=== PATIENT | male | born 1960 | race Caucasian/White ===

== ENCOUNTER 2020-11-08 11:03 | Emergency (ER) | payer BC, SELFPAY ==
--- NOTE | 2020-11-08 11:07 | ED.MALEGU ---
HPI - Male Genitourinary General Chief complaint: Urogenital-Male Stated complaint: PAINFUL URINATION Time Seen by Provider: 11/08/20 11:07 Source: patient and RN notes reviewed History of Present Illness HPI Narrative: Patient is a 60-year-old male who presents the urgent care with complaints of painful urination and frequency. Patient states that it started 1 week ago and has worsened in the last couple days. Patient reports of some intermittent nausea without vomiting or abdominal pain. Reports of suprapubic pressure. Denies of fever. States that he has cut out soda but otherwise has not done anything [id number] for his symptoms. Denies of blood in the urine or history of kidney stones. No other acute complaints. No acute distress noted. Patient aware of the plan of care. Some parts of this dictation were generated by voice recognition software and may contain typographical and/or grammatical inaccuracies. Related Data Home Medications Medication Instructions Recorded Confirmed No Home Medications 11/08/20 11/08/20 Allergies Allergy/AdvReac Type Severity Reaction Status Date / Time Sulfa (Sulfonamide Allergy Unknown Verified 12/24/18 10:23 Antibiotics) sulfanilamide Allergy Unknown Verified 05/29/10 15:23 Review of Systems Review of Systems: Narrative: CONSTITUTIONAL: Denies fever, chills, or sweats. EYES: Denies visual changes, redness, or discharge. ENT: Denies rhinorrhea, congestion, sore throat, or otalgia. CARDIOVASCULAR: Denies chest pain, palpitations, or edema. RESPIRATORY: Denies cough or dyspnea. GASTROINTESTINAL: Reports of nausea without abdominal pain, vomiting or diarrhea GENITOURINARY: Reports of dysuria and urinary frequency with suprapubic pressure SKIN: Denies rash or itching. MUSCULOSKELETAL: Denies back pain, joint pain, or myalgia. NEUROLOGIC: Denies headache, numbness, or weakness. All other systems reviewed are negative, except as documented in HPI. FORMERLY [facility], [facility] Family History Family History (Updated 01/10/16 @ 23:19 by DOCTOR UNKNOWN) Father Cerebrovascular accident Family history of diabetes mellitus in first degree relative Sibling Family history of diabetes mellitus in first degree relative Social History Social History Alcohol intake: current Comments At the time of my signature, I reviewed and agree with the nursing past medical, surgical, social, and family history. There is no relevant family history pertinent to the patient complaint. Exam Narrative: Exam Narrative: GENERAL: This is a well-nourished, well-developed patient, in no apparent distress. HEAD: normocephalic, atraumatic. EYES: PERRL. Sclera clear/white. Vision is grossly intact. EARS: External ears normal NOSE: External nose normal with no obvious nasal discharge, nares without redness, no rhinorrhea. THROAT: Mucous membranes moist NECK: Neck supple CARDIOVASCULAR: Regular rate and rhythm without murmurs, gallops, or rubs. RESPIRATORY: Clear to auscultation. Breath sounds equal bilaterally. No wheezes, rales, or rhonchi. GASTROINTESTINAL: Abdomen soft, mild suprapubic tenderness,, nondistended. Bowel sounds are active. SKIN: warm, intact with no suspicious lesions or rash, good texture and turgor. NEURO: awake, alert, and oriented to person, place and time. There were no obvious focal neurologic abnormalities. EXTREMITIES: No clubbing, cyanosis, or edema. BACK: Negative bilateral CVA tenderness Course Vital Signs Vital signs: Vital Signs Temperature 98 F 11/08/20 11:10 Pulse Rate 74 11/08/20 11:10 Respiratory Rate 16 11/08/20 11:10 Blood Pressure 120/89 11/08/20 11:10 Pulse Oximetry 99 11/08/20 11:10 Temperature 98 F 11/08/20 11:10 Pulse Rate 74 11/08/20 11:10 Respiratory Rate 16 11/08/20 11:10 Blood Pressure 120/89 11/08/20 11:10 Pulse Oximetry 99 11/08/20 11:10 Reviewed MDM - Male Genitourinary MDM Narrative Medical decision making narrative: Rev
[2020-11-08 11:10] VITALS: BP 120/89; PULSE 74; RESP 16; TEMP 36.6; O2SAT 99
== END 2020-11-08 11:37 | disposition home or self-care (01) ==
PROVIDERS: Emergency Provider Nurse Practitioner Family
DX: R30.0 Dysuria (principal)
CPT/HCPCS: 81003; 99212; G0463

== ENCOUNTER 2022-04-15 17:15 | Emergency (ER) | payer BC, SELFPAY ==
[2022-04-15 17:38] VITALS: BP 143/83; PULSE 91; RESP 16; TEMP 37; O2SAT 96
--- NOTE | 2022-04-15 18:57 | ED.SKABFB ---
HPI - Skin/Abscess/Foreign Bdy General Chief complaint: Skin/Abscess/Foreign Body Stated complaint: rash Time Seen by Provider: 04/15/22 18:53 Source: patient Mode of arrival: ambulatory Limitations: no limitations History of Present Illness HPI narrative: Patient presents today complaining of a painful and itchy rash to his right low back that has been present x1 week. He has tried Benadryl cream with minimal relief. He has had chickenpox as a child. No shingles vaccine. Related Data Allergies Allergy/AdvReac Type Severity Reaction Status Date / Time Sulfa (Sulfonamide Allergy Mild Hives Verified 04/15/22 18:39 Antibiotics) sulfanilamide Allergy Mild Hives Verified 04/15/22 18:39 Review of Systems Review of Systems: CONSTITUTIONAL: Denies body aches, fever, chills, or sweats. EYES: Denies visual changes, redness, or discharge. ENT: Denies rhinorrhea, congestion, sore throat, or otalgia. CARDIOVASCULAR: Denies chest pain, palpitations, or edema. RESPIRATORY: Denies cough or dyspnea. GASTROINTESTINAL: Denies abdominal pain, nausea, vomiting, or diarrhea. GENITOURINARY: Denies dysuria or hematuria. SKIN: + Painful rash MUSCULOSKELETAL: Denies back pain, joint pain, or myalgia. NEUROLOGIC: Denies headache, numbness, tingling, or weakness. PSYCH: Denies depression or anxiety. [facility] Family History Family History Father Cerebrovascular accident Family history of diabetes mellitus in first degree relative Sibling Family history of diabetes mellitus in first degree relative Social History Social History Alcohol intake: current Comments At time of signature, I have reviewed and agree with nursing past medical, surgical, social and family history unless otherwise noted. Please see nursing chart for further information. There is no relevant family history pertinent to the presenting complaint Exam Narrative: GENERAL: Well-appearing, well-nourished, and in no acute distress. HEAD: Normocephalic, atraumatic. EYES: EOMI. No redness or drainage. Conjunctivae normal. ENT: Mucous membranes pink and moist. NECK: Normal AROM. CHEST: No respiratory distress. EXTREMITIES: Normal range of motion. No edema. SKIN: Warm, dry. Capillary refill normal. Normal skin turgor. Cluster of vesicles surrounded by erythema to the right low back. tender to palpation NEURO: No focal deficits. Alert and oriented x3. Gait steady. PSYCH: Normal affect. No signs of depression or anxiety. Course Course Level of Care: Express Care Visit Vital Signs Vital signs: Vital Signs Temperature 98.6 F 04/15/22 17:38 Pulse Rate 91 04/15/22 17:38 Respiratory Rate 16 04/15/22 17:38 Blood Pressure 143/83 H 04/15/22 17:38 Pulse Oximetry 96 04/15/22 17:38 Oxygen Delivery Room Air 04/15/22 17:38 Temperature 98.6 F 04/15/22 17:38 Pulse Rate 91 04/15/22 17:38 Respiratory Rate 16 04/15/22 17:38 Blood Pressure 143/83 H 04/15/22 17:38 Pulse Oximetry 96 04/15/22 17:38 Oxygen Delivery Room Air 04/15/22 17:38 Reviewed. Pt has been instructed to follow up with his PCP regarding his elevated blood pressure today. MDM - Skin/Abscess/Foreign Bdy Differential Diagnosis Differential diagnosis: Likely abscess of skin or subcutaneous tissue, herpes zoster, cellulitis, impetigo and contact dermatitis Critical Care Time Critical Care Time Critical Care Time: No Discharge Plan Discharge Clinical Impression: Herpes zoster Qualifiers: Herpes zoster complications: without complications Qualified Code(s): B02.9 - Zoster without complications Patient Disposition: Home, Self-Care Condition: Stable Instructions: Shingles (ED) Additional Instructions: You have been diagnosed with shingles. Please take the antiviral medication as prescribed. Take Tylenol or ibuprofen for p
== END 2022-04-15 19:03 | disposition home or self-care (01) ==
PROVIDERS: Emergency Provider Nurse Practitioner; PCP Internal Medicine
DX: B02.9 Zoster without complications (principal)
CPT/HCPCS: 99213; G0463

== ENCOUNTER 2022-06-19 13:38 | Emergency (ER) | payer BC, SELFPAY ==
[2022-06-19 13:46] VITALS: BP 122/74; PULSE 83; RESP 16; TEMP 36.3; O2SAT 99
--- NOTE | 2022-06-19 13:54 | ED.URI ---
HPI - URI/Sore Throat General Chief Complaint: Upper Respiratory Infection Stated Complaint: SINUS CONGESTION Time Seen by Provider: 06/19/22 13:54 Source: patient Mode of arrival: ambulatory Limitations: no limitations History of Present Illness HPI Narrative: 62-year-old male presents with complaint of sinus congestion for 2 weeks. Reports that his symptoms initially started with the flu a cannot care to congestion. Is taking [id number] DayQuil NyQuil cold and Sinus and also Benadryl without relief. Afebrile. Denies chest pain and shortness of breath. Is concern for sinus infection. All systems reviewed and negative except as noted above. Related Data Allergies Allergy/AdvReac Type Severity Reaction Status Date / Time Sulfa (Sulfonamide Allergy Mild Hives Verified 04/15/22 18:39 Antibiotics) sulfanilamide Allergy Mild Hives Verified 04/15/22 18:39 Review of Systems Review of Systems: CONSTITUTIONAL: Denies fever, chills, or sweats. EYES: Denies visual changes, redness, or discharge. ENT: Reports rhinorrhea, congestion, sinus pressure. Denies sore throat, or otalgia. CARDIOVASCULAR: Denies chest pain, palpitations, or edema. RESPIRATORY: Denies cough or dyspnea. GASTROINTESTINAL: Denies abdominal pain, nausea, vomiting, or diarrhea. GENITOURINARY: Denies dysuria or hematuria. SKIN: Denies rash or itching. MUSCULOSKELETAL: Denies back pain, joint pain, or myalgia. NEUROLOGIC: Denies headache, numbness, or weakness. PSYCHIATRIC: Denies anxiety or depression. All other systems reviewed are negative, except as documented in HPI. PMFSH Family History Family History Father Cerebrovascular accident Family history of diabetes mellitus in first degree relative Sibling Family history of diabetes mellitus in first degree relative Social History Social History Alcohol intake: current Comments At time of signature, agree with nursing past medical, surgical, social and family history. There is no relevant family history pertinent to the presenting complaint. Exam Narrative: GENERAL: This is a well-nourished, well-developed patient, in no apparent distress. HEAD: normocephalic, atraumatic. EYES: PERRL. Sclera clear/white. Vision is grossly intact. EARS: External ears normal, auditory canals clear and without drainage, TMs normal without perforation. Hearing grossly intact. NOSE: External nose normal with thick cloudy nasal drainage with erythema and swelling to both nares. Bilateral maxillary sinus tenderness. THROAT: Mucous membranes moist, erythema with postnasal drainage. NECK: Neck supple, non-tender without lymphadenopathy, masses or thyromegaly. CARDIOVASCULAR: Regular rate and rhythm without murmurs, gallops, or rubs. RESPIRATORY: Clear to auscultation. Breath sounds equal bilaterally. No wheezes, rales, or rhonchi. SKIN: warm, Dry, intact with no suspicious lesions or rash, good texture and turgor. NEURO: awake, alert, and oriented to person, place and time. There were no obvious focal neurologic abnormalities. EXTREMITIES: No joint tenderness, effusion, or edema noted. Course Course Level of Care: Express Care Visit Vital Signs Vital signs: Vital Signs Temperature 36.3 C L 06/19/22 13:46 Pulse Rate 83 06/19/22 13:46 Respiratory Rate 16 06/19/22 13:46 Blood Pressure 122/74 06/19/22 13:46 Pulse Oximetry 99 06/19/22 13:46 Temperature 36.3 C L 06/19/22 13:46 Pulse Rate 83 06/19/22 13:46 Respiratory Rate 16 06/19/22 13:46 Blood Pressure 122/74 06/19/22 13:46 Pulse Oximetry 99 06/19/22 13:46 Reviewed MDM - URI/Sore Throat MDM Narrative Medical decision making narrative: Patient is aware of diagnosis, understands and agrees to treatment plan. Anticipatory guidance given. Patient agrees to follow-up as directed and is aware of reasons to
== END 2022-06-19 14:06 | disposition home or self-care (01) ==
PROVIDERS: Emergency Provider Nurse Practitioner Family; PCP Internal Medicine
DX: J01.90 Acute sinusitis, unspecified (principal)
CPT/HCPCS: 99213; G0463

== ENCOUNTER 2022-08-15 08:41 | Outpatient (CLI) | payer BC, SELFPAY ==
--- NOTE | ~2022-08-15 | XR_ITS ---
EXAMINATION:[id number] DATE: 08/15/2022 09:00 INDICATION: Neck pain TECHNIQUE: AP, lateral, lateral swimmers and odontoid views of the cervical spine are provided. COMPARISON: None FINDINGS: Alignment is normal. The odontoid process is intact. No fracture is identified. The vertebr al body heights are maintained. There is moderate loss of intervertebral disc space height at C5-6 an d C6-7. There is multilevel moderate facet and uncovertebral joint osteoarthritis. Prevertebral soft tissues are normal. IMPRESSION: 1. Mild to moderate cervical spondylosis without acute findings. Reviewed, dictated and finalized at location [facility]. [employer]
== END 2022-08-15 08:42 | disposition home or self-care (01) ==
LOC: ANHIMG 08:44
PROVIDERS: PCP Internal Medicine; Visit Provider Nurse Practitioner
DX: M47.892 Other spondylosis, cervical region (principal)
CPT/HCPCS: 72040

== ENCOUNTER 2022-09-16 15:30 | Outpatient (RCR) | payer BC, SELFPAY ==
--- NOTE | 2022-08-28 09:46 | PTOPEVAL1 ---
Assessment and note entered by Chris Parks, PT, DPT Evaluation Information Assessment Status Evaluation Diagnosis neck pain with radiculopathy Onset 3 month Subjective Information Pt states he has a pinched nerve in his neck cause pain down into his R arm and hand. He states his fingers are numbness, he states the pain in the back of his arm is more of a tearing pain. 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 Pt states nothing makes his pain better, other than sitting in his recliner. Reported Pain Level Pain Score 5: Self Report Assessment PT Clinical Summary Jae presents to therapy today for his initial evaluation with a diagnosis of cervicalgia. Today he demonstrates decreased active cervical ROM in all directions that is limited by pain, he also has forward head posture with a flattened thoracic curve. He reports numbness and tingling throughout his entire arm, at its worst in his hand. He reports a decreased in peripheral symptoms with cervical distraction. Skilled physical therapy services are indicated to improve ROM, pain, sensation, to educate on body mechanics and posture, and to return to baseline function. Plan of Care Interventions Electrical Stimulation,Hot Pack/Cold Pack,Manual Therapy,Mechanical Traction,Neuro Re-education, Patient/Caregiver Educati,Therapeutic Activities, Therapeutic Exercise PT Services Indicated Yes Treatment Frequency and 2x/wk for 4 wks Duration These treatments will address the objective and functional deficits as defined above. The patient will be advanced safely and appropriately in order for the patient to progress towards his/her prior level of function. Additional exercises will be introduced and as well as a comprehensive home exercise program upon discharge, if needed, ?to ensure carryover of functional gains achieved in the clinic. This treatment plan has been reviewed and agreement upon by the patient.
--- NOTE | 2022-09-16 15:48 | PTOPDC ---
Assessment and note entered by Chris Parks, PT, DPT Evaluation Information Assessment Status Discharge Diagnosis neck pain with radiculopathy Onset 3 month Subjective Information Pt reports no has seen absolutely no improvements with therapy to far. He states he just needs to get an MRI to actually find out whats wrong. He states he can sleep through the night but wakes up in the morning with so much pain. He states he was sitting supporting himself with his R arm and it just completely gave out Pt sits with forward and rounded posture with a downward gaze during subjective information. Reported Pain Level Pain Score 7: Self Report Assessment PT Clinical Summary Jae presents to therapy today for his progress report following 6 visits of skilled therapy to treat his cervical radiculopathy. Today he reports 0% improvement in his overall symptoms. His cervical active ROM has worsened compared to his initial evaluation 3 weeks ago but his passive ROM remains unchanged. He demonstrates mild strength deficits in his R shoulder compared to his L. He would like to be discharged from skilled therapy services at this time and to return to his provider to discuss a further POC. Plan of Care PT Services Indicated No
== END 2022-09-17 11:16 | disposition home or self-care (01) ==
LOC: ANHGOSHPT 15:30
PROVIDERS: PCP Internal Medicine; Visit Provider Nurse Practitioner
DX: M54.2 Cervicalgia (principal)
CPT/HCPCS: 97012; 97110; 97140; 97161

== ENCOUNTER → 2022-09-25 08:53 | Outpatient (CLI) | payer BC, SELFPAY ==
--- NOTE | ~2022-09-25 | MR_ITS ---
MRI of the cervical spine Clinical History: Neck pain Technique: Axial T2-weighted and gradient images, and sagittal T1-weighted, T2-weighted, and STIR jaime ges were acquired. Findings: There is no fracture or subluxation of the cervical spine. Vertebral bodies maintain normal height and alignment. No suspicious bone marrow signal abnormality seen. Intraosseous hemangioma not ed in the T1 vertebral body. At C2-C3, there is no disc bulge or herniation. No spinal canal stenosis, cord compression, or neural foraminal narrowing. At C3-C4, there is no disc bulge or herniation. No spinal canal stenosis, cord compression, or neural foraminal narrowing. At C4-C5, there is minimal disc ossify complex and probable mild bilateral neural foraminal narrowing with mild facet hypertrophy. No spinal canal stenosis or cord compression. At C5-C6, there is mild disc osteophyte complex. There is probable mild facet joint arthropathy. Ther e is bilateral neural foraminal narrowing. No shweta spinal canal stenosis or cord compression. At C6-C7, there is disc osteophyte complex. There is bilateral neural foraminal narrowing, right wors e than left. No shweta canal stenosis or cord compression. No abnormal signal seen in the spinal cord. Paravertebral soft tissues are unremarkable. Impression: Mild degenerative spondylosis, as above. Reviewed, dictated and finalized at [place] [facility]. Impression: Mild degenerative spondylosis, as above.
== END ==
PROVIDERS: PCP Nurse Practitioner; Visit Provider Nurse Practitioner
DX: M47.812 Spondylosis without myelopathy or radiculopathy, cervical region (principal)
CPT/HCPCS: 72141

== ENCOUNTER 2023-01-08 15:50 | Outpatient (CLI) | payer BC, SELFPAY ==
--- NOTE | ~2023-01-08 | XR_ITS ---
XR abdomen/kub 1V 01/08/2023 16:18 INDICATION: Acute right flank pain TECHNIQUE: KUB COMPARISON: 05/26/2010 FINDINGS: Bowel gas pattern is normal. There are cholecystectomy clips. There is no evidence of free air, mass, organomegaly, ascites or obstruction. No abnormal calculi are seen. The bones appear int act. IMPRESSION: 1: No acute abdominal abnormality identified. Reviewed, dictated and finalized at location A.
--- NOTE | ~2023-01-08 | CT_ITS ---
EXAMINATION: CT abdomen pelvis wo con DATE: 01/08/2023 16:12 INDICATION: Acute right flank pain TECHNIQUE: Computed tomography (CT) of the abdomen and pelvis was performed without intravenous contr ast. The dose-length product was 1520.98 mGy-cm. Automated exposure control and iterative reconstruct ion technique were employed. COMPARISON: CT dated 10/31/2015. FINDINGS: Heart size normal. No significant pleural or pericardial effusion. Lung bases are unremarka ble. Mild atherosclerosis without aneurysm. Small bilateral fat-containing inguinal hernias. No lymph adenopathy. There are cholecystectomy clips. The liver, spleen, pancreas, adrenal glands and right kidney are unremarkable. There is a 2 cm left r enal cyst. No hydronephrosis. Prostate gland is enlarged. Bladder is unremarkable. Nonobstructive bow el pattern. Colonic diverticulosis without evidence for diverticulitis. IMPRESSION: 1. No acute abdominal abnormality. Reviewed, dictated and finalized at location A.
== END 2023-01-08 15:51 | disposition home or self-care (01) ==
LOC: ANHIMG 15:54
PROVIDERS: PCP Internal Medicine; Visit Provider Nurse Practitioner Adult Health
DX: R10.9 Unspecified abdominal pain (principal)
CPT/HCPCS: 74018; 74176

== ENCOUNTER 2023-04-10 13:32 | Emergency (ER) | payer BC, SELFPAY ==
[2023-04-10 13:41] VITALS: BP 134/82; PULSE 85; RESP 16; TEMP 36.8; O2SAT 97
--- NOTE | 2023-04-10 13:52 | ED.SKABFB ---
HPI - Skin/Abscess/Foreign Bdy General Chief complaint: Skin/Abscess/Foreign Body Stated complaint: Cist on shoulder Time Seen by Provider: 04/10/23 13:52 Source: patient, RN notes reviewed and old records reviewed Mode of arrival: ambulatory Limitations: no limitations History of Present Illness HPI narrative: 63-year-old male presents to the [facility] with a cyst to the left anterior shoulder. Patient states a week ago was irritating him so he tried squeezing it and got some pus out of it. On Wednesday or states that it swelled back up became red, warm and tried squeezing it again. Was unable to get any fluid out at that time. Today it is painful, red, swollen. States he has had a cyst-like structure there for many years. ? 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 Onset (ago): week(s) (1) Related Data Home Medications Medication Instructions Recorded Confirmed tamsulosin 0.4 mg capsule 0.4 mg PO QHS 08/10/22 08/10/22 Allergies Allergy/AdvReac Type Severity Reaction Status Date / Time Sulfa (Sulfonamide Allergy Mild Hives Verified 08/10/22 08:40 Antibiotics) sulfanilamide Allergy Mild Hives Verified 08/10/22 08:40 Review of Systems Review of Systems: All systems reviewed & are unremarkable except as noted in HPI and below Constitutional: Constitutional: Reports no additional constitutional complaints Eyes: Eyes: Reports no additional eye complaints ENT: Reports system reviewed and no additional complaints, except as documented Cardiovascular: Cardiovascular: Reports no additional cardiovascular complaints, Denies chest pain and Denies dyspnea Respiratory: Respiratory: Reports no additional respiratory complaints, Denies chest congestion, Denies cough and Denies dyspnea Gastrointestinal: Gastrointestinal: Reports no additional gastrointestinal complaints, Denies abdominal pain, Denies nausea and Denies vomiting Musculoskeletal: Musculoskeletal: Reports no additional musculoskeletal complaints Integumentary/Breasts: Skin/Breast: Reports as per HPI Neurologic: Reports system reviewed and no additional complaints, except as documented Psychiatric: Psychiatric: Reports no additional psychiatric complaints Allergic/Immunologic: Allergic/Immunologic: Reports no additional allergic/immunologic complaints [facility]LY [facility] Family History Family History (Updated 08/10/22 @ 08:41 by Divine Babcock [facility]) Father Cerebrovascular accident Family history of diabetes mellitus in first degree relative Sibling Family history of diabetes mellitus in first degree relative Mother Cancer Social History Social History Smoking status: Former smoker Alcohol intake: current Substance use type: does not use Lack of Transportation: No Lack of Food: Never True Current Housing: I Have Housing Concerned About Future Housing: No Difficulty Paying Gas/Electric Bills: No Difficulty Paying for Meds: No Currently Unemployed: No Education: Trade/Vocational Certificate Difficulty w/ Childcare or Family Care: No Comments At the time of my signature, I reviewed and agree with the nursing past medical, surgical, social, and family history. There is no relevant family history pertinent to the patient complaint. Exam Const: General: cooperative, healthy appearing, comfortable, no acute distress, well developed, alert and well nourished Nutritional Appearance: well nourished Orientation/consciousness: patient oriented x3 Limitations: no limitations HENMT: Head: normal to inspection Ears: hearing grossly normal bilaterally and external ears normal Face/Nose/Sinus: Normal external nose present, Normal nares present, Normal nasal mucous membranes and turbinates present, normal facial exam and face symmetric Face and sinus: normal facial exam and face symmetric Mouth: Yes Normal oral and palatal muco
== END 2023-04-10 14:31 | disposition home or self-care (01) ==
PROVIDERS: Emergency Provider Nurse Practitioner; PCP Internal Medicine
DX: L02.414 Cutaneous abscess of left upper limb (principal); D17.1 Benign lipomatous neoplasm of skin and subcutaneous tissue of trunk; Z87.891 Personal history of nicotine dependence; I10 Essential (primary) hypertension; K21.9 Gastro-esophageal reflux disease without esophagitis
CPT/HCPCS: 10060; 87070; 87075; 87076; 87205; 99213; G0463

== ENCOUNTER 2023-12-12 10:09 | Inpatient (IN) | payer OTHER, SELFPAY ==
[2023-12-12] VITALS (12 sets, daily range): BP systolic 119–151; BP diastolic 80–90; PULSE 68–87; RESP 11–27; TEMP 36.3–36.6; O2SAT 92–98; BMI 37.3
--- NOTE | ~2023-12-12 | XR_ITS ---
EXAMINATION: XR sm bowel follow through DATE: 12/13/2023 12:03 INDICATION: Small bowel obstruction. TECHNIQUE: Oral contrast was administered, and a time course of radiographs of the abdomen was obtain ed. Fluoroscopy of the small bowel was not performed. Fluoroscopy exposure time was 0 minutes. The to flaca number of images was 8. COMPARISON: CT abdomen and pelvis 12/12/2023 FINDINGS: The nasogastric tube tip is in the stomach. Surgical clips in the right upper quadrant are likely fro m cholecystectomy. There are dilated loops of proximal small bowel. Transit time from the stomach to proximal colon was approximately 1.5 hours. IMPRESSION: 1. Persistently dilated proximal small bowel with normal transit time of contrast to the colon, consi stent with partial obstruction. Reviewed, dictated and finalized at location A. IMPRESSION: 1. Persistently dilated proximal small bowel with normal transit time of contra st to the colon, consistent with partial obstruction.
--- NOTE | ~2023-12-12 | CT_ITS ---
EXAMINATION: CT abdomen pelvis w con DATE: 12/12/2023 11:35 INDICATION: Abdominal pain, nausea, vomiting and diarrhea TECHNIQUE: Computed tomography (CT) of the abdomen and pelvis was performed with 100 mL Omnipaque-350 intravenous contrast. Automated exposure control and iterative reconstruction technique were employe d. The dose-length product was 1696.07 mGy-cm. COMPARISON: 01/08/2023 FINDINGS: Mild bronchiectasis and dependent atelectasis in the bilateral lower lobes. Heart size is normal. Ath erosclerotic coronary artery and aortic valve calcifications. No pericardial or pleural effusion. Cho lecystectomy clips the gallbladder fossa. Liver, spleen, pancreas, bilateral adrenal glands and right kidney are normal. There are couple left renal cysts the larger measuring 2.5 cm. Mild diverticulosi s without adjacent inflammatory stranding to suggest diverticular colitis. Normal appendix. There is mild dilation of a few segments of small bowel immediately proximal to a focal stricture with minimal surrounding fluid where the small bowel makes a sharp nearly 180 degree change in coarse along the l ateral margin of the junction of the third and fourth portion of the duodenum. There is however gas a nd fluid throughout the more distal small bowel with small amount of additional ascites in the right lower quadrant. No abscess or free intraperitoneal gas. Bladder is normal. Prostatomegaly. Moderate-s ized bilateral fat-containing inguinal hernias. No pathologically enlarged abdominal or pelvic lympha denopathy. Moderate lumbar spondylosis. Chronic mild anterior wedging at T11 and T12. IMPRESSION: 1. Likely early or partial small bowel obstruction with transition point central in the medial left u pper quadrant near the junction of the third and fourth portion of the duodenum potentially related t o an adhesion. Reviewed, dictated and finalized at location A. IMPRESSION: 1. Likely early or partial small bowel obstruction with transition point centra l in the medial left upper quadrant near the junction of the third and fourth p ortion of the duodenum potentially related to an adhesion.
--- NOTE | ~2023-12-12 | XR_ITS ---
EXAMINATION: XR abdomen gastric tube insert DATE: 12/12/2023 12:19 INDICATION: Nasogastric tube placement TECHNIQUE: A supine view of the abdomen and lower chest was obtained for evaluation of feeding tube placement. COMPARISON: CT dated FINDINGS: Nasogastric tube extends into the stomach with distal tip the gastric antrum near the pylorus. Cholec ystectomy clips in right upper quadrant. Dilated gas-filled loops of small bowel in the upper abdomen consistent with small bowel obstruction. Lung bases are clear. IMPRESSION: 1. Nasogastric tube in stomach with distal tip near the gastric pylorus. Could consider withdrawal by 8 cm. 2. Small bowel obstruction. Reviewed, dictated and finalized at location A.
--- NOTE | 2023-12-12 10:25 | ED.ABDPAIN ---
HPI - Abdominal Pain General Chief Complaint: Abdominal Pain Stated Complaint: abd pain Time Seen by Provider: 12/12/23 10:13 History of Present Illness HPI narrative: 63-year-old male with history of cholecystectomy approximately 10 years ago presented to the emergency department for evaluation for nausea vomiting diarrhea and mid abdominal pain. Patient reports symptoms have started on and have been worsening. Patient had a tele doc appointment and was prescribed Bentyl and Zofran yesterday but states these medications have not been helping. Patient feels that his abdomen is more distended than normal. Patient denies any prior history of ureteral calculi. Patient denies any difficulty starting urination. Patient denies any associated chest pain or shortness of breath. Related Data Home Medications Medication Instructions Recorded Confirmed dicyclomine 10 mg capsule 20 mg PO QID 12/12/23 12/12/23 ondansetron 8 mg disintegrating 8 mg PO BID PRN Nausea And Vomiting 12/12/23 12/12/23 tablet Allergies Allergy/AdvReac Type Severity Reaction Status Date / Time Sulfa (Sulfonamide Allergy Mild Hives Verified 12/12/23 10:11 Antibiotics) sulfanilamide Allergy Mild Hives Verified 12/12/23 10:11 Review of Systems Review of Systems: All systems reviewed & are unremarkable except as noted in HPI and below PMFSH Past Medical History Medical History (Updated 12/12/23 @ 17:57 by Lennox Jimenez MD) Gastroesophageal reflux disease Hypertension Surgical History Surgical History (Updated 12/12/23 @ 14:41 by Araceli Moreno PA-C) History of laparoscopic cholecystectomy History of tonsillectomy Family History Family History Father Cerebrovascular accident Family history of diabetes mellitus in first degree relative Sibling Family history of diabetes mellitus in first degree relative Mother Cancer Social History Social History (Updated 12/12/23 @ 14:41 by Araceli Moreno PA-C) Social History: Surrogate medical decision maker: Bailey Edwards, spouse. Code status: Full code. Smoking status: Former smoker Alcohol intake: current Drinks per week: 2 Substance use type: does not use Do You Feel Safe in your Home?: Yes Lack of Transportation: No Lack of Food: Never True Current Housing: I Have Housing Concerned About Future Housing: No Difficulty Paying Gas/Electric Bills: No Difficulty Paying for Meds: No Currently Unemployed: No Education: Trade/Vocational Certificate Difficulty w/ Childcare or Family Care: No Spiritual care concerns: No Exam Narrative: APPEARANCE: Well appearing, no pain, no distress, well-nourished. HEAD: normocephalic, atraumatic. EYES: PERRLA/EOMI, conjunctivae clear. NOSE: Normal no drainage EARS:TMS clear with good light reflex. THROAT: Pharynx clear, no exudate. NECK: Supple. No adenopathy, no masses. RESPIRATORY: Airway patent, respirations nonlabored. Clear to auscultation bilaterally, no rales, rhonchi, wheezing. CARDIOVASCULAR: Regular rate and rhythm without murmurs rubs or gallops. ABDOMINAL: Soft, distended, normal bowel sounds, diffusely tender MUSCULOSKELETAL: Moves all extremities. Strength/ROM intact, No edema, No calf tenderness. NEURO: Alert. Cranial nerves II through XII intact. Grossly intact SKIN: Warm, dry. Normal Color Course Course Emergency Course: Patient was admitted to the hospitalist with surgical consult for small bowel obstruction. Vital Signs Vital signs: Vital Signs Temperature 97.9 F 12/12/23 10:09 Pulse Rate 87 12/12/23 10:09 Respiratory Rate 19 12/12/23 10:09 Blood Pressure 151/90 H 12/12/23 10:09 Pulse Oximetry 97 12/12/23 10:09 Oxygen Delivery Room Air 12/12/23 10:09 Temperature 97.7 F 12/12/23 14:37 Pulse Rate 68 12/12/23 14:37 Respiratory Rate 18 12/12/23 14:37 Blood Pressure 132/86
[2023-12-12 10:27] LABS: Basophils Absolute Auto 0.1 K/mm3 (0.0-0.1); Basophils Percent Auto 0.5 % (0.2-1.2); Eosinophils Absolute Auto 0.2 K/mm3 (0-0.3); Eosinophils Percent Auto 1.5 % (0-4.4); Hematocrit 52.4 % (42.0-52.0); Hemoglobin 17.5 g/dL (14.0-18.0); Immature Granulocyte Absolute 0.06 K/mm3 (0.00-0.031); Immature Granulocyte Percent A 0.5 % (0-0.5); Lymphocytes Absolute Auto 1.47 K/mm3 (0.9-3.2); Lymphocytes Percent Auto 11.3 % (18.3-44.2); Mean Corpuscular HGB Conc 33.4 g/dl (32-36); Mean Corpuscular Hemoglobin 28.1 pg (26-34); Mean Corpuscular Volume 84.1 fl (80-100); Mean Platelet Volume 9.7 fl (7.4-10.4); Monocytes Absolute Auto 1.1 K/mm3 (0.1-0.6); Monocytes Percent Auto 8.5 % (2.6-8.5); Neutrophils Absolute Auto 10.1 K/mm3 (1.3-6.7); Neutrophils Percent Auto 77.7 % (45.5-73.1); Platelet Count Result 300 k/mm3 (150-375); Red Blood Count 6.23 M/mm3 (4.6-6.20); Red Cell Distribution Width 12.9 % (11.5-14.5)
[2023-12-12] MEDS: HYDROmorphone HCL INJ (*CRX) 1 MG/ML SYR 0.5 MG IV PUSH (10:33)
[2023-12-12] MEDS: SODIUM CHLORIDE 0.9% IV 1,000 ML 999 ML IV CONT (10:33)
[2023-12-12] MEDS: ONDANSETRON INJ 4 MG/2 ML VIAL IV PUSH (10:34)
[2023-12-12 10:40] LABS: Alanine Aminotransferase 44 U/L (6-50); Albumin Level 4.9 g/dL (3.5-5.1); Alkaline Phosphatase 91 U/L (38-126); Anion Gap 11 mmol/L (4-12); Aspartate Amino Transferase 30 U/L (17-59); Bilirubin,Total 1.2 mg/dL (0.2-1.3); Blood Urea Nitrogen 12 mg/dL (9-20); Calcium 9.3 mg/dL (8.4-10.2); Carbon Dioxide 29 mmol/L (22-30); Chloride 99 mmol/L (98-107); Estimated CRCL calculation 77 ml/min; Estimated Glomerular Filt Rate > 60; Glucose 136 mg/dL (65-110); Lipase 112 U/L (23-300); Potassium 4.1 mmol/L (3.4-5.0); Sodium 139 mmol/L (137-145)
[2023-12-12 11:58] LABS: Appearance Urine Clear (Clear); Bacteria Urine None Seen /hpf; Bilirubin Urine Negative (Negative); Blood Urine Negative (Negative); Color Urine Dark Yellow (Yellow); Glucose Urine UA Negative (Negative); Ketones Urine Negative (Negative); Leukocyte Esterase Ur Negative LEU/UL (Negative); Nitrate Urine Negative (Negative); Non Pathogenic Casts 0-2; Protein Urine Trace mg/dL (Negative); RBC Urine 0-2 /hpf (0-2); Squamous Epithelial Cell Urine None Seen /hpf (Few); WBC Urine 0-5 /hpf (0-3)
[2023-12-12 11:59] LABS: Specific Grav Ur > 1.045 (1.001-1.035)
[2023-12-12 12:00] LABS: Add Urine Microscopic? YES
--- NOTE | 2023-12-12 12:12 | ECG_ITS ---
Test Date: 2023-12-12 12:28:51 Measurements Intervals [place] Rate: 78 P: 12 MS: 183 QRS: -35 QRSD: 84 T: 14 QT: 383 QTc: 437 Interpretive Statements SINUS RHYTHM MARKED LEFT AXIS DEVIATION [QRS AXIS < -30] PATTERN CONSISTENT WITH PULMONARY DISEASE MINIMAL VOLTAGE CRITERIA FOR LVH, CONSIDER NORMAL VARIANT [MEETS CRITERIA IN ONE OF: R(aVL), S(V1), R(V5), R(V5/V6)+S(V1)] No previous ECG available for comparison Electronically Signed On 12-12-2023 16:18:38 CDT by Yon Cheema M.D.
[2023-12-12] MEDS: SODIUM CHLORIDE 0.9% IV 1,000 ML 250 ML IV CONT (12:33)
[2023-12-12 12:51] LABS: Lactic Acid Reflex 1.2 mmol/L (0.7-2.0)
[2023-12-12 12:57] LABS: Prothrombin Time 13.1 Seconds (11.1-14.7)
[2023-12-12 12:58] LABS: Partial Thromboplastin Time 28.7 Seconds (22.3-36.8)
--- NOTE | 2023-12-12 13:17 | PC.NURSE ---
withdrew ng tube to 68 as recommended by radiology. pt tolerating well clear yellow drainage.
--- NOTE | 2023-12-12 14:00 | ADMGEN ---
This patient, Jae Edwards, was admitted to Medical Room 261-01. Patient/family oriented to hospital policies and general routines including ID bracelet, bed and alarms, visiting hours, pain management, procedures, bathroom and other care routines, personal items, smoking policy, room service/diet, and visiting hours. Information on how to activate the Rapid Response Team has been discussed. Patient/Family are encouraged to report perceived risks to care and to ask questions if they do not understand what they are told or what they should do.
--- NOTE | 2023-12-12 14:38 | PM.IMHP ---
H&P: HPI History of Present Illness Date/Time: 12/12/23 15:00 Chief Complaint: Abdominal pain. Narrative: This is a 63-year-old male with history of laparoscopic cholecystectomy and occasional GERD symptoms who presented to the emergency department for evaluation abdominal pain. The patient provides the following history. He has not been feeling well since with generalized abdominal discomfort, distention, nausea, and vomiting. He spoke with a tele medicine doctor and was prescribed ondansetron and dicyclomine which he has been taking without relief. He has not had a good bowel movement for several days. He is passing a small amount of flatus. He has never had similar symptoms. He denies fever, chills, sweats, hematemesis, melena, hematochezia, chest pain, and shortness of breath. He also denies sick contacts. No history of gallbladder disease, pancreatitis, or peptic ulcers. In the ED: Vital signs were stable on arrival. Labs were significant for WBC count of 13.0, hemoglobin 17.5, lactic acid 1.2, lipase 112. CT of the abdomen and pelvis showed likely earlier partial small bowel obstruction and he is being admitted in this setting for further treatment in surgery consultation. At the time of my evaluation his main complaint is that of discomfort from the NG tube. Review of Systems Review of Systems: 12 systems were reviewed and are negative except for as per HPI. [facility] Past Medical History Medical History (Updated 12/12/23 @ 18:34 by Araceli Moreno PA-C) Gastroesophageal reflux disease Hypertension Not currently on medication. Surgical History Surgical History History of laparoscopic cholecystectomy History of tonsillectomy Family History Family History Father Cerebrovascular accident Family history of diabetes mellitus in first degree relative Sibling Family history of diabetes mellitus in first degree relative Mother Cancer Social History Social History Social History: Surrogate medical decision maker: Bailey Edwards, spouse. Code status: Full code. Smoking status: Former smoker Alcohol intake: current Drinks per week: 2 Substance use type: does not use Do You Feel Safe in your Home?: Yes Lack of Transportation: No Lack of Food: Never True Current Housing: I Have Housing Concerned About Future Housing: No Difficulty Paying Gas/Electric Bills: No Difficulty Paying for Meds: No Currently Unemployed: No Education: Trade/Vocational Certificate Difficulty w/ Childcare or Family Care: No Spiritual care concerns: No Meds Home Medications and Allergies Home Medications Medication Instructions Recorded Confirmed Type dicyclomine 10 mg capsule 20 mg PO QID 12/12/23 12/12/23 History ondansetron 8 mg disintegrating 8 mg PO BID PRN Nausea And Vomiting 12/12/23 12/12/23 History tablet Allergies Allergy/AdvReac Type Severity Reaction Status Date / Time Sulfa (Sulfonamide Allergy Mild Hives Verified 12/12/23 10:11 Antibiotics) sulfanilamide Allergy Mild Hives Verified 12/12/23 10:11 Vital Signs Vital Signs - 24 hr 12/12/23 10:09 12/12/23 12:00 12/12/23 12:15 Temperature 97.9 F Pulse Rate 87 86 Respiratory Rate 19 27 H Blood Pressure 151/90 H Pulse Oximetry 97 95 98 Oxygen Delivery Room Air 12/12/23 12:30 12/12/23 12:45 12/12/23 13:00 Temperature Pulse Rate 78 80 85 Respiratory Rate 22 H 17 11 L Blood Pressure Pulse Oximetry 97 96 97 Oxygen Delivery 12/12/23 13:15 12/12/23 13:30 12/12/23 13:45 Temperature Pulse Rate 84 77 83 Respiratory Rate 13 17 19 Blood Pressure Pulse Oximetry 95 95 92 Oxygen Delivery 12/12/23 13:54 12/12/23 14:37 Temperature 97.7 F Pulse Rate 84 68 Respiratory Rate 19 18 Blood Pressure 119/
[2023-12-12] MEDS: PHENOL/SOD PHENO SPRAY CHERRY (*BKC) 1 SPRAY MUCOUS MEM (17:57)
[2023-12-13] MEDS: SODIUM CHLORIDE 0.9% IV 1,000 ML 125 ML IV CONT ×2 (00:15→08:25)
[2023-12-13 06:00] VITALS: BP 125/60; PULSE 70; RESP 18; TEMP 36.6; O2SAT 94
[2023-12-13 06:27] LABS: Hematocrit 44.5 % (42.0-52.0); Hemoglobin 14.3 g/dL (14.0-18.0); Mean Corpuscular HGB Conc 32.1 g/dl (32-36); Mean Corpuscular Hemoglobin 27.7 pg (26-34); Mean Corpuscular Volume 86.1 fl (80-100); Mean Platelet Volume 9.4 fl (7.4-10.4); Platelet Count Result 219 k/mm3 (150-375); Red Blood Count 5.17 M/mm3 (4.6-6.20); Red Cell Distribution Width 12.7 % (11.5-14.5); White Blood Count 8.1 K/mm3 (4.5-10.0)
[2023-12-13 06:43] LABS: Anion Gap 8 mmol/L (4-12); Blood Urea Nitrogen 12 mg/dL (9-20); Calcium 8.3 mg/dL (8.4-10.2); Carbon Dioxide 27 mmol/L (22-30); Chloride 103 mmol/L (98-107); Estimated CRCL calculation 84 ml/min; Estimated Glomerular Filt Rate > 60; Glucose 86 mg/dL (65-110); Magnesium 1.9 mg/dL (1.6-2.3); Potassium 3.9 mmol/L (3.4-5.0); Sodium 138 mmol/L (137-145)
--- NOTE | 2023-12-13 08:08 | PM.IMPN ---
Progress Note: A&P Assessment and Plan (1) Partial small bowel obstruction: Code(s): K56.600 - Partial intestinal obstruction, unspecified as to cause Status: Acute Assessment and Plan: Complaints of abdominal pain, distention, nausea vomiting. Partial small-bowel obstruction observed on imaging. NG tube placed for decompression NPO Normal saline at 125 mL an hour Dilaudid for pain, Zofran for nausea Small-bowel follow-through ordered for today Surgery consult, recs appreciated Plan Feeding: NPO Analgesia: Dilaudid Thromboembolic prophylaxis: On Lovenox Lines: PIV Antibiotics: na Disposition: Home when return of bowel function Advance Care Plan I have confirmed that the patient's Advanced Care Plan is present, code status is documented, or surrogate decision maker is listed in patient medical record.: Yes Medication Reconciliation I have utilized all available resources to obtain, update and review the patients current medications (includes all prescriptions, OTC, herbals, cannabis, and nutritional supplements).: Yes Subjective Date/time seen: 12/13/23 08:08 Interval history: This is a 63-year-old male with history of laparoscopic cholecystectomy and occasional GERD symptoms who presented to the emergency department for evaluation abdominal pain. 12/12: Patient is seen resting in bed in no acute distress. NG tube is clamped he has just come back from his small-bowel follow-through. His abdomen appears distended but he states does not appear larger than his baseline. The abdomen is soft to palpation. He still is having some pain which he describes as cramping . He reports passing flatus this morning. Last bowel movement was 3 days ago. No nausea or vomiting at present. Review of Systems Review of Systems: 12 systems were reviewed and are negative except for as per HPI. All systems reviewed & are unremarkable except as noted in HPI and below Exam Narrative: General: well appearing, appears stated age. HEENT: normocephalic, atraumatic. Mucous membranes moist. EOMI, PERRLA, bilateral sclera anicteric, no conjunctival injection. Neck supple without JVD, lymphadenopathy, or bruit. Respiratory: clear to auscultation bilaterally. No rales/rhonic/wheezes. Cardiovascular: Regular rate and rhythm, normal S1-S2 upon auscultation. No murmurs, rubs, or clicks. PMI is nondisplaced, capillary refill less than 3 second. Abdomen: Soft, round, no pulsatile masses, + distended and mildly tender to palpation. No rebound, no guarding. No CVA tenderness, no hepatosplenomegaly. Bowel sounds present to all four quadrants. No high pitch or tinkling sounds, resonant to percussion. Extremities: No cyanosis, clubbing, or edema present. Pulses are palpable 2/2. Active ROM to all four extremities. Neuro: Alert and orientated x 4. PERRLA. Cranial nerves 2-12 intact without focal deficit. Skin: Warm, dry, and intact, without rash, erythema, or lesion. Lines: PIV, NG Incisions: na Psych: pleasant, cooperative, normal speech, normal affect, no hallucinations, no dysarthria Objective Data Vital Signs Vital Signs: Vital Signs - 24 hr 12/12/23 10:09 12/12/23 12:00 12/12/23 12:15 Temperature 97.9 F Pulse Rate 87 86 Respiratory Rate 19 27 H Blood Pressure 151/90 H Pulse Oximetry 97 95 98 Oxygen Delivery Room Air 12/12/23 12:30 12/12/23 12:45 12/12/23 13:00 Temperature Pulse Rate 78 80 85 Respiratory Rate 22 H 17 11 L Blood Pressure Pulse Oximetry 97 96 97 Oxygen Delivery 12/12/23 13:15 12/12/23 13:30 12/12/23 13:45 Temperature Pulse Rate 84 77 83 Respiratory Rate 13 17 19 Blood Pressure Pulse Oximetry 95 95 92 Oxygen Delivery 12/12/23 13:54 12/12/23 14:37 12/12/23 20:00 Temperature 97.7 F Pulse Rate 84 68 Respiratory Rate 19 18 Blood Pressure 119/80 132/86 Pulse Oximetry 92 98 Oxygen Delivery Room Air 12/12/23 21:44
[2023-12-13] MEDS: ENOXAPARIN 40 MG/0.4 ML SYRINGE SUB-Q (08:25)
--- NOTE | 2023-12-13 09:22 | PM.CNGS ---
Assessment and Plan Assessment and plan (1) Partial small bowel obstruction: Code(s): K56.600 - Partial intestinal obstruction, unspecified as to cause Status: Acute Assessment and Plan: Patient presented with 2-3 days of what sounds like a viral illness or gastroenteritis and developed worsening abdominal pain and distention. CT suggests early versus partial small bowel obstruction with a transition point in the 3rd to 4th portion of the duodenum. His only previous abdominal surgery was a laparoscopic cholecystectomy over 10 years ago, which typically does not cause significant intraabdominal adhesions. This could also be related to gastroenteritis/ileus. He has no peritoneal signs on exam and is clinically improving. His WBC count has normalized and lactic acid was normal on admission. Will continue conservative treatment for now with NG tube decompression, bowel rest, and IV fluids. Water-soluble small bowel follow through was ordered for today to further evaluate the small bowel obstruction. If contrast moves through to the colon without evidence of an obstruction, then we will remove his NG tube and start him on a clear liquid diet. If he has evidence of a high-grade obstruction, then he could require surgical exploration. (2) Obesity (BMI 30-39.9): Code(s): E66.9 - Obesity, unspecified Status: Acute Plan I have discussed the patient's case and plan of care with Dr. Mathew. Thank you for allowing us to see the patient in consultation and we will continue to follow along with you. History of Present Illness Consult details Consult date: 12/13/23 Reason for consult: other (Small-bowel obstruction) Requesting physician: Lennox Jimenez MD Narrative: This is a 63-year-old man who presented to the ER yesterday with complaints of abdominal pain. He was out of town last week for work and had been eating out at restaurants throughout the week. He woke up morning with some generalized abdominal discomfort and developed nausea, vomiting, and diarrhea. He initially thought this was food poisoning. Over the next 2-3 days, his nausea, vomiting, and diarrhea persisted. Over the weekend, his diarrhea and vomiting resolved, but he noticed more generalized abdominal pain with bloating and distention. He had a telehealth visit and was prescribed dicyclomine and ondansetron, which were providing no relief. Due to his persistent symptoms, he presented to the ER for evaluation yesterday. In the ED, his vital signs were stable. [place] [address], lactic acid 1.2. CT scan of the abdomen and pelvis showed likely early or partial small bowel obstruction with a transition point central in the medial left upper quadrant near the junction of the third and fourth portion of the duodenum potentially related to an adhesion. He was admitted in this setting and an NG tube was placed. He is now seen on the medical floor in surgical consultation for small-bowel obstruction. His only previous abdominal surgery was a laparoscopic cholecystectomy in 2009. He denies any previous small-bowel obstructions. This morning, his abdominal pain has resolved and his bloating has improved. He reports flatus this morning. No BM for about 2 days. Review of Systems Review of Systems: All systems reviewed & are unremarkable except as noted in HPI and below PMFSH Past Medical History Medical History (Updated 12/13/23 @ 09:34 by JUANI Romeo) Gastroesophageal reflux disease Hypertension Not currently on medication. Surgical History Surgical History History of breast lump/mass excision History of laparoscopic cholecystectomy History of tonsillectomy Family History Family History Father Cerebrovascular accident Family history of diabetes mellitus in first degree relative Sibling Family history
[2023-12-13 11:36] VITALS: O2SAT 94
[2023-12-13 14:00] VITALS: BP 118/81; PULSE 106; RESP 18; TEMP 36.6; O2SAT 96
[2023-12-13 19:43] VITALS: BP 149/80; PULSE 93; RESP 18; TEMP 37.1; O2SAT 95
[2023-12-14 05:00] VITALS: BP 123/72; PULSE 75; RESP 18; TEMP 36.8; O2SAT 96
[2023-12-14] MEDS: SODIUM CHLORIDE 0.9% IV 1,000 ML 70 ML IV CONT (05:57)
[2023-12-14] MEDS: ENOXAPARIN 40 MG/0.4 ML SYRINGE SUB-Q (08:16)
[2023-12-14 08:20] VITALS: O2SAT 99
--- NOTE | 2023-12-14 09:17 | PM.IMPN ---
Progress Note: A&P Assessment and Plan (1) Partial small bowel obstruction: Code(s): K56.600 - Partial intestinal obstruction, unspecified as to cause Status: Acute Assessment and Plan: Complaints of abdominal pain, distention, nausea vomiting. Partial small-bowel obstruction observed on imaging. NG tube placed for decompression NPO Normal saline at 125 mL an hour Dilaudid for pain, Zofran for nausea Small-bowel follow-through ordered for today Surgery consult, recs appreciated 12/13: Nursing yesterday said surgery was okay with d/c'ing NG tube and starting clears. Received full liquids for breakfast today....Small bowel follow through from yesterday showed persistently dilated small bowel with partial obstruction. 4 BMs charted from yesterday. Plan Feeding: Full liquid---advanced as tolerated Analgesia: Dilaudid Thromboembolic prophylaxis: On Lovenox Lines: PIV Antibiotics: na Disposition: Home when return of bowel function Advance Care Plan I have confirmed that the patient's Advanced Care Plan is present, code status is documented, or surrogate decision maker is listed in patient medical record.: Yes Medication Reconciliation I have utilized all available resources to obtain, update and review the patients current medications (includes all prescriptions, OTC, herbals, cannabis, and nutritional supplements).: Yes Subjective Date/time seen: 12/14/23 09:17 Interval history: This is a 63-year-old male with history of laparoscopic cholecystectomy and occasional GERD symptoms who presented to the emergency department for evaluation abdominal pain. 12/12: Patient is seen resting in bed in no acute distress. NG tube is clamped he has just come back from his small-bowel follow-through. His abdomen appears distended but he states does not appear larger than his baseline. The abdomen is soft to palpation. He still is having some pain which he describes as cramping . He reports passing flatus this morning. Last bowel movement was 3 days ago. No nausea or vomiting at present. Review of Systems Review of Systems: All systems reviewed & are unremarkable except as noted in HPI and below Exam Narrative: General: well appearing, appears stated age. HEENT: normocephalic, atraumatic. Mucous membranes moist. EOMI, PERRLA, bilateral sclera anicteric, no conjunctival injection. Neck supple without JVD, lymphadenopathy, or bruit. Respiratory: clear to auscultation bilaterally. No rales/rhonic/wheezes. Cardiovascular: Regular rate and rhythm, normal S1-S2 upon auscultation. No murmurs, rubs, or clicks. PMI is nondisplaced, capillary refill less than 3 second. Abdomen: Soft, round, no pulsatile masses, + distended and mildly tender to palpation. No rebound, no guarding. No CVA tenderness, no hepatosplenomegaly. Bowel sounds present to all four quadrants. No high pitch or tinkling sounds, resonant to percussion. Extremities: No cyanosis, clubbing, or edema present. Pulses are palpable 2/2. Active ROM to all four extremities. Neuro: Alert and orientated x 4. PERRLA. Cranial nerves 2-12 intact without focal deficit. Skin: Warm, dry, and intact, without rash, erythema, or lesion. Lines: PIV, NG Incisions: na Psych: pleasant, cooperative, normal speech, normal affect, no hallucinations, no dysarthria Objective Data Vital Signs Vital Signs: Vital Signs - 24 hr 12/13/23 11:36 12/13/23 14:00 12/13/23 19:43 Temperature 97.8 F 98.8 F Pulse Rate 106 H 93 Respiratory Rate 18 18 Blood Pressure 118/81 149/80 H Pulse Oximetry 94 96 95 Oxygen Delivery Room Air 12/13/23 20:00 12/14/23 05:00 Temperature 98.3 F Pulse Rate 75 Respiratory Rate 18 Blood Pressure 123/72 Pulse Oximetry 96 Oxygen Delivery Room Air Intake/Output Intake/Output: Intake & Output 12/11/23 12/12/23 12/13/23 12/14/23 23:59 23:59 23:59 23:59 Intake Total 1000 2980 250 Balance 1000 2980 250
[2023-12-14 10:05] LABS: Hematocrit 43.4 % (42.0-52.0); Hemoglobin 14.2 g/dL (14.0-18.0); Mean Corpuscular HGB Conc 32.7 g/dl (32-36); Mean Corpuscular Hemoglobin 27.8 pg (26-34); Mean Corpuscular Volume 84.9 fl (80-100); Mean Platelet Volume 9.9 fl (7.4-10.4); Platelet Count Result 245 k/mm3 (150-375); Red Blood Count 5.11 M/mm3 (4.6-6.20); Red Cell Distribution Width 12.4 % (11.5-14.5); White Blood Count 8.5 K/mm3 (4.5-10.0)
[2023-12-14 10:15] LABS: Alanine Aminotransferase 30 U/L (6-50); Albumin Level 3.8 g/dL (3.5-5.1); Alkaline Phosphatase 77 U/L (38-126); Anion Gap 7 mmol/L (4-12); Aspartate Amino Transferase 22 U/L (17-59); Bilirubin,Total 0.7 mg/dL (0.2-1.3); Blood Urea Nitrogen 11 mg/dL (9-20); Calcium 8.7 mg/dL (8.4-10.2); Carbon Dioxide 28 mmol/L (22-30); Chloride 103 mmol/L (98-107); Estimated CRCL calculation 91 ml/min; Estimated Glomerular Filt Rate > 60; Glucose 123 mg/dL (65-110); Potassium 3.5 mmol/L (3.4-5.0); Sodium 138 mmol/L (137-145)
[2023-12-14 10:16] LABS: Magnesium 1.9 mg/dL (1.6-2.3)
--- NOTE | 2023-12-14 11:09 | PM.PNGS ---
Progress Note: A&P Assessment and Plan (1) Partial small bowel obstruction: Code(s): K56.600 - Partial intestinal obstruction, unspecified as to cause Status: Acute Assessment and Plan: Resolving with conservative management. SBFT suggested partial SBO with normal transit time to the colon. Bowels are moving. Continue to advance diet as tolerated. If he is able to tolerate solid foods this afternoon, then he can be discharged from a surgical standpoint. Follow up only p.r.n.. Plan I have discussed the patient's case and plan of care with Dr. Mathew. Subjective Subjective Date/Time Seen: 12/14/23 11:09 Patient reports: no new complaints, feels better, tolerating liquids well, flatus and bowel movement Interval history: Patient feeling much better today. No abdominal pain, nausea, vomiting, or bloating. He has had innumerable bowel movements since his water-soluble contrast study. Tolerating clear liquids. Exam GI: Inspection: non-distended GI Palp: Yes Soft to palpation, No Tenderness to palpation present (GI), No Guarding due to palpation present (GI) and No Rebound tenderness present Auscultation: normal bowel sounds Objective Data Vital Signs Vital Signs: Vital Signs - 24 hr 12/13/23 11:36 12/13/23 14:00 12/13/23 19:43 Temperature 97.8 F 98.8 F Pulse Rate 106 H 93 Respiratory Rate 18 18 Blood Pressure 118/81 149/80 H Pulse Oximetry 94 96 95 Oxygen Delivery Room Air 12/13/23 20:00 12/14/23 05:00 12/14/23 08:20 Temperature 98.3 F Pulse Rate 75 Respiratory Rate 18 Blood Pressure 123/72 Pulse Oximetry 96 99 Oxygen Delivery Room Air Room Air Intake/Output Intake/Output: Intake & Output 12/11/23 12/12/23 12/13/23 12/14/23 23:59 23:59 23:59 23:59 Intake Total 1000 2980 928 Balance 1000 2980 928 Meds/Results Medications: Active Medications Generic Name Dose Route Start Last Admin Trade Name Freq PRN Reason Stop Dose Admin Enoxaparin Sodium 40 mg 12/13/23 09:00 12/14/23 08:16 Enoxaparin 40 Mg/0.4 Ml Syringe SUB-Q 40 mg DAILY ANTONY Administration Hydromorphone HCl 0.5 mg 12/12/23 12:30 Hydromorphone Hcl Inj (*Crx) 1 Mg/Ml Syr IV PUSH Q4H PRN Pain Rated 7-10 Ondansetron HCl 4 mg 12/12/23 12:30 Ondansetron Inj 4 Mg/2 Ml Vial IV PUSH Q4H PRN Nausea Phenol 1 spray 12/12/23 17:36 12/12/23 17:57 Phenol/Sod Pheno [place] (*Bkc) MUCOUS MEM 1 spray PRN PRN Administration Sore Throat Radiology Results: ITS Impressions Abdomen/Pelvis CT 12/12/23 11:43 IMPRESSION: 1. Likely early or partial small bowel obstruction with transition point central in the medial left upper quadrant near the junction of the third and fourth portion of the duodenum potentially related to an adhesion. Abdomen X-Ray 12/12/23 12:35 IMPRESSION: 1. Nasogastric tube in stomach with distal tip near the gastric pylorus. Could consider withdrawal by 8 cm. 2. Small bowel obstruction. Small Bowel X-Ray 12/13/23 12:07 IMPRESSION: 1. Persistently dilated proximal small bowel with normal transit time of contrast to the colon, consistent with partial obstruction. Labs Labs: Laboratory Results - last 24 hr 12/14/23 09:25 WBC 8.5 RBC 5.11 Hgb 14.2 Hct 43.4 MCV 84.9 MCH 27.8 MCHC 32.7 RDW 12.4 Plt Count 245 MPV 9.9 Sodium 138 Potassium 3.5 Chloride 103 Carbon Dioxide 28 Anion Gap 7 BUN 11 Creatinine 1.00 Estim Creat Clear Calc 91 Estimated GFR > 60 Glucose 123 H Calcium 8.7 Magnesium 1.9 Total Bilirubin 0.7 AST 22 ALT 30 Alkaline Phosphatase 77 Total Protein 7.0 Albumin 3.8
[2023-12-14 14:00] VITALS: BP 110/70; PULSE 79; RESP 17; TEMP 36.8; O2SAT 96
--- NOTE | 2023-12-14 14:12 | PM.DS ---
DS: Admitting Diagnosis Discharge Date 12/13 Admitting Diagnosis abdominal pain DS: Discharge Diagnosis Discharge Diagnosis (1) Partial small bowel obstruction: Code(s): K56.600 - Partial intestinal obstruction, unspecified as to cause Status: Acute Assessment and Plan: Complaints of abdominal pain, distention, nausea vomiting. Partial small-bowel obstruction observed on imaging. NG tube placed for decompression NPO Normal saline at 125 mL an hour Dilaudid for pain, Zofran for nausea Small-bowel follow-through ordered for today Surgery consult, recs appreciated DS: Summary Hospital Course Reason for hospitalization: Partial small-bowel obstruction Hospital Course: This is a 63-year-old gentleman with a past medical history of laparoscopic cholecystectomy and occasional GERD who presented with abdominal pain. Imaging showed a partial small bowel obstruction for which an NG tube was placed in surgery was consulted. He had a small-bowel follow-through which showed normal transit through the small bowel. Patient was able to have a bowel movement and tolerated diet without recurrent nausea, vomiting, or abdominal pain. Time Spent with Patient Time attestation: Total time spent providing and/or coordinating discharge services: 66 Exam Narrative: General: well appearing, appears stated age. HEENT: normocephalic, atraumatic. Mucous membranes moist. EOMI, PERRLA, bilateral sclera anicteric, no conjunctival injection. Neck supple without JVD, lymphadenopathy, or bruit. Respiratory: clear to auscultation bilaterally. No rales/rhonic/wheezes. Cardiovascular: Regular rate and rhythm, normal S1-S2 upon auscultation. No murmurs, rubs, or clicks. PMI is nondisplaced, capillary refill less than 3 second. Abdomen: Soft, round, no pulsatile masses, + distended and mildly tender to palpation. No rebound, no guarding. No CVA tenderness, no hepatosplenomegaly. Bowel sounds present to all four quadrants. No high pitch or tinkling sounds, resonant to percussion. Extremities: No cyanosis, clubbing, or edema present. Pulses are palpable 2/2. Active ROM to all four extremities. Neuro: Alert and orientated x 4. PERRLA. Cranial nerves 2-12 intact without focal deficit. Skin: Warm, dry, and intact, without rash, erythema, or lesion. Lines: PIV, NG Incisions: na Psych: pleasant, cooperative, normal speech, normal affect, no hallucinations, no dysarthria DS: Data Data Completed and Pending Labs on day of discharge: Labs from last 24 hours 12/14/23 09:25 WBC 8.5 RBC 5.11 Hgb 14.2 Hct 43.4 MCV 84.9 MCH 27.8 MCHC 32.7 RDW 12.4 Plt Count 245 MPV 9.9 Sodium 138 Potassium 3.5 Chloride 103 Carbon Dioxide 28 Anion Gap 7 BUN 11 Creatinine 1.00 Estim Creat Clear Calc 91 Estimated GFR > 60 Glucose 123 H Calcium 8.7 Magnesium 1.9 Total Bilirubin 0.7 AST 22 ALT 30 Alkaline Phosphatase 77 Total Protein 7.0 Albumin 3.8 Discharge Plan Discharge Attending physician on discharge: George Kohli Consulting providers: Julio Mathew Discharging Clinician: Dora Gardiner Anticipated Discharge Date/Time: 12/14/23 14:20 Patient Disposition: Home, Self-Care Activity: may shower Diet: low fiber Discharge Instructions: Your admitted and found have a partial small-bowel obstruction. This is likely from a recent viral gastroenteritis. Recommend following a low-fiber diet for the next few days until your bowel movements have returned to normal and her abdominal distention is resolved. Please continue to eat small, frequent meals, chewing your food completely and remaining upright when eating and drinking. Should you have recurrent abdominal pain, nausea, vomiting, or inability to pass gas or stool please report to be re-evaluated. You follow-up with the primary care provider in 1-2 weeks given his hospitalization Patient Instructions: Antibiotic Form Sheldon
== END 2023-12-14 15:05 | disposition home or self-care (01) | DRG 390 ==
LOC: ANHED 10:32 → ANH2MED 13:23
PROVIDERS: Physician Assistant; Admitting Provider Internal Medicine; Emergency Provider Emergency Medicine; PCP Internal Medicine; Visit Provider Nurse Practitioner Acute Care
DX: K56.600 Partial intestinal obstruction, unspecified as to cause (principal); K21.9 Gastro-esophageal reflux disease without esophagitis; E66.9 Obesity, unspecified; I10 Essential (primary) hypertension; Z68.37 Body mass index [BMI] 37.0-37.9, adult; Z90.49 Acquired absence of other specified parts of digestive tract; Z87.891 Personal history of nicotine dependence
CPT/HCPCS: 36415; 74177; 74250; 80048; 80053; 81001; 83605; 83690; 83735; 85025; 85027; 85610; 85730; 93005; 96361; 96374; 96375; 99285; A9270; G0378; J1170; J1650; J2405; J7030; Q9967

== ENCOUNTER 2024-07-24 15:51 | Emergency (ER) | payer OTHER, SELFPAY ==
[2024-07-24 16:44] VITALS: BP 116/73; PULSE 63; RESP 16; TEMP 36.1; O2SAT 97
--- NOTE | 2024-07-24 17:55 | ED_ITS ---
HPI - Eye Problem General Chief complaint: Eye Problems Stated complaint: Eye Infection Time Seen by Provider: 07/24/24 17:40 Source: patient, RN notes reviewed and old records reviewed Mode of arrival: ambulatory Limitations: no limitations History of Present Illness HPI Narrative: 64 year old male who presents to [facility] care with complaints of burning and crusting to the inner aspect of his right eye for the past week especially in morning. Patient denies any visual changes or any sharp pain to his right eye. Patient reports that his right eye feels irritated. No acute redness of eye or of conjunctiva. MD chief complaint: other (right eye burning and crusting inner aspect of eye) Onset (ago): week(s) (1) Location: right eye Severity: mild Treatments Prior to Arrival: none Related Data Home Medications ?Medication ?Instructions ?Recorded ?Confirmed ?Last Taken ?Type aspirin 81 mg tablet,delayed 81 mg PO DAILY 05/08/24 07/24/24 Unknown History release (Adult Low Dose Aspirin) atorvastatin 10 mg tablet (Lipitor) 10 mg PO DAILY 07/13/24 07/24/24 Unknown History Allergies Allergy/AdvReac Type Severity Reaction Status Date / Time Sulfa (Sulfonamide Allergy Mild Hives Verified 07/24/24 16:49 Antibiotics) sulfanilamide Allergy Mild Hives Verified 07/24/24 16:49 Review of Systems Review of Systems: CONSTITUTIONAL: Denies fever, chills, or sweats. EYES: Denies visual changes. Reports , irritation, discharge.which is clear and crusting to the inner aspect of his right eye, denies any sharp pain to eye ENT: Denies rhinorrhea, congestion, sore throat, or otalgia CARDIOVASCULAR: Denies chest pain, palpitations, or edema RESPIRATORY: Denies cough or dyspnea. SKIN: Denies rash or itching. NEUROLOGIC: Denies headache All systems reviewed & are unremarkable except as noted in HPI and below PMFSH Past Medical History Medical History Diabetes mellitus Hyperlipidemia Gastroesophageal reflux disease Hypertension Not currently on medication. Surgical History Surgical History History of breast lump/mass excision History of laparoscopic cholecystectomy History of tonsillectomy Family History Family History Father Cerebrovascular accident Family history of diabetes mellitus in first degree relative Sibling Family history of diabetes mellitus in first degree relative Mother Cancer Social History Social History Social History: Surrogate medical decision maker: Bailey Edwards, spouse. Code status: Full code. Smoking status: Former smoker Alcohol intake: current Drinks per week: 2 Substance use type: does not use Do You Feel Safe in your Home?: Yes Lack of Transportation: No Lack of Food: Never True Current Housing: I Have Housing Concerned About Future Housing: No Difficulty Paying Gas/Electric Bills: No Difficulty Paying for Meds: No Currently Unemployed: No Education: Trade/Vocational Certificate Difficulty w/ Childcare or Family Care: No Spiritual care concerns: No Comments At time of signature, agree with nursing past medical, surgical, social and family history. There is no relevant family history pertinent to the presenting complaint Exam Narrative: GENERAL: Well-appearing, well-nourished, and in no acute distress. HEAD: Normocephalic, atraumatic. EYES: PERRLA and EOMI. Upper and lower eyelids unremarkable. No periorbital cellulitis noted. Sclera and conjunctivae are clear, denies any visual changes reports crusting to inner canthus of right eye, clear drainage. ENT: Nares clear, no rhinorrhea or epistaxis. Mucous membranes moist. NECK: Supple.no lymphadenopathy CHEST: Clear to auscultation. No respiratory distress. no cough noted SAO2 97% o n room air HEART: Regular rate and rhythm. No murmur heard. Normal peripheral pulses. SKIN: Warm, dry, no rash. NEURO: No focal deficits. Alert and oriented x3. Course Course Emergency Course: Patient is aware of diagnosis, understands and agrees to treatment plan. Anticipatory guidance given. Patient agrees to follow-up as directed and is aware of reasons to seek care at the emergency department. Portions of this record may have been created with voice recognition software Level of Care: Express Care Visit Vital Signs Vital signs: Vital Signs Temperature 36.1 C L 07/24/24 16:44 Pulse Rate 63 07/24/24 16:44 Respiratory Rate 16 07/24/24 16:44 Blood Pressure 116/73 07/24/24 16:44 Pulse Oximetry 97 07/24/24 16:44 Temperature 36.1 C L 07/24/24 16:44 Pulse Rate 63 07/24/24 16:44 Respiratory Rate 16 07/24/24 16:44 Blood Pressure 116/73 07/24/24 16:44 Pulse Oximetry 97 07/24/24 16:44 Reviewed MDM - Eye Problem MDM Narrative Medical decision making narrative: Consideration of the following conditions may be warranted for the presenting problem, they are not final diagnoses: Bacterial conjunctivitis, allergic conjunctivitis, viral conjunctivitis, foreign body, blepharitis, chalazion, hordeolum, corneal abrasion.? Exam findings show no acute concerns or changes; patient is non-toxic appearing and is in no distress.? Patient is appropriate for outpatient treatment and follow-up. Differential Diagnosis Differential diagnosis: Likely conjunctivitis and other (right eye crusting inner canthus, right eye infection) Medical Records Attestation: I reviewed the patient's medical records. Critical Care Time Critical Care Time Critical Care Time: No Discharge Plan Discharge Clinical Impression: Eye infection Qualifiers: Laterality: right Qualified Code(s): H44.001 - Unspecified purulent endophthalmitis, right eye Conjunctivitis Qualifiers: Conjunctivitis type: unspecified Laterality: right Qualified Code(s): H10.9 - Unspecified conjunctivitis Patient Disposition: Home, Self-Care Condition: Stable Instructions: Antibiotic Form, Conjunctivitis (ED) Additional Instructions: Cold compresses to the eyes for comfort May need warm compresses to remove debris in the morning When cleaning the eyes used a washcloth in one direction then change washcloths or use a cotton ball in one direction and then his cotton balls Eyedrops as directed--may be more soothing if left in the refrigerator Do not share medicine--do not touch the eye with the medicine Tylenol or ibuprofen for pain Avoid screen time--television, computer, tablet or phone. Also no reading or driving Follow-up with PCP or auto battery builder as directed if no improvement in 48 hours Patient Language: B[place] Prescriptions: New ofloxacin 0.3 % drops See Rx Instructions .ROUTE .COMPLEX Qty: 10 0RF Rx Instructions: put 1-2 drps into affected eye(s) every 2-4 h x 2 days, then 1-2 drps 4 times/day days 3-7 No Action atorvastatin [Lipitor] 10 mg tablet 10 mg PO DAILY aspirin [Adult Low Dose Aspirin] 81 mg tablet,delayed release (DR/EC) 81 mg PO DAILY Follow-up/Referrals: Francois Zimmer DO [Primary Care Provider] - Time of Disposition: 17:59 Quality [place] Scale Eyes: Open Verbal: Oriented and Alert Motor: Follows Commands [place] Total Score: 15
== END 2024-07-24 18:09 | disposition home or self-care (01) ==
PROVIDERS: Emergency Provider Registered Nurse; PCP Internal Medicine
DX: H44.001 Unspecified purulent endophthalmitis, right eye (principal); H10.9 Unspecified conjunctivitis; Z79.82 Long term (current) use of aspirin; E11.9 Type 2 diabetes mellitus without complications; E78.5 Hyperlipidemia, unspecified; K21.9 Gastro-esophageal reflux disease without esophagitis; I10 Essential (primary) hypertension; Z87.891 Personal history of nicotine dependence
CPT/HCPCS: 99213; G0463

== ENCOUNTER 2024-09-13 15:23 | Outpatient (CLI) | payer OTHER, SELFPAY ==
--- OUTSIDE RECORDS SUMMARY | 2024-09-13 16:35 | XMS_ITS | Clinical Summary ---
Author Organization [facility] Address [address] [place] [id number] Care Team Providers Care Subcontracts Manager Name Role Phone Unavailable Primary Care Provider Unavailabl e Social History Tobacco Use Types Packs/Day Years Used Date Smoking Tobacco: Never Assessed Sex and Gender Information Value Date Recorded Sex Assigned at Not on file Legal Sex Male 8:00 PM CDT Gender Identity Not on file Sexual Orientation Not on file Plan of Treatment Health Maintenance Due Date Last Done Comments Colorectal Cancer Screening Colonoscopy (10 Years) 1960 Annual Physical 01/24/1963 Hepatitis C 01/24/1978 DTaP, Tdap and Td Vaccines ( 1 - Tdap) 01/24/1979 Zoster Vaccines (1 of 2) 01/24/2010 COVID-19 Vaccine (2023-2 5 season) 2024 Influenza Adult (#1) 2024 RSV Immunization or 60+ Years (1 - 1-dose 75+ series) 01/24/2035 Meningococcal B Vaccine Aged Out No l onger eligible based on patient's age to complete this topic Meningococcal Vaccine Aged Out No senthil jeannette eligible based on patient's age to complete this topic Pneumococcal Vaccine: Pediat rics (0 to 5 Years) and At-Risk Patients (6 to 64 Years) Aged Out No longer eligible b ased on patient's age to complete this topic RSV Immunizations Under 20 Months Aged Out No longer eligible based on patient's age to complete this topic
--- OUTSIDE RECORDS SUMMARY | 2024-09-13 16:35 | XMS_ITS | Clinical Summary ---
Author Organization [facility] Address [address] [place] [address] Care Team Providers Care Face And Fill Packer Name Role Phone Tigre Gardiner MD Primary Care Provider Allergies Active Allergy Reactions Criticality Noted Date Comments Sulfa (Sulfonamide Antibiotics) Headache Reaction: Headache, Medications diazePAM (VALIUM) 5 mg tabletIndicatio ns:Muscle Spasm Take 1 tablet (5 mg total) by mouth every 12 (twelve) hours as needed for muscle spasms 15 tablet 08/06/2022 Active lidocaine (LIDODERM) 5 % Place 1 patch on the skin daily for 15 days Remove & discard patch within 12 hours or as directed by . 15 patch 08/06/2022 Active Active Problems Problem Noted Date Diagnosed Date Chronic fatigue 07/24/2020 Chronic pain of left knee 09/26/2018 Chronic pain of right knee 09/26/2018 Induratio penis plastica 10/24/2008 Immunizations Immunization Administration Dates Next Due Flucelvax Influenza Quad 04/06/2020,03/05/2018,0 07/24/2016 Influenza, Quadrivalent, Spl it, Preservative Free, Intramuscular 03/04/2019,07/10/2017 Surgical History Surgery Date Site/Laterality Comments BREAST LUMPECTOMY Left Breast Lumpectomy - 04/2005 (Added by TW Conv) CHOLECYSTECTOMY 06/14/2009 - 06/13/2010 Medical History Medical History Date Comments Migraine Family History Medical History Relation Name Comments Diabetes Brother 1 No Known Problems Brother 2 No Known Problems Daughter 1 No Known Problems Daughter 2 Diabetes Father Breast cancer Mother Relation Name Status Comments Brother 1 Alive Brother 2 Alive Daughter 1 Alive Daughter 2 Alive Father Mother Alive Social History Tobacco Use Types Packs/Day Years Used Date Smoking Tobacco: Former Cigarettes Q uit: 1986 Smokeless Tobacco: Never Alcohol Use Standard Drinks/Week Comments Not Currently 0 (1 standard drink = 0.6 oz pur e alcohol) PHQ-2 Answer Date Recorded PHQ-2 Total Score (If total score is 3 or more points, staff should administer the PHQ-9) 0 07/24/2020 Personal Safety Answer Date Recorded Getting School Help Needed Denies 06/01 Sex and Gender Information Value Date Recorded Sex Assigned at Not on file Legal Sex Male 2:25 AM DOCTOR OF MEDICINE Gender Identity Not on file Sexual Orientation Not on file Obstetrics History Last Filed Vital Signs Vital Sign Reading Time Taken Comments Blood Pressure 135/84 08/06/2022 9:30 PM DOCTOR OF MEDICINE Pulse 69 08/06/2022 9:30 PM DOCTOR OF MEDICINE Temperature 36.4 C (97.6 F) 08/06/2022 6:27 PM DOCTOR OF MEDICINE Respiratory Rate 20 08/06/2022 9:30 PM DOCTOR OF MEDICINE Oxygen Saturation 95% 08/06/2022 9:30 PM DOCTOR OF MEDICINE Inhaled Oxygen Concentration - - Weight 126.2 kg (278 lb 3.2 oz) 021 11:08 AM DOCTOR OF MEDICINE Height 188 cm (6' 2 ) 07/24/2020 11:08 AM DOCTOR OF MEDICINE Body Mass Index 35.72 07/24/2020 11:08 AM DOCTOR OF MEDICINE Plan of Treatment Health Maintenance Due Date Last Done Comments Hepatitis C Screening 1960 DTaP/Tdap/Td Vaccine (1 - Tdap) 01/24/1971 Hepatitis B Screening 01/24/1978 Regular Well Visit/Exam 18-64 01/24/1978 Zoster Vaccine (1 of 2) 01/24/2010 Depression Screening 07/24/2021 07/24/2020 Prostate Cancer Screening-PSA 07/25/2022 07/25/2020 Influenza Vaccine (#1) 2024 0, 03/04/2019, 03/05/2018, Additional history exists Colon Cancer Screening-Colonoscopy 06/14/2025 06/14/2015 Colon Cancer Screening-CT Colonography Discontinued 06/14/2015 Colon Cancer Screening-DNA Stool Discontinued 06/14/2015 Colon Cancer Screening-FIT Discontinued 06/14/2015 Colon Cancer Screening-Sigmoidoscopy Discontinued 06/14/2015 Pneumococcal vaccine <65 Aged Out No longer eligible based on patient's age to complete this topic Procedures Procedure Name Priority Date/Time Associated Diagnosis Comments PSA SCREEN Routine 07/25/2020 9:08 AM DOCTOR OF MEDICINE Screening for hypothyroidism Screening for hyperlipidemia Screening PSA (prostate specific antigen) Screening for hypertension Fatigue, unspecified type Class 2 obesity with body mass index (BMI) of 35.0 to 35.9 in adult, unspecified obesity type, unspecified whether serious comorbidity present COLONOSCOPY Routine 06/14/2015 from Last 3 Months or Most Recently Relevant to Health Maintenance Results * (ABNORMAL) PSA screen (07/25/2020 9:08 AM DOCTOR OF MEDICINE) [facility] PSA 4.3(H) 0.0 - 4.0 ng/mL [facility] - Comment: Corinne ECLIA methodology. According to the [place] [employer], Serum PSA should decrease and remain at undetectable levels after radical prostatectomy. The AUA defines biochemical recurrence as an initial PSA value 0.2 ng/mL or greater followed by a subsequent confirmatory PSA value 0.2 ng/mL or greater. Values obtained with different assay methods or kits cannot be used interchangeably. Results cannot be interpreted as absolute evidence of the presence or absence of malignant disease. Blood specimen (specimen) 07/25/2020 9:08 AM DOCTOR OF MEDICINE 07/25/2020 Narrative [facility] - 07/26/2020 9:37 AM DOCTOR OF MEDICINE Performed at: - [facility] [id number] Linen Worker: Rick Villalta PhD, Phone: [phone] us Tigre Gardiner MD LAB BLOOD ORDERABLES Final R esult [facility] - 01 * Colonoscopy (06/14/2015) Anatomical Region Laterality Modality Other us Historical Provider ENDOSCOPY PROCEDURES Toma l Result from Last 3 Months or Most Recently Relevant to Health Maintenance Insurance BLUE ACCESS OOS BLUE ACCESS OOS BLUE ACCESS OOS Care Teams Face And Fill Packer Relationship Specialty Start Date End Date Tigre Gardiner MD [address] [place] [address] PCP - General Family Medicine 07/24/20
--- OUTSIDE RECORDS SUMMARY | 2024-09-13 16:35 | XMS_ITS | Referral Summary ---
Author Organization [facility] Address [address] [place] [address] Care Team Providers Care Lean Consultant Name Role Phone Tigre Gardiner MD Primary Care Provider [phone] Allergies Active Allergy Reactions Criticality Noted Date [...] Quadrivalent, Spl it, Preservative Free, Intramuscular 03/04/2019,07/10/2017 Social History Tobacco Use Types Packs/Day Years Used Date Smoking Tobacco: Former Cigarettes Q uit: 1987 Smokeless Tobacco: Never Alcohol Use Standard Drinks/Week [...] on file Legal Sex Male 2:25 AM INSULATOR CUTTER AND FORMER Gender Identity Not on file Sexual Orientation Not on file Last Filed Vital Signs Vital Sign Reading Time Taken Comments Blood Pressure 135/84 08/06/2022 9:30 PM INSULATOR CUTTER AND FORMER Pulse 69 08/06/2022 9:30 PM INSULATOR CUTTER AND FORMER Temperature 36.4 C (97.6 F) 08/06/2022 6:27 PM INSULATOR CUTTER AND FORMER Respiratory Rate 20 08/06/2022 9:30 PM INSULATOR CUTTER AND FORMER Oxygen Saturation 95% 08/06/2022 9:30 PM INSULATOR CUTTER AND FORMER Inhaled Oxygen Concentration - - Weight 126.2 kg (278 lb 3.2 oz) 021 11:08 AM INSULATOR CUTTER AND FORMER Height 188 cm (6' 2 ) 07/24/2020 11:08 AM INSULATOR CUTTER AND FORMER Body Mass Index 35.72 07/24/2020 11:08 AM INSULATOR CUTTER AND FORMER Plan of Treatment Not on file Procedures Procedure Name Priority Date/Time Associated Diagnosis Comments PSA SCREEN Routine 07/25/2020 9:08 AM INSULATOR CUTTER AND FORMER Screening for hypothyroidism Screening for hyperlipidemia Screening PSA (prostate specific antigen) Screening for hypertension Fatigue, unspecified type Class 2 obesity with body mass index (BMI) of 35.0 to 35.9 in adult, unspecified obesity type, unspecified whether serious comorbidity present COLONOSCOPY Routine 06/14/2015 from Last 3 Months or Most Recently Relevant to Health Maintenance Results * (ABNORMAL) PSA screen (07/25/2020 9:08 AM INSULATOR CUTTER AND FORMER) PSA 4.3(H) 0.0 - 4.0 ng/mL [facility] - 01 Comment: Corinne ECLIA methodology. According to the [place] [employer], Serum PSA should decrease and [...] disease. Blood specimen (specimen) 07/25/2020 9:08 AM INSULATOR CUTTER AND FORMER 07/25/2020 Narrative [facility] - 07/26/2020 9:37 AM INSULATOR CUTTER AND FORMER Performed at: [facility] [address] [id number] Compliance Director: Rick Villalta PhD, Phone: [phone] us Tigre Gardiner MD LAB BLOOD ORDERABLES Final R esult [facility] - 01 * Colonoscopy (06/14/2015) Anatomical Region Laterality Modality Other us Historical Provider ENDOSCOPY PROCEDURES Toma l Result from Last 3 Months or Most Recently Relevant to Health Maintenance Insurance Content [employer] OOS BLUE ACCESS OOS Care Teams Lean Consultant Relationship Specialty Start Date End Date Tigre Gardiner MD [address] [facility] [address] [address] PCP - General Family Medicine 07/24/20
--- OUTSIDE RECORDS SUMMARY | 2024-09-13 16:35 | XMS_ITS | Encounter Summary ---
Author Organization [facility] Address [address] [place] [address] Care Team Providers Care Chronograph Operator Name Role Phone Unavailable Primary Care Provider Unavailabl e Encounter Details Date Type Department Care Team (Late st Contact Info) Description 04/16/2006 Outpatient Historical [facility] Nikita Duncan [place] [facility] [place] [address] Er, Authorized P NO ADDRESS ON FILE Unspecified Chest Pain (Primary Dx) Social History Tobacco Use Types Packs/Day Years Used Date Smoking Tobacco: Never Assessed Sex and Gender Information Value Date Recorded Sex Assigned at Not on file Legal Sex Male 3:16 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 LIFE 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 Gender Identity Not on file Sexual Orientation Not on file documented as of this encounter Plan of Treatment Not on file documented as of this encounter Procedures Procedure Name Priority Date/Time Associated Diagnosis Comments CBC WITH DIFFERENTIAL Routine 04/16/2006 11:01 AM DIRECTOR LIFE INSURANCE CBC WITH DIFFERENTIAL Routine 04/16/2006 11:01 AM DIRECTOR LIFE INSURANCE documented in this encounter Results * (ABNORMAL) CBC WITH DIFFERENTIAL (04/16/2006 11:01 AM DIRECTOR LIFE INSURANCE) NEUTROPHILS 78(H) 45 - 70 % INTERFAC E SYSTEM LYMPHOCYTES 15(L) 16 - 45 % INTERFAC E SYSTEM MONOCYTES 6 3 - 13 % INTERFACE SYSTEM EOSINOPHILS 1 0 - 7 % INTERFAC E SYSTEM BASOPHILS 1 0 - 2 % INTERFACE SYSTEM NEUTROPHIL ABSOLUTE 6.68 1.90 - 7.00 K/uL INTERFACE SYSTEM LYMPHOCYTE ABSOLUTE 1.26 0.70 - 4.50 K/uL INTERFACE SYSTEM MONOCYTE ABSOLUTE 0.49 0.10 - 1.30 K/uL INTERFACE SYSTEM EOSINOPHIL ABSOLUTE 0.09 0.00 - 0.70 K/uL INTERFACE SYSTEM BASOPHILS ABSOLUTE 0.06 0.00 - 0.20 K/uL INTERFACE SYSTEM 04/16/2006 11:0 1 AM DIRECTOR LIFE INSURANCE Nikita Sandoval MD HEMATOLOGY ORDERABLES Final Re sult INTERFACE SYSTEM Refer to clinic/hospital department * (ABNORMAL) CBC WITH DIFFERENTIAL (04/16/2006 11:01 AM DIRECTOR LIFE INSURANCE) WBC 8.6 4.0 - 9.8 K/uL INTERFACE SYSTEM RBC 5.62(H) 4.50 - 5.40 M/uL INTERFACE SYSTEM HEMOGLOBIN 16.3 13.6 - 16.5 g/dL INTERFACE SYSTEM HEMATOCRIT 45.5 40.0 - 48.0 % INTERFACE SYSTEM MCV 81.0(L) 82.0 - 99.0 fL INTERFACE SYSTEM MCH 29.0 27.2 - 32.6 pg INTERFACE SYSTEM MCHC 35.8(H) 31.5 - 35.5 % INTERFACE SYSTEM RDW 12.7 11.5 - 14.5 % INTERFACE SYSTEM RDW-STDEV 37.8 37.1 - 48.7 fL INTERFACE SYSTEM PLATELETS 259 140 - 350 K/uL INTERFACE SYSTEM MPV 10.2 9.3 - 12.4 fL INTERFACE SYSTEM 04/16/2006 11:0 1 AM DIRECTOR LIFE INSURANCE Nikita Sandoval MD HEMATOLOGY ORDERABLES Final Re sult INTERFACE SYSTEM Refer to clinic/hospital department documented in this encounter Visit Diagnoses Diagnosis Chest pain, unspecified- Primary documented in this encounter
--- OUTSIDE RECORDS SUMMARY | 2024-09-13 16:35 | XMS_ITS | CONTINUITY OF CARE DOCUMENT ---
Author Name emilie aprilskylar Address Unknown Organization [facility] Address [address] [place] [address] Phone [phone] Care Team Providers Care Order Analyst Name Role Phone Chandu Echeverria MD Unavailable [phone] DOTTY MENDOSA DO Unavailable DOTTY MENDOSA DO Unavailable PROBLEMS Condition Status Date Provider Notes Chest pain--stress nuc nl, e cho ef nl, mild LVH, 05/2024 active Abimael Ahmedzayung Shortness of breath active Abimael Ahmedzai ÓSCAR--severe active Abimael Ahsirenazayung Family history of CVA active Abimael Nascimento Atherosclerosis, coronary, seen on CT active 9 Abimael Nascimento Cardiology examination active Abimael Nascimento ENCOUNTERS Date Type Provider Location Encounter Diag nosis - In-person encounter Office Visit Chandu Echeverria MD [facility] Office ÓSCAR--severeChest pain--stress nuc nl, echo ef nl, mild LVH, 05/2024 - In-person encounter Office Visit Chandu Echeverria MD [place] [facility] Cardiology examinationAtheroscl erosis, coronary, seen on CTFamily history of CVAOSA--severeShortn ess of breathChest pain--stress nuc nl, echo ef nl, mild LVH, 05/2024 VITAL SIGNS Date Observation Value Provider Body Mass Index (Ratio) 36.21 kg/m2 Francois Echeverria MD blood pressure, diastolic 77 mm[Hg] Evelin anne [facility] blood pressure, systolic 134 mm[Hg] Carolina atkins [facility] oxygen saturation, oximetry 96 % Mally [facility] pulse rate 60 /min Mally [facility] weight E&M 267 [lb_av] Mally [facility] height E&M 72 [in_i] [facility] (Ratio) 38.02 kg/m2 Francois Echeverria MD weight E&M 280.4 [lb_av] [facility] blood pressure, diastolic 85 mm[Hg] [facility] blood pressure, systolic 122 mm[Hg] Aminata ytler [place] blood pressure, cuff size regular [facility] oxygen saturation, oximetry 94 % [facility] pulse rate 79 /min [facility] height E&M 72 [in_i] [facility] ALLERGIES Allergy Name Onset Date Reaction Criticality Status SULFA High Criticality active RESULTS Date Observation Value Provider Reference Range Interpretation Location 1 c-reactive protein, quantitative, serum 4.99 mg/L [facility] 0.00-3.00 High 1 pro brain natriuretic peptide <36 pg/mL [facility] 0-210 1 hemoglobin A1C, blood, as % of total hemoglobin 6.5 % [facility] 4.8-5.6 High 1 lipoprotein, beta, serum, point, quantitative, calculated 95 mg/dL [facility] 0-99 1 HDL cholesterol, serum 39 mg/dL [facility] >39 Low 1 triglyceride, serum, random 67 mg/dL [facility] 0-149 1 cholesterol, serum 147 mg/dL [facility] 651-068 3477/11/0 1 alanine aminotransferase (SGPT), serum 23 1/L [facility] 0-44 1 aspartate aminotransferase (SGOT), serum 18 1/L [facility] 0-40 1 alkaline phosphatase, serum 94 1/L [facility] 44-121 1 bilirubin, serum, total 0.4 mg/dL [facility] 0.0-1.2 1 globulin, serum 2.3 [facility] 1.5-4.5 1 albumin, serum 4.2 g/dL [facility] 3.9-4.9 1 protein, total, serum 6.5 g/dL [facility] 6.0-8.5 1 calcium, serum 9.2 mg/dL [facility] 8.6-10.2 1 carbon dioxide, venous blood 23 mmol/L [facility] 20-29 1 chloride, serum 105 mmol/L [facility] 96-106 1 potassium, serum 4.5 mmol/L [facility] 3.5-5.2 1 sodium, serum 141 mmol/L [facility] 352-170 3029/11/0 1 urea nitrogen/creatinine ratio, serum 10 [facility] 10-24 1 creatinine, serum 1.18 mg/dL [facility] 0.76-1.27 1 urea nitrogen, blood 12 mg/dL [facility] 8-27 1 blood glucose, random 98 mg/dL [facility] 70-99 1 basophil count, absolute 0.1 x10E3/uL [facility] 0.0-0.2 1 Eosinophil Absolute Count 0.2 X10E3/UL [facility] 0.0-0.4 1 monocyte count, blood, automated 0.7 X10E3/UL [facility] 0.1-0.9 1 lymphocyte count, blood, automated 1.2 X10E3/UL [facility] 0.7-3.1 1 Absolute Neutrophils 5.0 X10E3/UL [facility] 1.4-7.0 1 basophils as percent of blood leukocytes 1 % [facility] Not Estab. 1 eosinophils as percent of blood leukocytes 3 % [facility] Not Estab. 1 monocytes as percent of blood leukocytes 9 % [facility] Not Estab. 1 lymphocytes as percent of blood leukocytes 17 % [facility] Not Estab. 1 neutrophils as percent of blood leukocytes 70 % [facility] Not Estab. 1 platelet count 250 X10E3/UL [facility] 139-358 4431/11/0 1 red blood cell distribution width 13.4 % [facility] 11.6-15.4 1 mean corpuscular hemoglobin concentration, RBC 32.9 G/DL [facility] 31.5-35.7 1 mean corpuscular hemoglobin, RBC 27.6 pg [facility] 26.6-33.0 1 mean corpuscular volume, RBC 84 fL [facility] 79-97 1 hematocrit, blood 48.6 % [facility] 37.5-51.0 1 hemoglobin, blood 16.0 g/dL [facility] 13.0-17.7 1 erythrocyte (RBC) count 5.79 X10E6/UL [facility] 4.14-5.80 1 leukocyte count, blood 7.1 X10E3/UL [facility] 3.4-10.8 HISTORY OF MEDICATION USE Medication Status Instructions Dates Provider Indications Com ments atorvastatin 10 mg tablet active TAKE 1 TABLET BY MOUTH EVERY DAY Abimael Nascimento aspirin 81 mg tablet,delayed release (DR/EC) active Abimael Nascimento FUNCTIONAL STATUS Date Observation Value Provider HRA, CV Assess/Plan, Angina (inactive) Management Plan continue current therapy Abimael Nascimento INSURANCE PROVIDERS Payer name Policy type / Coverage type [place] [employer] party ID [facility] Commercial insurance company [facility] [id number] ADVANCE DIRECTIVES Name Date DISCUSSED - NO DECISION MADE TREATMENT PLAN Date Name Performer Cardiology: H is updated medication list for this problem includes: Aspirin 81 Mg Tablet,delayed Release (dr/ec) (Aspirin) Chandu Echeverria MD Cardiology: H is updated medication list for this problem includes: Aspirin 81 Mg Tablet,delayed Release (dr/ec) (Aspirin) Chandu Echeverria MD Cardiology: H is updated medication list for this problem includes: Aspirin 81 Mg Tablet,delayed Release (dr/ec) (Aspirin) Chandu Echeverria MD Cardiology:This visi t has been a part of the consistent, comprehensive, and ongoing management of the chronic medical condition(s) listed above for the patient. Chandu Echeverria MD Cardiology: O rders: E KG (CPT-88370) S [facility] Study Home (CPT-69825) C omplete Echo (21115) S tress Exercise Cardiolite (CPT-07840) C OMPREHENSIVE METABOLIC PANEL, W/EGFR (55417) L IPID PANEL (7600) H EMOGLOBIN A1c (496) C BC (INCLUDES DIFF/PLT) (6399) L ipoprotein (a) (712120) P ROBNP, N TERMINAL (38484) C RP, high sensitivity (12300) His updated medication list for this problem includes: Aspirin 81 Mg Tablet,delayed Release (dr/ec) (Aspirin) Abimael Nascimento Cardiology: O rders: C omplete Echo (07033) S tress Exercise Cardiolite (CPT-78646) C OMPREHENSIVE METABOLIC PANEL, W/EGFR (94119) L IPID PANEL (7600) H EMOGLOBIN A1c (496) C BC (INCLUDES DIFF/PLT) (6399) L ipoprotein (a) (028322) P ROBNP, N TERMINAL (31808) C RP, high sensitivity (98957) Abimael Nascimento Cardiology: O rders: C omplete Echo (48158) S tress Exercise Cardiolite (CPT-99168) C OMPREHENSIVE METABOLIC PANEL, W/EGFR (56668) L IPID PANEL (7600) H EMOGLOBIN A1c (496) C BC (INCLUDES DIFF/PLT) (6399) L ipoprotein (a) (936747) P ROBNP, N TERMINAL (68337) C RP, high sensitivity (76035) Abimael Ahmedzai Cardiology: O rders: S lee Study Home (CPT-26305) C OMPREHENSIVE METABOLIC PANEL, W/EGFR (30962) L IPID PANEL (7600) H EMOGLOBIN A1c (496) C BC (INCLUDES DIFF/PLT) (6399) L ipoprotein (a) (008869) P ROBNP, N TERMINAL (02313) C RP, high sensitivity (19418) Abimael Ahmedzai Cardiology: O rders: E KG (CPT-21476) C OMPREHENSIVE METABOLIC PANEL, W/EGFR (12129) L IPID PANEL (7600) H EMOGLOBIN A1c (496) C BC (INCLUDES DIFF/PLT) (6399) L ipoprotein (a) (922651) P ROBNP, N TERMINAL (38553) C RP, high sensitivity (60457) Abimael Ahmedzai Date Name CRP, high sensitivit y PROBNP, N TERMINAL Lipoprotein (a) CBC (INCLUDES DIFF/P LT) HEMOGLOBIN A1c LIPID PANEL COMPREHENSIVE METABO LIC PANEL, W/EGFR Stress Exercise Card iolite Complete Echo Sleep Study Home HISTORY OF PROCEDURES Procedure Date Procedure Name Provider Procedure Notes S tatus Complex e/m visit add on Chandu Echeverria MD completed EKG Chandu Echeverria MD completed
--- OUTSIDE RECORDS SUMMARY | 2024-09-13 16:35 | XMS_ITS | Encounter Summary ---
Author Organization [facility] Address [address] [place] [address] Care Team Providers Care Fish Stringer Assembler Name Role Phone Unavailable Primary Care Provider Unavailabl e Encounter Details Date Type Department Care Team (Late st Contact Info) Description 04/16/2006 Outpatient Historical [facility] Support [facility]. ([facility]) [address] 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
--- OUTSIDE RECORDS SUMMARY | 2024-09-13 16:35 | XMS_ITS | Encounter Summary ---
Author Organization [facility] Address [address] [place] [address] Care Team Providers Care Aircraft Mechanic Armament Name Role Phone Unavailable Primary Care Provider Unavailabl e Encounter Details Date Type Department Care Team (Late st Contact Info) Description 04/16/2006 Outpatient Historical [facility] Support [facility]. ([facility]) [address] 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
--- OUTSIDE RECORDS SUMMARY | 2024-09-13 16:35 | XMS_ITS | Clinical Summary ---
Author Organization [facility] Address [address] Attn: Epic Prelude ADT [place] [address] Care Team Providers Care Personnel Recruiter Name Role Phone Unavailable Primary Care Provider Unavailabl e Medications citalopram (CELEXA) 20 mg Oral tablet Take 1 Tab by mouth daily at bedtime. 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
--- OUTSIDE RECORDS SUMMARY | 2024-09-13 16:35 | XMS_ITS | Encounter Summary ---
Author Organization [facility] Address [address] [facility] [place] [address] Care Team Providers Care Copy Holder Name Role Phone Unavailable Primary Care Provider Unavailabl e Encounter Details Date Type Department Care Team (Late st Contact Info) Description 02/03/2018 Lab Requisition [facility] DermPath Lab [address] [place] [id number] Evan Rand MD [address] [place] [address] Social History Tobacco Use Types Packs/Day Years Used Date Smoking Tobacco: Never Assessed Sex and Gender Information Value Date Recorded Sex Assigned at Not on file Gender Identity Not on file Sexual Orientation Not on file documented as of this encounter Plan of Treatment Not on file documented as of this encounter Procedures Procedure Name Priority Date/Time Associated Diagnosis Comments DERMATOPATHOLOGY Routine 02/02/2018 12:0 0 AM CDT documented in this encounter Results * DERMATOPATHOLOGY (02/02/2018 12:00 AM CDT) Case Report Dermatopathology Report Case: [id number] Authorizing Provider: Evan Rand MD Collected: 02/02/2018 12:00 AM Pathologist: Soni Miranda MD Received: 02/03/2018 12:29 PM Specimens: A) - Skin, left buttock B) - Skin, right sup buttock 8 5:51 PM CDT DERMATOPATHOLOGY LABORATORY Final Diagnosis Specimen A. SKIN, left buttock: CHRONIC SPONGIOTIC DERMATITIS (L30.8) (see microscopic description and comment) Specimen B. SKIN, right sup buttock: CHRONIC SPONGIOTIC DERMATITIS (L30.8) (see microscopic description and comment) 5:51 PM [facility] DERMATOPATHOLOGY LABORATORY Clinical History A-B: R/O eczema, CTCL, other dermatitis. 5:51 PM [facility] DERMATOPATHOLOGY LABORATORY Gross Description Specimen A: Received is one formalin filled container labeled with the patient's name and designated left buttock. The specimen consists of a punch biopsy measuring [id number], bisected. Jar 0. Specimen B: Received is one formalin filled container labeled with the patient's name and designated right sup buttock. The specimen consists of a punch biopsy measuring [id number], bisected. Jar 0. 5:51 PM [facility] DERMATOPATHOLOGY LABORATORY Microscopic Description Specimen A. SKIN, left buttock: Sections show compact keratosis with only very focal parakeratosis. There is slight acanthosis of the epidermis. Rare dyskeratotic keratinocytes are seen in the upper epidermis. Within the dermis there is a perivascular and interstitial predominately lymphocytic infiltrate. Focal lymphocytes are seen along the lower epidermis and only a few lymphocytes are seen within the epidermis. Grocott's methenamine silver (GMS) stain fails to highlight fungal elements in the available sections. The infiltrate is composed of mostly CD3 positive T-cells. The CD3 positive T-cells are a mix of CD4 and CD8 positive cells. Both cell types are seen in the epidermis and the ratio appears overall preserved. COMMENT: The histologic differential diagnosis includes an eczematous dermatitis. If clinical suspicion for mycosis fungoides persists a re-biopsy of sun protect skin that has not been treated for 2 weeks is reccommended as early lesions of mycosis fungoides are challenging histologically. Clinicopathologic correlation is recommended. This case was also reviewed by Dr. Vandana Baltazar who agrees with the diagnosis. Specimen B. SKIN, right sup buttock: Sections show compact keratosis with only very focal parakeratosis. Within the dermis there is a perivascular and interstitial predominately lymphocytic infiltrate. Focal extravasated erythrocytes are seen. Grocott's methenamine silver (GMS) stain fails to highlight fungal elements in the available sections. The infiltrate is composed of mostly CD3 positive T-cells. Only a few T-cells are seen in the epidermis. The CD3 positive T-cells are a mix of CD4 and CD8 positive cells. Both cell types are seen in the epidermis and the ratio appears overall preserved. COMMENT: See comment for Specimen A. 8 5:51 PM CDT DERMATOPATHOLOGY LABORATORY Disclaimer An external and internal positive and negative controls are appropriate for the histochemical, immunohistochemical and immunofluorescence stain(s) in this case (if any), except where stated explicitly. The performance characteristics of the stain(s) cited in this report were developed and its performance characteristic determined by the Dermatopathology Laboratory at [facility]. These tests need not be, and therefore are not, approved by the [place] Food and Drug Administration. The tests are used for clinical purposes. Billing Codes Specimen Charges Stain Charges 00582 23322 1 1 93185 78949 29031 36096 63984 02862 00446 75952 1 1 1 1 1 1 1 1 8 5:51 PM CDT DERMATOPATHOLOGY LABORATORY Embedded Images 8 5:51 PM CDT DERMATOPATHOLOGY LABORATORY Pathology/Cytology TISSUE SPECIMEN FROM SKIN / Unknown 02/02/2018 02/03/2018 12:29 PM CDT Miscellaneous samples (specimen) TISSUE SPECIMEN FROM SKIN / Unknown 02/02/2018 02/03/2018 12:29 PM CDT Evan Rand MD LAB - PATHOLOGY/CYTO LOGY ORDERABLES DERMATOPATHOLOGY LABORATORY [facility] - Department of Dermatology [address] [place] [address], 5th [place] [address], [facility] [phone] documented in this encounter Visit Diagnoses Not on filedocumented in this encounter
--- OUTSIDE RECORDS SUMMARY | 2024-09-13 16:35 | XMS_ITS | Clinical Summary ---
Author Organization [facility] Address [address] [facility] [place] [address] Care Team Providers Care Marketing Production Coordinator Name Role Phone Unavailable Primary Care Provider Unavailabl e Source Comments [facility],non-owned Affiliates and Associated Physician Practices is amultiple site organization consisting of ambulatory clinics and hospital sitesin [place], [place], [place] and [place]. This disclosure is being madepursuant to the Care Everywhere program and may not contain all information available regarding this patient. Last updated 18.[facility] Allergies Active Allergy Reactions Criticality Noted Date Comments Sulfa Drugs Headache 05/21/2018 Medications Be aware that medications may not be up to date on this document. Always verify current medications with the patient. No known medications Immunizations Name Administration Dates Next Due Covid Pfizer primary monovalent 12+ yr 0.3mL Pur ple cap 10/11/2021 Family History Medical History Relation Name Comments CVA Father Relation Name Status Comments Father Social History Tobacco Use Types Packs/Day Years Used Date Smoking Tobacco: Never Smokeless Tobacco: Never Sex and Gender Information Value Date Recorded Sex Assigned at Not on file Gender Identity Not on file Sexual Orientation Not on file Last Filed Vital Signs Vital Sign Reading Time Taken Comments Blood Pressure 126/70 05/05/2021 11:54 AM FACILITIES OPERATOR Pulse 83 05/05/2021 11:54 AM FACILITIES OPERATOR Temperature 36.6 C (97.8 F) 05/05/2021 11:54 AM FACILITIES OPERATOR Respiratory Rate 16 05/05/2021 11:54 AM FACILITIES OPERATOR Oxygen Saturation 96% 05/05/2021 11:54 AM FACILITIES OPERATOR Inhaled Oxygen Concentration - - Weight 117.9 kg (260 lb) 05/21/2018 2:52 PM FACILITIES OPERATOR Height 182.9 cm (6') 05/21/2018 2:52 PM FACILITIES OPERATOR Body Mass Index 35.26 05/21/2018 2:52 PM FACILITIES OPERATOR Plan of Treatment Health Maintenance Due Date Last Done Comments COLOGUARD (AGES 45-75) - COLON CA SCREENING 1960 COLON MONITORING 1960 COLONOSCOPY - COLON CA SCREENING 1960 CT COLONOGRAPHY - COLON CA SCREENING 1960 Colorectal Cancer Screening 1960 FIT - COLON CA SCREENING 1960 FLEX SIG - COLON CA SCREENING 1960 LIPID TESTING 1960 HIV SCREENING 01/24/1975 HEPATITIS C SCREENING 01/20/1978 DTAP/TDAP/TD VACCINES (1 - Tdap) 01/24/1979 PNEUMOCOCCAL VACCINE 50+ (1 of 1 - PCV) 01/24/2010 ZOSTER VACCINE (1 of 2) 01/24/2010 COVID-19 VACCINE (4 - season) 2024 10/11/2021, 10/19/2020, 10/05/2020 INFLUENZA VACCINE (#1) 2024 , 04/06/2020, 03/04/2019, Additional history exists DEPRESSION SCREENING 06/14/2024 Respiratory Syncytial Virus (RSV) Vaccine Pt: or over 60 yrs (1 - 1-dose 75+ series) 01/24/2035 HEPATITIS B VACCINE Aged Out No longe r eligible based on patient's age to complete this topic HIB VACCINE Aged Out No longer eligi ble based on patient's age to complete this topic HPV VACCINE Aged Out No longer eligi ble based on patient's age to complete this topic MENINGOCOCCAL (Group B) VACCINE SHARED DECISION-MAKING Aged Out No longer eligible based on patient's age to complete this topic MENINGOCOCCAL GROUPS A/C/Y/W VACCINE Aged Out No longer eligible based on patient's age to complete this topic
== END 2024-09-13 15:24 | disposition home or self-care (01) ==
LOC: ANHSURGERY 15:26
PROVIDERS: PCP Internal Medicine; Visit Provider Surgery
DX: K40.90 Unilateral inguinal hernia, without obstruction or gangrene, not specified as recurrent (principal); Z01.818 Encounter for other preprocedural examination
CPT/HCPCS: 36415; 86850; 86900; 86901

== ENCOUNTER 2024-09-21 01:34 | Day surgery (SDC) | payer OTHER, SELFPAY ==
[2024-09-13 08:43] VITALS: BMI 35.3
--- NOTE | 2024-09-13 08:44 | PC.NURSE ---
Report to the Outpatient Waiting Room, entrance under the green pavilion located off [facility], at time _1000_ on date _[id number]_. Planned Procedure Time: _1200_.? Time changes happen often and if your time is changed the preop area will call you the afternoon before. - You and your visitor will be asked to self-screen and do not enter if you have any COVID symptoms. Please call surgeon if you need to reschedule. - A mask is optional within the hospital at this time. Patients may have clear liquids (water, carbonated beverages, clear teas, apple juice) until 3 hours prior to surgery with a maximum of 20 ounces. - No food from midnight until time of surgery and no smoking, or chewing tobacco (or any form of nicotine). No chewing gum, candy or mints. Take only the following medications with a SIP of water on the morning of surgery: __Eye drops DO NOT STOP ANY OF YOUR OTHER PRESCRIPTION MEDICATIONS PRIOR TO SURGERY EXCEPT THE FOLLOWING Hold all vitamins and supplements for 3 days per anesthesiologist. Medications to discontinue per physician Date to take last dose Please no make-up, nail malay, hairspray, perfume, deodorant, or body powder the day of surgery.? No jewelry (including any body piercings) or valuables the day of surgery, leave them at home.? Please take a shower or bath the night before, or the morning of, surgery with an antibacterial soap.? Wear comfortable, loose fitting clothing.? - Jewelry must be removed prior to entering the operating room.? Rings and piercings that are not removed may be cut off. - The hospital will not accept responsibility for valuables.? - Please leave all valuables, including medications, at home the day of surgery. If you are going home after surgery, a licensed trailer driver must drive you home.? - NO public transportation without another adult if you receive anesthesia. - We recommend that an adult stay with you for 24 hours following discharge. - We also recommend that you do not drive, make important decision, drink alcoholic beverages, or take any drugs that were not prescribed by your health care provider for at least 24 hours after your discharge time. Follow any additional instructions given to you from your surgeon. Telephone instructions given to __Bill___and asked if any additional questions and then verbalized understanding. Patient advised to call surgeon office or pre surgery nurse liaison [phone] if any additional questions.
[2024-09-21] VITALS (8 sets, daily range): BP systolic 110–126; BP diastolic 54–84; PULSE 53–70; RESP 12–20; TEMP 36.1–36.6; O2SAT 94–98
--- OUTSIDE RECORDS SUMMARY | 2024-09-21 01:37 | XMS_ITS | Encounter Summary ---
Author Organization [facility] Address [address] [place] [address] Care Team Providers Care Fire Truck Driver Name Role Phone Unavailable Primary Care Provider Unavailabl e Encounter Details Date Type Department Care Team (Late st Contact Info) Description 04/16/2006 Outpatient Historical [facility] Support [facility]. (Adt Cardiology-[facility]) [address] 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
--- OUTSIDE RECORDS SUMMARY | 2024-09-21 01:37 | XMS_ITS | Clinical Summary ---
Author Organization [facility] Address [address] [place] [address] Care Team Providers Care Social Work Coordinator Name Role Phone Tigre Gardiner MD Primary Care Provider [phone] Allergies Active Allergy Reactions Criticality Noted Date [...] on file Legal Sex Male 2:25 AM MEDICAL ASSEMBLER Gender Identity Not on file Sexual Orientation Not on file Obstetrics History Last Filed Vital Signs Vital Sign Reading Time Taken Comments Blood Pressure 135/84 08/06/2022 9:30 PM MEDICAL ASSEMBLER Pulse 69 08/06/2022 9:30 PM MEDICAL ASSEMBLER Temperature 36.4 C (97.6 F) 08/06/2022 6:27 PM MEDICAL ASSEMBLER Respiratory Rate 20 08/06/2022 9:30 PM MEDICAL ASSEMBLER Oxygen Saturation 95% 08/06/2022 9:30 PM MEDICAL ASSEMBLER Inhaled Oxygen Concentration - - Weight 126.2 kg (278 lb 3.2 oz) 021 11:08 AM MEDICAL ASSEMBLER Height 188 cm (6' 2 ) 07/24/2020 11:08 AM MEDICAL ASSEMBLER Body Mass Index 35.72 07/24/2020 11:08 AM MEDICAL ASSEMBLER Plan of Treatment Health Maintenance Due Date [...] Comments PSA SCREEN Routine 07/25/2020 9:08 AM MEDICAL ASSEMBLER Screening for hypothyroidism Screening for hyperlipidemia Screening PSA (prostate specific antigen) Screening for hypertension Fatigue, unspecified type Class 2 obesity with body mass index (BMI) of 35.0 to 35.9 in adult, unspecified obesity type, unspecified whether serious comorbidity present COLONOSCOPY Routine 06/14/2015 from Last 3 Months or Most Recently Relevant to Health Maintenance Results * (ABNORMAL) PSA screen (07/25/2020 9:08 AM MEDICAL ASSEMBLER) [facility] PSA 4.3(H) 0.0 - 4.0 ng/mL [facility] - Comment: Corinne ECLIA methodology. According to the [place] [employer], Serum PSA should decrease and [...] disease. Blood specimen (specimen) 07/25/2020 9:08 AM MEDICAL ASSEMBLER 07/25/2020 Narrative [facility] - 07/26/2020 9:37 AM MEDICAL ASSEMBLER Performed at: - [facility] [id number] Cubing Machine Tender: Rick Villalta PhD, Phone: [phone] us Tigre Gardiner MD LAB BLOOD ORDERABLES Final R esult [facility] - 01 * Colonoscopy (06/14/2015) Anatomical Region Laterality Modality Other us Historical Provider ENDOSCOPY PROCEDURES Toma l Result from Last 3 Months or Most Recently Relevant to Health Maintenance Insurance BLUE ACCESS OOS BLUE ACCESS OOS BLUE ACCESS OOS Care Teams Social Work Coordinator Relationship Specialty Start Date End Date Tigre Gardiner MD [address] [place] [address] PCP - General Family Medicine 07/24/20
--- OUTSIDE RECORDS SUMMARY | 2024-09-21 01:37 | XMS_ITS | Clinical Summary ---
Author Organization [facility] Address [address] [facility] Attn: Epic Prelude ADT [place] [phone] Care Team Providers Care Well Cleaner Name Role Phone Unavailable Primary Care Provider [...] on file Legal Sex Male 3:16 AM NURSES SUPERINTENDENT Gender Identity Not on file Sexual Orientation [...]
--- OUTSIDE RECORDS SUMMARY | 2024-09-21 01:37 | XMS_ITS | Encounter Summary ---
Author Organization [facility] Address [address] [place] [address] Care Team Providers Care Purse Maker Name Role Phone Unavailable Primary Care Provider Unavailabl e Encounter Details Date Type Department Care Team (Late st Contact Info) Description 04/16/2006 Outpatient Historical [facility] Nikita Duncan MD [facility] [place] [address] Er, Authorized P NO ADDRESS ON FILE Unspecified Chest Pain (Primary Dx) Social History Tobacco Use Types Packs/Day Years Used Date Smoking Tobacco: Never Assessed Sex and Gender Information Value Date Recorded Sex Assigned at Not on file Legal Sex Male 3:16 AM ACID DUMPER Gender Identity Not on file Sexual Orientation Not on file documented as of this encounter Plan of Treatment Not on file documented as of this encounter Procedures Procedure Name Priority Date/Time Associated Diagnosis Comments CBC WITH DIFFERENTIAL Routine 04/16/2006 11:01 AM ACID DUMPER CBC WITH DIFFERENTIAL Routine 04/16/2006 11:01 AM ACID DUMPER documented in this encounter Results * (ABNORMAL) CBC WITH DIFFERENTIAL (04/16/2006 11:01 AM ACID DUMPER) NEUTROPHILS 78(H) 45 - 70 % INTERFAC [...] K/uL INTERFACE SYSTEM 04/16/2006 11:0 1 AM ACID DUMPER Nikita Sandoval MD HEMATOLOGY ORDERABLES Final Re sult INTERFACE SYSTEM Refer to clinic/hospital department * (ABNORMAL) CBC WITH DIFFERENTIAL (04/16/2006 11:01 AM ACID DUMPER) WBC 8.6 4.0 - 9.8 K/uL INTERFACE [...] fL INTERFACE SYSTEM 04/16/2006 11:0 1 AM ACID DUMPER Nikita Sandoval MD HEMATOLOGY ORDERABLES Final Re sult INTERFACE SYSTEM Refer to clinic/hospital department documented in this encounter Visit Diagnoses Diagnosis Chest pain, unspecified- Primary documented in this encounter
--- OUTSIDE RECORDS SUMMARY | 2024-09-21 01:37 | XMS_ITS | Referral Summary ---
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 Gender Identity Not on file Sexual Orientation Not on file Last Filed Vital Signs Vital Sign Reading Time Taken Comments Blood Pressure 135/84 08/06/2022 9:30 PM ICE CREAM TRUCK DRIVER Pulse 69 08/06/2022 9:30 PM ICE CREAM TRUCK DRIVER Temperature 36.4 C (97.6 F) 08/06/2022 6:27 PM ICE CREAM TRUCK DRIVER Respiratory Rate 20 08/06/2022 9:30 PM ICE CREAM TRUCK DRIVER Oxygen Saturation 95% 08/06/2022 9:30 PM ICE CREAM TRUCK DRIVER Inhaled Oxygen Concentration - - Weight 126.2 kg (278 lb 3.2 oz) 021 11:08 AM ICE CREAM TRUCK DRIVER Height 188 cm (6' 2 ) 07/24/2020 11:08 AM ICE CREAM TRUCK DRIVER Body Mass Index 35.72 07/24/2020 11:08 AM ICE CREAM TRUCK DRIVER Plan of Treatment Not on file Procedures Procedure Name Priority Date/Time Associated Diagnosis Comments PSA SCREEN Routine 07/25/2020 9:08 AM ICE CREAM TRUCK DRIVER Screening for hypothyroidism Screening for hyperlipidemia Screening PSA (prostate specific antigen) Screening for hypertension Fatigue, unspecified type Class 2 obesity with body mass index (BMI) of 35.0 to 35.9 in adult, unspecified obesity type, unspecified whether serious comorbidity present COLONOSCOPY Routine 06/14/2015 from Last 3 Months or Most Recently Relevant to Health Maintenance Results * (ABNORMAL) PSA screen (07/25/2020 9:08 AM ICE CREAM TRUCK DRIVER) PSA 4.3(H) 0.0 - 4.0 ng/mL [facility] - 01 Comment: Corinne ECLIA methodology. According to the [place] [employer], Serum PSA should decrease and [...] disease. Blood specimen (specimen) 07/25/2020 9:08 AM ICE CREAM TRUCK DRIVER 07/25/2020 Narrative [facility] - 07/26/2020 9:37 AM ICE CREAM TRUCK DRIVER Performed at: [facility] [address] [id number] Histologic Technician: Rick Villalta PhD, Phone: [phone] us Tigre Gardiner MD LAB BLOOD ORDERABLES Final R esult [facility] - 01 * Colonoscopy (06/14/2015) Anatomical Region Laterality Modality Other us Historical Provider ENDOSCOPY PROCEDURES Toma l Result from Last 3 Months or Most Recently Relevant to Health Maintenance Insurance [employer] [employer] OOS BLUE ACCESS OOS Care Teams Meat Selector Relationship Specialty Start Date End Date Tigre Gardiner MD [address] [facility] [address] [address] PCP - General Family Medicine 07/24/20
--- OUTSIDE RECORDS SUMMARY | 2024-09-21 01:37 | XMS_ITS | Clinical Summary ---
Author Organization [facility] Address [address] [facility] [place] [address] Care Team Providers Care Business Asst Name Role Phone Unavailable Primary Care Provider Unavailabl e Source Comments [facility],non-owned Affiliates and Associated Physician Practices is amultiple site organization consisting of ambulatory clinics and hospital sitesin [place], [place], [place] and [place]. This disclosure is being madepursuant to the Care Everywhere program and may not contain all information available regarding this patient. Last updated 18.[facility] Allergies Active Allergy Reactions Criticality Noted Date [...] Comments Blood Pressure 126/70 05/05/2021 11:54 AM VIDEO GAME MAKER Pulse 83 05/05/2021 11:54 AM VIDEO GAME MAKER Temperature 36.6 C (97.8 F) 05/05/2021 11:54 AM VIDEO GAME MAKER Respiratory Rate 16 05/05/2021 11:54 AM VIDEO GAME MAKER Oxygen Saturation 96% 05/05/2021 11:54 AM VIDEO GAME MAKER Inhaled Oxygen Concentration - - Weight 117.9 kg (260 lb) 05/21/2018 2:52 PM VIDEO GAME MAKER Height 182.9 cm (6') 05/21/2018 2:52 PM VIDEO GAME MAKER Body Mass Index 35.26 05/21/2018 2:52 PM VIDEO GAME MAKER Plan of Treatment Health Maintenance Due Date [...] (4 - season) 2024 10/11/2021, 10/19/2020, 10/05/2020 DEPRESSION SCREENING 06/14/2024 INFLUENZA VACCINE (Season Ended) 2025 03/13/2021, 04/06/2020, 03/04/2019, Additional history exists Respiratory Syncytial Virus (RSV) Vaccine Pt: or [...]
--- OUTSIDE RECORDS SUMMARY | 2024-09-21 01:37 | XMS_ITS | Encounter Summary ---
Author Organization [facility] Address [address] [facility] [place] [address] Care Team Providers Care Toilet Attendant Name Role Phone Unavailable Primary Care Provider Unavailabl e Encounter Details Date Type Department Care Team (Late st Contact Info) Description 02/03/2018 Lab Requisition [facility] Care DermPath Lab [address] [place] [phone] Evan Rand MD [address] [place] [address] Social History Tobacco Use Types Packs/Day Years [...] AM CDT) Case Report Dermatopathology Report Case: [id number] Authorizing Provider: Evan Rand MD Collected: 02/02/2018 [...] (see microscopic description and comment) 5:51 PM [facility] DERMATOPATHOLOGY LABORATORY Clinical History A-B: R/O eczema, CTCL, other dermatitis. 5:51 PM [facility] DERMATOPATHOLOGY LABORATORY Gross Description Specimen A: Received is one formalin filled container labeled with the patient's name and designated left buttock. The specimen consists of a punch biopsy measuring [id number], bisected. Jar 0. Specimen B: Received is one formalin filled container labeled with the patient's name and designated right sup buttock. The specimen consists of a punch biopsy measuring [id number], bisected. Jar 0. 5:51 PM [facility] DERMATOPATHOLOGY LABORATORY Microscopic Description Specimen [...] characteristic determined by the Dermatopathology Laboratory at [facility]. These tests need not be, and therefore are not, approved by the [place] Food and Drug Administration. The tests are used for clinical purposes. Billing Codes Specimen Charges Stain Charges 16032 18078 1 1 40631 55739 08284 21763 00611 77568 36220 49536 1 1 1 1 1 1 1 1 8 5:51 PM CDT DERMATOPATHOLOGY LABORATORY Embedded Images 8 5:51 PM CDT DERMATOPATHOLOGY LABORATORY Pathology/Cytology TISSUE SPECIMEN FROM SKIN / Unknown 02/02/2018 02/03/2018 12:29 PM CDT Miscellaneous samples (specimen) TISSUE SPECIMEN FROM SKIN / Unknown 02/02/2018 02/03/2018 12:29 PM CDT Evan Rand MD LAB - PATHOLOGY/CYTO LOGY ORDERABLES DERMATOPATHOLOGY LABORATORY [facility] - Department of Dermatology [address] [place] [address], [address]th [place] [address], [facility] [phone] documented in this encounter Visit Diagnoses Not on filedocumented in this encounter
--- OUTSIDE RECORDS SUMMARY | 2024-09-21 01:37 | XMS_ITS | Encounter Summary ---
Author Organization [facility] Address [address] [place] [address] Care Team Providers Care Engineering Technician Name Role Phone Unavailable Primary Care Provider Unavailabl e Encounter Details Date Type Department Care Team (Late st Contact Info) Description 04/16/2006 Outpatient Historical [facility] Support Serv[facility] (Adt Cardiology-[facility]) [address] 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
--- OUTSIDE RECORDS SUMMARY | 2024-09-21 01:37 | XMS_ITS | Clinical Summary ---
Author Organization [facility] Address [address] [place] [address] Care Team Providers Care Press Bucker Name Role Phone Unavailable Primary Care Provider [...] Vaccines (1 of 2) 01/24/2010 COVID-19 Vaccine ( - 2023-2 5 season) 2024 RSV Immunization or 60+ Years (1 [...]
--- OUTSIDE RECORDS SUMMARY | 2024-09-21 01:37 | XMS_ITS | CONTINUITY OF CARE DOCUMENT ---
Author Name emilie aprilskylar Address Unknown Organization [facility] Address [address] [address] [place] [address] Phone [phone] Care Team Providers Care Board Of Directors Name Role Phone Chandu Echeverria MD Unavailable [phone] DOTTY MEDNOSA DO Unavailable DOTTY MENDOSA DO Unavailable PROBLEMS Condition Status Date Provider Notes Cardiology examination active Abimael Ahmedzai Atherosclerosis, coronary, seen on CT active 9 Abimael Ahmedzai Family history of CVA active Abimael Ahmedzai ÓSCAR--severe active Abimael Ahmedzai Shortness of breath active Abimael Ahmedzai Chest pain--stress nuc nl, e cho ef nl, mild LVH, 05/2024 active Abimael Ahmedzai ENCOUNTERS Date Type Provider Location Encounter Diag nosis - In-person encounter Office Visit Chandu Echeverria MD [facility] ÓSCAR--severeChest pain--stress nuc nl, echo ef nl, mild LVH, 05/2024 - In-person encounter Office Visit Chandu Echeverria MD [facility] Cardiology examinationAtheroscl erosis, coronary, seen on CTFamily history of CVAOSA--severeShortn ess of breathChest pain--stress nuc nl, echo ef nl, mild LVH, 05/2024 VITAL SIGNS Date Observation Value Provider Body Mass Index (Ratio) 36.21 kg/m2 Francois Echeverria MD blood pressure, diastolic 77 mm[Hg] Evelin anne [facility] blood pressure, systolic 134 mm[Hg] Carolina atkins [facility] oxygen saturation, oximetry 96 % Mally [facility] pulse rate 60 /min Mally [facility] weight E&M 267 [lb_av] Mally [facility] height E&M 72 [in_i] [facility] ([facility] 38.02 kg/m2 Francois Echeverria MD weight E&M 280.4 [lb_av] [facility] blood pressure, diastolic 85 mm[Hg] [facility] blood pressure, systolic 122 mm[Hg] Aminata tyler [place] blood pressure, cuff size regular [facility] oxygen saturation, oximetry 94 % [facility] pulse rate 79 /min [facility] height E&M 72 [in_i] [facility] ALLERGIES Allergy Name Onset Date Reaction [...] 0-149 1 cholesterol, serum 147 mg/dL [employer] [id number] 2416/11/0 1 alanine aminotransferase (SGPT), serum 23 1/L [...] 3.5-5.2 1 sodium, serum 141 mmol/L [employer] [id number]/11/0 1 urea nitrogen/creatinine ratio, serum 10 [employer] [...] Estab. 1 platelet count 250 X10E3/UL [employer] [id number]/11/0 1 red blood cell distribution width 13.4 [...] Payer name Policy type / Coverage type [place] [employer] [facility] Commercial insurance company [facility] [id number] ADVANCE DIRECTIVES Name Date DISCUSSED - NO [...] Echeverria MD Cardiology: O rders: E KG (CPT-47610) S [facility] Study Home (CPT-55175) C omplete Echo (23613) S tress Exercise Cardiolite (CPT-49364) C OMPREHENSIVE METABOLIC PANEL, W/EGFR (22875) L IPID PANEL (7600) H EMOGLOBIN A1c (496) C BC (INCLUDES DIFF/PLT) (6399) L ipoprotein (a) (785540) P ROBNP, N TERMINAL (21790) C RP, high sensitivity (64489) His updated medication list for this problem includes: Aspirin 81 Mg Tablet,delayed Release (dr/ec) (Aspirin) Abimael Nascimento Cardiology: O rders: C omplete Echo (06801) S tress Exercise Cardiolite (CPT-15310) C OMPREHENSIVE METABOLIC PANEL, W/EGFR (31681) L IPID PANEL (7600) H EMOGLOBIN A1c (496) C BC (INCLUDES DIFF/PLT) (6399) L ipoprotein (a) (838887) P ROBNP, N TERMINAL (36844) C RP, high sensitivity (50644) Abimael Nascimento Cardiology: O rders: C omplete Echo (32446) S tress Exercise Cardiolite (CPT-22466) C OMPREHENSIVE METABOLIC PANEL, W/EGFR (37969) L IPID PANEL (7600) H EMOGLOBIN A1c (496) C BC (INCLUDES DIFF/PLT) (6399) L ipoprotein (a) (400261) P ROBNP, N TERMINAL (70480) C RP, high sensitivity (62844) Abimael Ahmedzai Cardiology: O rders: S lee Study Home (CPT-40651) C OMPREHENSIVE METABOLIC PANEL, W/EGFR (60769) L IPID PANEL (7600) H EMOGLOBIN A1c (496) C BC (INCLUDES DIFF/PLT) (6399) L ipoprotein (a) (585758) P ROBNP, N TERMINAL (46786) C RP, high sensitivity (07532) Abimael Ahmedzai Cardiology: O rders: E KG (CPT-68164) C OMPREHENSIVE METABOLIC PANEL, W/EGFR (37558) L IPID PANEL (7600) H EMOGLOBIN A1c (496) C BC (INCLUDES DIFF/PLT) (6399) L ipoprotein (a) (663291) P ROBNP, N TERMINAL (75380) C RP, high sensitivity (65657) Abimael Ahmedzai Date Name CRP, high sensitivit y PROBNP, N TERMINAL Lipoprotein (a) CBC (INCLUDES DIFF/P LT) HEMOGLOBIN A1c LIPID PANEL COMPREHENSIVE METABO LIC PANEL, W/EGFR Stress Exercise Card iolite Complete Echo Sleep Study Home HISTORY OF PROCEDURES Procedure Date Procedure Name Provider Procedure Notes S tatus Complex e/m visit add on Chandu Echeverria MD completed EKG Chandu cEheverria MD completed
--- NOTE | 2024-09-21 08:01 | PM.SD2 ---
Same Day Admit/Disch: HPI History of Present Illness Chief complaint: Right Inguinal Hernia Narrative: Jae Edwards is a 64 year old male who has been having pain in the right groin since the beginning of this year. He had a CT scan last December which showed bilateral fat containing inguinal hernias. He had not noticed a bulge in either groin. The pain was worse with activity. He was seen in the office and found to have a palpable right inguinal hernia but no left inguinal hernia. He has not had any symptoms of pain in the left groin. After discussion, he is taken to surgery now for robotic laparoscopic right inguinal hernia repair with mesh. [facility] Past Medical History Medical History Diabetes mellitus Hyperlipidemia Gastroesophageal reflux disease Hypertension Not currently on medication. Surgical History Surgical History History of breast lump/mass excision History of laparoscopic cholecystectomy History of tonsillectomy Family History Family History Father Cerebrovascular accident Family history of diabetes mellitus in first degree relative Sibling Family history of diabetes mellitus in first degree relative Mother Cancer Social History Social History Social History: Surrogate medical decision maker: Bailey Edwards, spouse. Code status: Full code. Smoking packs per day: 2 Smoking cigarettes per day: 40.0 Years smoked: 10 Smoking pack-years: 20.00 Smoking status: Former smoker Tobacco type: cigarettes Smoking end date: 09/14/91 Alcohol intake: current Drinks per week: 2 Substance use type: does not use Do You Feel Safe in your Home?: Yes Lack of Transportation: No Lack of Food: Never True Current Housing: I Have Housing Concerned About Future Housing: No Difficulty Paying Gas/Electric Bills: No Difficulty Paying for Meds: No Currently Unemployed: No Education: Trade/Vocational Certificate Difficulty w/ Childcare or Family Care: No Living arrangements: with family Spiritual care concerns: No Same Day Admit/Disch: Med Pre-admit Medications Home Medications ?Medication ?Instructions ?Recorded ?Confirmed ?Type aspirin 81 mg tablet,delayed 81 mg PO DAILY 05/08/24 09/13/24 History release (Adult Low Dose Aspirin) atorvastatin 10 mg tablet (Lipitor) 10 mg PO DAILY 07/13/24 09/13/24 History ofloxacin 0.3 % eye drops See Rx Instructions EACH EYE 07/24/24 09/13/24 Rx .COMPLEX #10 mL ibuprofen 600 mg tablet 600 mg PO Q6H PRN pain #14 tabs 09/21/24 Rx oxycodone-acetaminophen 5 mg-325 1 - 2 tablet PO Q6H PRN pain #15 09/21/24 Rx mg tablet (Percocet) tabs Review of Systems Review of Systems All systems reviewed & are unremarkable except as noted in HPI and below (HPI) Exam Const: General: comfortable, no acute distress, alert and awake HENMT: Head: normocephalic and atraumatic Mouth: Yes Normal oral and palatal mucosa present Eyes: Conjunctivae: conjunctivae normal Pupils: Equal, round and reactive pupils present EOM: EOMs intact bilaterally Neck: Neck: normal visual inspection, no lymphadenopathy and nontender Resp: Effort & Inspection: normal respiratory effort Auscultation: clear to auscultation bilaterally Cardio: Rate: regular rate Rhythm: regular rhythm Heart sounds: no gallops, no murmurs and no rubs GI: Inspection: non-distended and obesity GI Palp: Yes Soft to palpation, No Tenderness to palpation present (GI), No Hepatomegaly present and No Splenomegaly present : Male General Exam: Yes hernia (Bulge with cough right groin, left inguinal area normal.) Penis: Yes normal penis Scrotum: scrotum normal Testes: Testes normal Skin: Lesions: no lesions Rashes: no rashes Neuro: General: no focal motor deficits and CN's II-XI intact bilaterally Cranial nerves: Yes Equal, round and reactive pupils present, Yes Bilaterally intact EOM present, Yes facial symmetry and Yes Midline tongue present Speech: normal speech Motor exam (neuro): 5/5 motor strength present throughout and Motor abnormalities not present Extrem: General: no clubbing, cyanosis or edema and edema Psych: Affect: normal affect Thought process: Normal thought process present Insight: Good insight present (Psych) DS: Summary Time Spent with Patient Time attestation: Total time spent providing and/or coordinating discharge services: DS: Admitting Diagnosis Discharge Date 09/21/2024 Admitting Diagnosis Symptomatic, reducible, right inguinal hernia-plan to proceed with robotic laparoscopic repair right inguinal hernia with mesh. The procedure, risks, benefits, alternatives, have all been discussed. The usual length of the surgery, the length of recovery, the use of mesh has been discussed. All questions were answered. Patient understands and agrees to go ahead. DS: Discharge Diagnosis Discharge Diagnosis (1) Inguinal hernia without obstruction or gangrene: Qualifiers: Laterality: unilateral Recurrence: non-recurrent Qualified Code(s): K40.90 - Unilateral inguinal hernia, without obstruction or gangrene, not specified as recurrent Code(s): K40.90 - Unilateral inguinal hernia, without obstruction or gangrene, not specified as recurrent Status: Chronic Assessment and Plan: Robotic laparoscopic repair with mesh performed by Dr. Scott 09/21/2024 Discharge Plan Discharge Patient Disposition: Home Discharge Instructions: 1. May shower the day after surgery over incisions. 2. Call office for: -Wound increasingly painful or bleeding -Vomiting -Fever of greater than 101 degrees 3. Wear scrotal support at all times for 1 week except when showering or sleeping. 4. If no bowel movement for three days, take 1 oz. (30 ml) Milk of Magnesia, if no results, take Fleets enema. 5. No heavy lifting > 15-20 pounds for 2 weeks. 6. No driving for 3 days or while taking narcotic pain medications. 7. Up walking 10-30 minutes three times per day. 8. Resume previous home medications. 9. Follow-up 10-14 days in office for wound check or as previously scheduled. 10. Oral pain medications prescription to be sent home with patient. 11. NUTRITION: Start out by drinking fluids and increase your diet as tolerated. If you experience nausea, try dry toast, crackers, and 7-UP. If nausea or vomiting persists, contact your surgeon?s office. Patient Language: Irish Stand Alone Forms: General Discharge Instructions Follow-up/Referrals: Evan Scott MD [Physician] - 3 Weeks Discharge Medications: New oxycodone-acetaminophen [Percocet] 5-325 mg tablet 1 - 2 tablet PO Q6H PRN (Reason: pain) Qty: 15 0RF ibuprofen 600 mg tablet 600 mg PO Q6H PRN (Reason: pain) Qty: 14 0RF Continued ofloxacin 0.3 % drops See Rx Instructions .ROUTE .COMPLEX Qty: 10 0RF Rx Instructions: put 1-2 drps into affected eye(s) every 2-4 h x 2 days, then 1-2 drps 4 times/day days 3-7 atorvastatin [Lipitor] 10 mg tablet 10 mg PO DAILY aspirin [Adult Low Dose Aspirin] 81 mg tablet,delayed release (DR/EC) 81 mg PO DAILY
[2024-09-21] MEDS: KETOROLAC 15 MG/ML VIAL (*BKC) IV PUSH (10:55)
[2024-09-21] MEDS: LACTATED RINGERS 1,000 ML 30 ML IV CONT ×2 (10:55→14:46)
[2024-09-21] MEDS: ACETAMINOPHEN 500 MG TABLET 1000 MG PO (10:55)
--- NOTE | 2024-09-21 11:53 | WPDANESEPPF ---
Anes - Initial Pre Proc Eval Procedure: Operation Date: 09/21/24 12:00 Proposed Procedures p Robotic Assisted Laparoscopic Right Inguinal Hernia Repair with Mesh - Evan Scott MD Date/Time: 09/21/24 11:53 Surgeon: Evan Scott MD Pre Op Diagnosis: Right Inguinal Hernia Patient Data Age: 64 Gender: M Height: 1.83 m Weight: 111.1 kg Allergies Allergy/AdvReac Type Severity Reaction Status Date / Time Sulfa (Sulfonamide Allergy Mild Hives Verified 09/13/24 08:36 Antibiotics) sulfanilamide Allergy Mild Hives Verified 09/13/24 08:36 Home Medications ?Medication ?Instructions ?Recorded ?Confirmed ?Type aspirin 81 mg tablet,delayed 81 mg PO DAILY 05/08/24 09/13/24 History release (Adult Low Dose Aspirin) atorvastatin 10 mg tablet (Lipitor) 10 mg PO DAILY 07/13/24 09/13/24 History ofloxacin 0.3 % eye drops See Rx Instructions EACH EYE 07/24/24 09/13/24 Rx .COMPLEX #10 mL Patient hx anesthesia problems: none Family hx anesthesia problems: none Results Review: All pre-operative results and documents have been reviewed as part of the pre-operative evaluation. [facility] Past Medical History Medical History Diabetes mellitus Hyperlipidemia Gastroesophageal reflux disease Hypertension Not currently on medication. Surgical History Surgical History History of breast lump/mass excision History of laparoscopic cholecystectomy History of tonsillectomy Family History Family History Father Cerebrovascular accident Family history of diabetes mellitus in first degree relative Sibling Family history of diabetes mellitus in first degree relative Mother Cancer Social History Social History Social History: Surrogate medical decision maker: Bailey Edwards, spouse. Code status: Full code. Smoking packs per day: 2 Smoking cigarettes per day: 40.0 Years smoked: 10 Smoking pack-years: 20.00 Smoking status: Former smoker Tobacco type: cigarettes Smoking end date: 09/14/91 Alcohol intake: current Drinks per week: 2 Substance use type: does not use Do You Feel Safe in your Home?: Yes Lack of Transportation: No Lack of Food: Never True Current Housing: I Have Housing Concerned About Future Housing: No Difficulty Paying Gas/Electric Bills: No Difficulty Paying for Meds: No Currently Unemployed: No Education: Trade/Vocational Certificate Difficulty w/ Childcare or Family Care: No Living arrangements: with family Spiritual care concerns: No Anes - Eval Final PreProcedure Day of Procedure 09/21/24 11:53 Patient weight: obese Lungs: normal air movement Airway: Mallampati scale class II and special considerations (Lower partials. ) Neurological: alert and oriented Last oral intake: >/= 8 hours ASA classification: III Emergent: no Anesthetic plan: proceed Anesthesia type and monitoring: general ETT and standard monitoring Results Review: All pre-operative results and documents have been reviewed as part of the pre-operative evaluation. Hyperlipidemia, ÓSCAR on CPAP, EKG reviewed. Informed Consent: The patient's anesthetic plan and its attendant risks and benefits were discussed with the patient/family/POA. Questions were solicited and answers provided to the satisfaction of the patient/family/POA.
--- NOTE | 2024-09-21 11:58 | WPDHPUPDATE1 ---
History and Physical Update Update Date/Time: 09/21/24 11:58 History and Physical has been reviewed, including an updated exam of the patient. There are NO changes in the patient's condition. Risks, benefits, and alternatives have been discussed and questions answered. Patient agrees to proceed with procedure.
[2024-09-21] MEDS: ceFAZolin 2 GM/D5W 50 ML 2 GM/50 ML BAG IVPB (12:11)
[2024-09-21] MEDS: BUPIVACAINE/EPINEPHRINE 0.5% 30 ML VIAL INFILTRATE (12:51)
[2024-09-21] MEDS: fentaNYL CITRATE INJ (*CRX) 100 MCG/2 ML VIAL 25 MCG IV PUSH (15:05)
--- NOTE | 2024-09-21 15:09 | P.OP_ITS ---
Procedure Note - Detailed Date of Procedure 09/21/24 Pre-op Diagnosis Right Inguinal Hernia Post-op Diagnosis Same Procedure Performed Robotic laparoscopic repair right inguinal hernia with mesh Surgeon Evan Scott MD [employer] AVELAR Anesthesia General and Local Indications Patient has had pain and discomfort in the right groin since June of this year. Trip he was seen in the office found to have a right inguinal hernia. There was no left inguinal hernia. He is taken to surgery now for robotic laparoscopic repair with mesh Findings Patient had a large indirect right inguinal hernia. There was a lot of lipomatous tissue in the inguinal canal as well. Description of Procedure The patient was taken to surgery and induced into general anesthesia. The abdomen is prepped and draped. Trocars were placed in the usual fashion with 3 trocars transversely oriented above the umbilicus. Once the robotic trocars were in place and insufflation was being carried out, patient was placed in Trendelenburg. The robotic arms were brought into the field. The camera was docked and targeted. The operating arms were then docked and the instruments were positioned appropriately. The surgeon went to the robotic console. A peritoneal flap was developed after making an incision anterior to the inguinal canal structures. This flap was developed broadly, dissecting from anterior to posterior. The posterior aspect of the right rectus muscle was dissected down until Jose's ligament was found. Continued dissection displayed the pubis and the medial aspect of the left rectus muscle. Further dissection was carried out about 2 cm posterior to Jose's ligament and then medially over to the obturator plug. Traction was placed on the peritoneum in the indirect space. The transversalis sling was divided and the peritoneum was able to be retracted further. Eventually the into the hernia sac was seen. I was able to divide the hernia sac from the cord structures. There was a lot of lipomatous tissue associated with the cord structures. This was gradually reduced and dissected free from the vas deferens and vascular structures to the testicle. This dissec tion did of course make the surgery more bloody. Once the lipomatous tissue had been adequately reduced and removed from the peritoneal cavity, we then placed an extra-large right-sided mid 3D max mesh into the space created by the peritoneal dissection. The mesh was positioned appropriately. 3-0 Vicryl sutures were used to secure the mesh. The 1st suture was to Jose's ligament. The next 2 sutures were laterally on either side of the inferior epigastric vessels. The mesh was then in good position. Peritoneum was closed with running 3 0 V lock suture. There were a couple of small holes in the peritoneum which were closed with 3-0 Vicryl suture. All looked good. We evacuated CO2 and removed the instruments. The robot was undocked and the trocars were then removed. Skin wounds were closed with subcuticular 4-0 Monocryl skin suture. The wounds were dressed with Exofin surgical adhesive. A scrotal support was placed. Patient was then awakened and taken to recovery in good condition. Sponge and needle counts were correct x2. Implants 17 x 12 cm right-sided mid 3DMax mesh Estimated Blood Loss -10 Drains No Packing No Pathology None sent Complications None Condition Stable Disposition PACU [facility] Billing Surgery - Charge Forward: Surgery Billing (Robotic laparoscopic repair right inguinal hernia with mesh)
== END 2024-09-21 16:43 | disposition home or self-care (01) ==
PROVIDERS: PCP Internal Medicine; Visit Provider Surgery
PROC: 8E0Y4CZ Robotic Assisted Procedure of Lower Extremity, Percutaneous Endoscopic Approach (ICD-10-PCS; CPT 49650; principal; 2024-09-21 12:00)
DX: K40.90 Unilateral inguinal hernia, without obstruction or gangrene, not specified as recurrent (principal); G89.18 Other acute postprocedural pain; E78.5 Hyperlipidemia, unspecified; I10 Essential (primary) hypertension; E11.9 Type 2 diabetes mellitus without complications; K21.9 Gastro-esophageal reflux disease without esophagitis; G47.33 Obstructive sleep apnea (adult) (pediatric); Z68.33 Body mass index [BMI] 33.0-33.9, adult; Z79.82 Long term (current) use of aspirin; Z79.1 Long term (current) use of non-steroidal anti-inflammatories (NSAID); Z79.891 Long term (current) use of opiate analgesic; Z99.89 Dependence on other enabling machines and devices; Z98.890 Other specified postprocedural states; Z90.49 Acquired absence of other specified parts of digestive tract; Z87.891 Personal history of nicotine dependence; Z80.9 Family history of malignant neoplasm, unspecified; Z82.49 Family history of ischemic heart disease and other diseases of the circulatory system
CPT/HCPCS: 49650; S2900; A9270; C1781; J0690; J1100; J1885; J2250; J2405; J2704; J3010; J7120

== ENCOUNTER 2024-10-03 13:56 | Emergency (ER) | payer OTHER, SELFPAY ==
--- NOTE | ~2024-10-03 | US_ITS ---
EXAMINATION: US scrotum doppler DATE: 10/03/2024 14:42 INDICATION: Swollen painful right testicle post hernia repair TECHNIQUE: Testicular sonogram utilizing grayscale and Doppler COMPARISON: None. FINDINGS: The right testis measures 4.4 x 2.9 x 2.9 cm. The left testis measures 3.9 x 3.3 x 3.2 cm. There is r elatively symmetric bilateral tubular ectasia of the rete testes. Otherwise symmetric normal grayscal e appearance to both testes. There is normal vascular flow to both testes. Bilateral anechoic epididy mal cyst measuring 8 mm on the right and 4 mm on the left. Bilateral epididymides are otherwise steve l and symmetric with normal vascular flow. There is no varicocele or left-sided hydrocele. There is a small right hydrocele. There is right-sided scrotal edema.There is echogenic fat along with a 6.1 x 3.2 x 3.6 cm complex fluid collection within the right inguinal canal with hypoechoic fluid with mult iple tiny echogenic foci and with few internal septations with appearance most suggestive of a postop erative hematoma. IMPRESSION: 1. 6.1 x 3.2 x 3.6 cm complex fluid collection likely representing a postoperative hematoma located along side echogenic fat within the right inguinal hernia. 2. Likely reactive right scrotal edema and moderate-sized right hydrocele. 3. Tubular ectasia of the bilateral regional testes and bilateral epididymal cyst. Otherwise normal t narayanan and epididymides with normal vascular flow on color Doppler Reviewed, dictated and finalized at location A. IMPRESSION: 1. 6.1 x 3.2 x 3.6 cm complex fluid collection likely representing a postopera tive hematoma located along side echogenic fat within the right inguinal hernia . 2. Likely reactive right scrotal edema and moderate-sized right hydrocele. 3. Tubular ectasia of the bilateral regional testes and bilateral epididymal cy st. Otherwise normal testes and epididymides with normal vascular flow on color Doppler
[2024-10-03 14:00] VITALS: BP 147/88; PULSE 75; RESP 17; TEMP 36.6; O2SAT 97
--- NOTE | 2024-10-03 14:24 | ED_ITS ---
HPI - General Adult General Chief complaint: Recheck/Abnormal Lab/Rx Stated complaint: Dr. edmonds wants me to have tests Time Seen by Provider: 10/03/24 14:07 History of Present Illness HPI narrative: This is a 64-year-old male presenting with testicle pain. Patient had a robotic right inguinal repair performed by Dr. Edmonds on July 24. Immediately after surgery developed pain in his right testicle. Has been getting progressively worse since then. He saw Dr. Edmonds in the office today who had attempted to get an emergent ultrasound outpatient but unfortunately this could not be cleared by insurance and he was sent to the ED for evaluation. Related Data Home Medications ?Medication ?Instructions ?Recorded ?Confirmed ?Last Taken ?Type aspirin 81 mg tablet,delayed 81 mg PO DAILY 05/08/24 09/13/24 Unknown History release (Adult Low Dose Aspirin) atorvastatin 10 mg tablet (Lipitor) 10 mg PO DAILY 07/13/24 09/13/24 Unknown History Allergies Allergy/AdvReac Type Severity Reaction Status Date / Time Sulfa (Sulfonamide Allergy Mild Hives Verified 10/03/24 14:04 Antibiotics) sulfanilamide Allergy Mild Hives Verified 10/03/24 14:04 [facility] Past Medical History Medical History Diabetes mellitus Hyperlipidemia Gastroesophageal reflux disease Hypertension Not currently on medication. Surgical History Surgical History History of breast lump/mass excision History of laparoscopic cholecystectomy History of tonsillectomy Family History Family History Father Cerebrovascular accident Family history of diabetes mellitus in first degree relative Sibling Family history of diabetes mellitus in first degree relative Mother Cancer Social History Social History Social History: Surrogate medical decision maker: Bailey Edwards, spouse. Code status: Full code. Smoking packs per day: 2 Smoking cigarettes per day: 40.0 Years smoked: 10 Smoking pack-years: 20.00 Smoking status: Former smoker Tobacco type: cigarettes Smoking end date: 09/14/91 Alcohol intake: current Drinks per week: 2 Substance use type: does not use Do You Feel Safe in your Home?: Yes Lack of Transportation: No Lack of Food: Never True Current Housing: I Have Housing Concerned About Future Housing: No Difficulty Paying Gas/Electric Bills: No Difficulty Paying for Meds: No Currently Unemployed: No Education: Trade/Vocational Certificate Difficulty w/ Childcare or Family Care: No Living arrangements: with family Spiritual care concerns: No Exam 2 Narrative: APPEARANCE: No apparent distress. Head: atraumatic. EYES: EOMI, NOSE: Atraumatic NECK: Trachea midline RESPIRATORY: No increased rate of breathing CARDIOVASCULAR: RRR, ABDOMINAL: Non-distended soft nontender : Right testicle is swollen and edematous without overlying skin changes, diffuse tenderness to palpation MUSCULOSKELETAl: No obvious deformities NEURO: Alert. Moving 4/4 extremities SKIN:: Warm, dry. Normal color PSYCHIATRIC: Normal affect Course Vital Signs Vital signs: Vital Signs Temperature 97.9 F 10/03/24 14:00 Pulse Rate 75 10/03/24 14:00 Respiratory Rate 17 10/03/24 14:00 Blood Pressure 147/88 H 10/03/24 14:00 Pulse Oximetry 97 10/03/24 14:00 Oxygen Delivery Room Air 10/03/24 14:00 Temperature 97.9 F 10/03/24 14:00 Pulse Rate 75 10/03/24 14:00 Respiratory Rate 17 10/03/24 14:00 Blood Pressure 147/88 H 10/03/24 14:00 Pulse Oximetry 97 10/03/24 14:00 Oxygen Delivery Room Air 10/03/24 14:00 Medical Decision Making [facility] Narrative Medical decision making narrative: -Course: 64-year-old male presenting with right testicle pain following a right inguinal repair. Ultrasound showed normal vascular flow. There was a complex fluid collection that is likely a hematoma. No fevers or elevated white count. Abscess less likely. Patient is already on antibiotics from his urologist. Case was discussed with Dr. Edmonds who is going see the patient in 2 days. Patient will be discharged on pain medication instructions to elevate his scrotum. Given return precautions for severe pain. -DDX includes but is not limited to: Infarcted testicle, hydrocele, orchitis, epididymitis Vital Signs Vital Signs: Vital Signs Temperature 97.9 F 10/03/24 14:00 Pulse Rate 75 10/03/24 14:00 Respiratory Rate 17 10/03/24 14:00 Blood Pressure 147/88 H 10/03/24 14:00 Pulse Oximetry 97 10/03/24 14:00 Oxygen Delivery Room Air 10/03/24 14:00 Temperature 97.9 F 10/03/24 14:00 Pulse Rate 75 10/03/24 14:00 Respiratory Rate 17 10/03/24 14:00 Blood Pressure 147/88 H 10/03/24 14:00 Pulse Oximetry 97 10/03/24 14:00 Oxygen Delivery Room Air 10/03/24 14:00 Lab Data 10/03/24 14:29 10/03/24 14:29 Labs: Lab Results 10/03/24 10/03/24 Range/Units 14:29 15:33 WBC 8.5 (4.5-10.0) K/mm3 RBC 5.32 (4.6-6.20) M/mm3 Hgb 14.9 (14.0-18.0) g/dL Hct 45.9 (42.0-52.0) % MCV 86.3 (80-100) fl MCH 28.0 (26-34) pg MCHC 32.5 (32-36) g/dl RDW 13.2 (11.5-14.5) % Plt Count 248 (150-375) k/mm3 MPV 9.7 (7.4-10.4) fl Immature Gran % (Auto) 0.5 (0-0.5) % Neut % (Auto) 59.6 (45.5-73.1) % Lymph % (Auto) 15.7 L (18.3-44.2) % [place] % (Auto) 9.0 H (2.6-8.5) % Eos % (Auto) 13.3 H (0-4.4) % Baso % (Auto) 1.9 H (0.2-1.2) % Lymph # (Auto) 1.34 (0.9-3.2) K/mm3 [place] # (Auto) 0.8 H (0.1-0.6) K/mm3 Eos # (Auto) 1.1 H (0-0.3) K/mm3 Baso # (Auto) 0.2 H (0.0-0.1) K/mm3 Abs Immat Gran (auto) 0.04 H (0.00-0.031) K/mm3 Absolute Neuts (auto) 5.1 (1.3-6.7) K/mm3 Absolute Nucleated RBC 0.000 (0.0-0.012) K/mm3 Nucleated RBC % 0.0 (0.0-0.2) % PT 13.0 (11.1-14.7) Seconds INR 0.9 APTT 29.6 (22.3-36.8) Seconds Sodium 141 (137-145) mmol/L Potassium 3.8 (3.4-5.0) mmol/L Chloride 106 (98-107) mmol/L Carbon Dioxide 28 (22-30) mmol/L Anion Gap 7 (4-12) mmol/L BUN 18 (9-20) mg/dL Creatinine 1.11 (0.7-1.3) mg/dL Estim Creat Clear Calc 78 ml/min Estimated GFR > 60 (59 - ) Glucose 109 (65-110) mg/dL Calcium 9.1 (8.4-10.2) mg/dL Total Bilirubin 0.6 (0.2-1.3) mg/dL AST 38 (17-59) U/L ALT 58 H (6-50) U/L Alkaline Phosphatase 101 (38-126) U/L Total Protein 7.0 (6.3-8.2) g/dL Albumin 4.3 (3.5-5.1) g/dL Urine Color Yellow (Yellow) Urine Appearance Clear (Clear) Urine pH 6.0 (5.0-9.0) Ur Specific [place] 1.025 (1.001-1.035) Urine Protein Negative (Negative) mg/dL Urine Glucose (UA) Negative (Negative) mg/dL Urine Ketones Negative (Negative) mg/dL Ur Blood (Man) Negative (Negative) Urine Nitrate Negative (Negative) Urine Bilirubin Negative (Negative) Urine Urobilinogen 1.0 (<2.0) mg/dL Leukocyte Esterase Rfl Negative (Negative) ISELA/UL Discharge Plan Discharge Clinical Impression: Hematoma of scrotum Patient Disposition: Home Condition: Stable Instructions: Antibiotic Form, Testicle Pain (ED) Additional Instructions: Please follow-up with Dr. Edmonds. If you develop severe pain please return to the ED for re-evaluation. Please use Tylenol for pain. Use oxycodone for breakthrough pain. Patient Language: Armenian Prescriptions: New oxycodone 5 mg tablet 5 mg PO Q4H PRN (Reason: pain) Qty: 14 0RF No Action ofloxacin 0.3 % drops See Rx Instructions .ROUTE .COMPLEX Qty: 10 0RF Rx Instructions: put 1-2 drps into affected eye(s) every 2-4 h x 2 days, then 1-2 drps 4 times/day days 3-7 atorvastatin [Lipitor] 10 mg tablet 10 mg PO DAILY aspirin [Adult Low Dose Aspirin] 81 mg tablet,delayed release (DR/EC) 81 mg PO DAILY oxycodone-acetaminophen [Percocet] 5-325 mg tablet 1 - 2 tablet PO Q6H PRN (Reason: pain) Qty: 15 0RF ibuprofen 600 mg tablet 600 mg PO Q6H PRN (Reason: pain) Qty: 14 0RF Follow-up/Referrals: Evan Edmonds MD [Physician] - 1 Week Francois Zimmer DO [Primary Care Provider] -
[2024-10-03 14:35] LABS: Basophils Absolute Auto 0.2 K/mm3 (0.0-0.1); Basophils Percent Auto 1.9 % (0.2-1.2); Eosinophils Absolute Auto 1.1 K/mm3 (0-0.3); Eosinophils Percent Auto 13.3 % (0-4.4); Hematocrit 45.9 % (42.0-52.0); Hemoglobin 14.9 g/dL (14.0-18.0); Immature Granulocyte Absolute 0.04 K/mm3 (0.00-0.031); Immature Granulocyte Percent A 0.5 % (0-0.5); Lymphocytes Absolute Auto 1.34 K/mm3 (0.9-3.2); Lymphocytes Percent Auto 15.7 % (18.3-44.2); Mean Corpuscular HGB Conc 32.5 g/dl (32-36); Mean Corpuscular Volume 86.3 fl (80-100); Mean Platelet Volume 9.7 fl (7.4-10.4); Monocytes Absolute Auto 0.8 K/mm3 (0.1-0.6); Neutrophils Absolute Auto 5.1 K/mm3 (1.3-6.7); Neutrophils Percent Auto 59.6 % (45.5-73.1); Platelet Count Result 248 k/mm3 (150-375); Red Blood Count 5.32 M/mm3 (4.6-6.20); Red Cell Distribution Width 13.2 % (11.5-14.5); White Blood Count 8.5 K/mm3 (4.5-10.0)
[2024-10-03 14:44] LABS: Alanine Aminotransferase 58 U/L (6-50); Albumin Level 4.3 g/dL (3.5-5.1); Alkaline Phosphatase 101 U/L (38-126); Anion Gap 7 mmol/L (4-12); Aspartate Amino Transferase 38 U/L (17-59); Bilirubin,Total 0.6 mg/dL (0.2-1.3); Blood Urea Nitrogen 18 mg/dL (9-20); Calcium 9.1 mg/dL (8.4-10.2); Carbon Dioxide 28 mmol/L (22-30); Chloride 106 mmol/L (98-107); Estimated CRCL calculation 78 ml/min; Estimated Glomerular Filt Rate > 60; Glucose 109 mg/dL (65-110); Potassium 3.8 mmol/L (3.4-5.0); Sodium 141 mmol/L (137-145)
[2024-10-03 14:59] LABS: INR 0.9
[2024-10-03 15:00] LABS: Partial Thromboplastin Time 29.6 Seconds (22.3-36.8)
--- NOTE | 2024-10-03 15:25 | PC.NURSE ---
gave patient urinal and advised that we needed a urine sample.
[2024-10-03 15:40] LABS: Add Urine Microscopic? NO; Appearance Urine Clear (Clear); Bilirubin Urine Negative (Negative); Blood Urine Negative (Negative); Color Urine Yellow (Yellow); Glucose Urine UA Negative (Negative); Ketones Urine Negative (Negative); Leukocyte Esterase Ur Negative LEU/UL (Negative); Nitrate Urine Negative (Negative); Protein Urine Negative (Negative); Specific Grav Ur 1.025 (1.001-1.035)
--- OUTSIDE RECORDS SUMMARY | 2024-10-03 15:57 | XMS_ITS | CONTINUITY OF CARE DOCUMENT ---
Author Name emilie aprilskylar Address Unknown Organization [facility] Address [address] [place] [address] Phone [phone] Care Team Providers Care Private Wealth Advisor Name Role Phone Chandu Echeverria MD Unavailable [phone] DOTTY MENDOSA DO Unavailable DOTTY MENDOSA [...] In-person encounter Office Visit Chandu Echeverria MD [facility] ÓSCAR--severeChest pain--stress nuc nl, echo ef nl, mild LVH, 05/2024 - In-person encounter Office Visit Chandu Echeverria MD [facility] Cardiology examinationAtheroscl erosis, coronary, seen on CTFamily history of CVAOSA--severeShortn ess of breathChest pain--stress nuc nl, echo ef nl, mild LVH, 05/2024 VITAL SIGNS Date Observation Value Provider Body Mass Index (Ratio) 36.21 kg/m2 Francois Echeverria MD blood pressure, diastolic 77 mm[Hg] Evelin anne [facility] blood pressure, systolic 134 mm[Hg] Carolina atkins [facility] oxygen saturation, oximetry 96 % Mally [facility] pulse rate 60 /min Mally [facility] weight E&M 267 [lb_av] Mally [facility] height E&M 72 [in_i] [facility] Body Mass Index (Ratio) 38.02 kg/m2 Francois Echeverria MD weight E&M 280.4 [lb_av] [facility] blood pressure, diastolic 85 mm[Hg] [facility] blood pressure, systolic 122 mm[Hg] Aminata tyler [place] blood pressure, cuff size regular [facility] oxygen saturation, oximetry 94 % [facility] pulse rate 79 /min [facility] height E&M 72 [in_i] [facility] ALLERGIES Allergy Name Onset Date Reaction [...] 0-149 1 cholesterol, serum 147 mg/dL [employer] [phone]/11/0 1 alanine aminotransferase (SGPT), serum 23 1/L [...] 3.5-5.2 1 sodium, serum 141 mmol/L [facility] [phone]/11/0 1 urea nitrogen/creatinine ratio, serum 10 [employer] [...] Estab. 1 platelet count 250 X10E3/UL [facility] [phone]/11/0 1 red blood cell distribution width 13.4 [...] 81 mg tablet,delayed release (DR/EC) active Abimael Nascmiento FUNCTIONAL STATUS Date Observation Value Provider HRA, CV Assess/Plan, Angina (inactive) Management Plan continue current therapy Abimael Nascimento INSURANCE PROVIDERS Payer name Policy type / Coverage type [place] party ID [facility] Commercial insurance company [facility] [id number] ADVANCE DIRECTIVES Name Date DISCUSSED - NO [...] Echeverria MD Cardiology: O rders: E KG (CPT-61032) S [facility] Study Home (CPT-04003) C omplete Echo (47998) S tress Exercise Cardiolite (CPT-73110) C OMPREHENSIVE METABOLIC PANEL, W/EGFR (75109) L IPID PANEL (7600) H EMOGLOBIN A1c (496) C BC (INCLUDES DIFF/PLT) (6399) L ipoprotein (a) (611709) P ROBNP, N TERMINAL (25374) C RP, high sensitivity (63877) His updated medication list for this problem includes: Aspirin 81 Mg Tablet,delayed Release (dr/ec) (Aspirin) Abimael Nascimento Cardiology: O rders: C omplete Echo (62950) S tress Exercise Cardiolite (CPT-62291) C OMPREHENSIVE METABOLIC PANEL, W/EGFR (43583) L IPID PANEL (7600) H EMOGLOBIN A1c (496) C BC (INCLUDES DIFF/PLT) (6399) L ipoprotein (a) (421069) P ROBNP, N TERMINAL (13542) C RP, high sensitivity (85482) Abimael Nascimento Cardiology: O rders: C omplete Echo (46250) S tress Exercise Cardiolite (CPT-50440) C OMPREHENSIVE METABOLIC PANEL, W/EGFR (18670) L IPID PANEL (7600) H EMOGLOBIN A1c (496) C BC (INCLUDES DIFF/PLT) (6399) L ipoprotein (a) (688179) P ROBNP, N TERMINAL (65853) C RP, high sensitivity (82064) Abimael Ahmedzai Cardiology: O rders: S lee Study Home (CPT-19937) C OMPREHENSIVE METABOLIC PANEL, W/EGFR (82520) L IPID PANEL (7600) H EMOGLOBIN A1c (496) C BC (INCLUDES DIFF/PLT) (6399) L ipoprotein (a) (169022) P ROBNP, N TERMINAL (61339) C RP, high sensitivity (72012) Abimael Ahmedzai Cardiology: O rders: E KG (CPT-96316) C OMPREHENSIVE METABOLIC PANEL, W/EGFR (64036) L IPID PANEL (7600) H EMOGLOBIN A1c (496) C BC (INCLUDES DIFF/PLT) (6399) L ipoprotein (a) (272339) P ROBNP, N TERMINAL (72316) C RP, high sensitivity (28946) Abimael Ahmedzai Date Name CRP, high sensitivit [...]
--- OUTSIDE RECORDS SUMMARY | 2024-10-03 15:57 | XMS_ITS | Clinical Summary ---
Author Organization [facility] Address [address] [place] [address] Care Team Providers Care Business Intelligence Engineer Name Role Phone Unavailable Primary Care Provider Unavailabl e Source Comments [facility],non-owned Affiliates and Associated Physician Practices is amultiple site organization consisting of ambulatory clinics and hospital sitesin [place], [place], [place] and [place]. This disclosure is being madepursuant to the Care Everywhere program and may not contain all information available regarding this patient. Last updated 18.[facility] Allergies Active Allergy Reactions Criticality Noted Date Comments Sulfa Drugs Headache 05/21/2018 Medications * Be aware that medications may not be up to date on this document. Alwaysverify current medications with the patient. No known medications Encounters Date Type Department Care Team Description 10/02/2024 Lab Requisition [facility] [address] [place] [id number] Samantha Robledo MD from Last 3 Months Immunizations Immunization Administration Dates Next Due Covid Pfizer primary monovalent 12+ yr 0.3mL Pur ple cap 10/11/2021 Family History Medical History Relation Name Comments CVA Father Relation Name Status Comments Father Social History Tobacco Use Types Packs/Day Years Used Date Smoking Tobacco: Never Smokeless Tobacco: Never Sex and Gender Information Value Date Recorded Sex Assigned at Not on file Legal Sex Male 6:27 PM BOTTOM FINISHER Gender Identity Not on file Sexual Orientation Not on file Last Filed Vital Signs Vital Sign Reading Time Taken Comments Blood Pressure 126/70 05/05/2021 11:54 AM BOTTOM FINISHER Pulse 83 05/05/2021 11:54 AM BOTTOM FINISHER Temperature 36.6 C (97.8 F) 05/05/2021 11:54 AM BOTTOM FINISHER Respiratory Rate 16 05/05/2021 11:54 AM BOTTOM FINISHER Oxygen Saturation 96% 05/05/2021 11:54 AM BOTTOM FINISHER Inhaled Oxygen Concentration - - Weight 117.9 kg (260 lb) 05/21/2018 2:52 PM BOTTOM FINISHER Height 182.9 cm (6') 05/21/2018 2:52 PM BOTTOM FINISHER Body Mass Index 35.26 05/21/2018 2:52 PM BOTTOM FINISHER Plan of Treatment Health Maintenance Due Date [...] on patient's age to complete this topic Insurance [employer]
--- OUTSIDE RECORDS SUMMARY | 2024-10-03 15:57 | XMS_ITS | Encounter Summary ---
Author Organization [facility] Address [address] [place] [address] Care Team Providers Care Bill Board Poster Name Role Phone Unavailable Primary Care Provider Unavailabl e Encounter Details Date Type Department Care Team (Late st Contact Info) Description 04/16/2006 Outpatient Historical [facility] Support [facility] ([facility]) [address] [place] [address] Nikita Carrera MD NO ADDRESS ON FILE Social History Tobacco Use Types Packs/Day Years Used Date Smoking Tobacco: Never Assessed Sex and Gender Information Value Date Recorded Sex Assigned at Not on file Legal Sex Male 3:16 AM HEARING THERAPIST Gender Identity Not on file Sexual Orientation Not on file documented as of this encounter Plan of Treatment Not on file documented as of this encounter Visit Diagnoses Not on filedocumented in this encounter
--- OUTSIDE RECORDS SUMMARY | 2024-10-03 15:57 | XMS_ITS | Clinical Summary ---
Author Organization [facility] Address [address] Attn: Epic Prelude ADT [place] [id number] Care Team Providers Care Medical Instructor Name Role Phone Unavailable Primary Care Provider [...] on file Legal Sex Male 3:16 AM RESOURCE PROGRAM TEACHER Gender Identity Not on file Sexual Orientation [...]
--- OUTSIDE RECORDS SUMMARY | 2024-10-03 15:57 | XMS_ITS | Referral Summary ---
Author Organization [facility] Address [address] [place] [address] Care Team Providers Care Assistant To The Ceo Name Role Phone Tigre Gardiner MD Primary Care Provider [phone] Allergies Active Allergy Reactions Criticality Noted Date [...] on file Legal Sex Male 2:25 AM BARLEY STEEPER Gender Identity Not on file Sexual Orientation Not on file Last Filed Vital Signs Vital Sign Reading Time Taken Comments Blood Pressure 135/84 08/06/2022 9:30 PM BARLEY STEEPER Pulse 69 08/06/2022 9:30 PM BARLEY STEEPER Temperature 36.4 C (97.6 F) 08/06/2022 6:27 PM BARLEY STEEPER Respiratory Rate 20 08/06/2022 9:30 PM BARLEY STEEPER Oxygen Saturation 95% 08/06/2022 9:30 PM BARLEY STEEPER Inhaled Oxygen Concentration - - Weight 126.2 kg (278 lb 3.2 oz) 021 11:08 AM BARLEY STEEPER Height 188 cm (6' 2 ) 07/24/2020 11:08 AM BARLEY STEEPER Body Mass Index 35.72 07/24/2020 11:08 AM BARLEY STEEPER Plan of Treatment Not on file Procedures Procedure Name Priority Date/Time Associated Diagnosis Comments PSA SCREEN Routine 07/25/2020 9:08 AM BARLEY STEEPER Screening for hypothyroidism Screening for hyperlipidemia Screening PSA (prostate specific antigen) Screening for hypertension Fatigue, unspecified type Class 2 obesity with body mass index (BMI) of 35.0 to 35.9 in adult, unspecified obesity type, unspecified whether serious comorbidity present COLONOSCOPY Routine 06/14/2015 from Last 3 Months or Most Recently Relevant to Health Maintenance Results * (ABNORMAL) PSA screen (07/25/2020 9:08 AM BARLEY STEEPER) PSA 4.3(H) 0.0 - 4.0 ng/mL [facility] - 01 Comment: Corinne ECLIA methodology. According to the [place] [employer], Serum PSA should decrease and [...] disease. Blood specimen (specimen) 07/25/2020 9:08 AM BARLEY STEEPER 07/25/2020 Narrative [facility] - 07/26/2020 9:37 AM BARLEY STEEPER Performed at: [facility] [address] [id number] [place] [employer] Lieutenant: Rick Villalta PhD, Phone: [phone] us Tigre Gardiner MD LAB BLOOD ORDERABLES Final R esult [facility] - 01 * Colonoscopy (06/14/2015) Anatomical Region Laterality Modality Other us Historical Provider ENDOSCOPY PROCEDURES Toma l Result from Last 3 Months or Most Recently Relevant to Health Maintenance Insurance [employer] OOS BLUE ACCESS OOS Care Teams Assistant To The Ceo Relationship Specialty Start Date End Date Tigre Gardiner MD [address] [facility] [address] [address] PCP - General Family Medicine 07/24/20
--- OUTSIDE RECORDS SUMMARY | 2024-10-03 15:57 | XMS_ITS | Clinical Summary ---
Author Organization [facility] Address [address] [place] [address] Care Team Providers Care White Shoe Examiner Name Role Phone Tigre Gardiner MD Primary Care Provider [phone] Allergies Active Allergy Reactions Criticality Noted Date [...] on file Legal Sex Male 2:25 AM COMPENSATION/BENEFITS SPECIALIST Gender Identity Not on file Sexual Orientation Not on file Obstetrics History Last Filed Vital Signs Vital Sign Reading Time Taken Comments Blood Pressure 135/84 08/06/2022 9:30 PM COMPENSATION/BENEFITS SPECIALIST Pulse 69 08/06/2022 9:30 PM COMPENSATION/BENEFITS SPECIALIST Temperature 36.4 C (97.6 F) 08/06/2022 6:27 PM COMPENSATION/BENEFITS SPECIALIST Respiratory Rate 20 08/06/2022 9:30 PM COMPENSATION/BENEFITS SPECIALIST Oxygen Saturation 95% 08/06/2022 9:30 PM COMPENSATION/BENEFITS SPECIALIST Inhaled Oxygen Concentration - - Weight 126.2 kg (278 lb 3.2 oz) 021 11:08 AM COMPENSATION/BENEFITS SPECIALIST Height 188 cm (6' 2 ) 07/24/2020 11:08 AM COMPENSATION/BENEFITS SPECIALIST Body Mass Index 35.72 07/24/2020 11:08 AM COMPENSATION/BENEFITS SPECIALIST Plan of Treatment Health Maintenance Due Date [...] Comments PSA SCREEN Routine 07/25/2020 9:08 AM COMPENSATION/BENEFITS SPECIALIST Screening for hypothyroidism Screening for hyperlipidemia Screening PSA (prostate specific antigen) Screening for hypertension Fatigue, unspecified type Class 2 obesity with body mass index (BMI) of 35.0 to 35.9 in adult, unspecified obesity type, unspecified whether serious comorbidity present COLONOSCOPY Routine 06/14/2015 from Last 3 Months or Most Recently Relevant to Health Maintenance Results * (ABNORMAL) PSA screen (07/25/2020 9:08 AM COMPENSATION/BENEFITS SPECIALIST) [facility] PSA 4.3(H) 0.0 - 4.0 ng/mL [facility] - Comment: Corinne ECLIA methodology. According to the [place] [employer], Serum PSA should decrease and [...] disease. Blood specimen (specimen) 07/25/2020 9:08 AM COMPENSATION/BENEFITS SPECIALIST 07/25/2020 Narrative [facility] - 07/26/2020 9:37 AM COMPENSATION/BENEFITS SPECIALIST Performed at: - [facility] [id number] Veterinary Science Teacher: Rick Villalta PhD, Phone: [phone] us Tigre Gardiner MD LAB BLOOD ORDERABLES Final R esult [facility] - 01 * Colonoscopy (06/14/2015) Anatomical Region Laterality Modality Other us Historical Provider ENDOSCOPY PROCEDURES Toma l Result from Last 3 Months or Most Recently Relevant to Health Maintenance Insurance BLUE ACCESS OOS BLUE ACCESS OOS BLUE ACCESS OOS Care Teams White Shoe Examiner Relationship Specialty Start Date End Date Tigre Gardiner MD [address] [place] [address] PCP - General Family Medicine 07/24/20
--- OUTSIDE RECORDS SUMMARY | 2024-10-03 15:57 | XMS_ITS | Clinical Summary ---
Author Organization [facility] Address [address] [place] [address] Care Team Providers Care Oyster Harvester Name Role Phone Unavailable Primary Care Provider [...] Td Vaccines ( 1 - Tdap) 01/24/1979 Pneumococcal Vaccine: 50+ Ye ars (1 of 1 - PCV) 01/24/2010 Zoster Vaccines (1 of 2) 01/24/2010 COVID-19 [...]
--- OUTSIDE RECORDS SUMMARY | 2024-10-03 15:57 | XMS_ITS | Encounter Summary ---
Author Organization [facility] Address [address] [place] [address] Care Team Providers Care Material Man Name Role Phone Unavailable Primary Care Provider Unavailabl e Encounter Details Date Type Department Care Team (Late st Contact Info) Description 02/03/2018 Lab Requisition [facility] Care DermPath Lab [address] [place] [address] Evan Rand MD [address] [place] [address] Social History Tobacco Use Types Packs/Day Years Used Date Smoking Tobacco: Never Assessed Sex and Gender Information Value Date Recorded Sex Assigned at Not on file Legal Sex Male 6:27 PM CLINICAL TRANSPLANT COORDINATOR Gender Identity Not on file Sexual Orientation Not on file documented as of this encounter Plan of Treatment Not on file documented as of this encounter Procedures Procedure Name Priority Date/Time Associated Diagnosis Comments DERMATOPATHOLOGY Routine 02/02/2018 12:0 0 AM CDT documented in this encounter Results * DERMATOPATHOLOGY (02/02/2018 12:00 AM CDT) Case Report Dermatopathology Report Case: [id number] Authorizing Provider: Evan Rand MD Collected: 02/02/2018 [...] microscopic description and comment) 5:51 PM [facility] DERMATOPATHOLOGY LABORATORY Clinical History A-B: R/O eczema, CTCL, other dermatitis. 5:51 PM [facility] DERMATOPATHOLOGY LABORATORY Gross Description Specimen A: Received is one formalin filled container labeled with the patient's name and designated left buttock. The specimen consists of a punch biopsy measuring [id number], bisected. Jar 0. Specimen B: Received is one formalin filled container labeled with the patient's name and designated right sup buttock. The specimen consists of a punch biopsy measuring [id number], bisected. Jar 0. 5:51 PM [facility] DERMATOPATHOLOGY LABORATORY Microscopic Description Specimen A. SKIN, [...] characteristic determined by the Dermatopathology Laboratory at [facility]. These tests need not be, and therefore are not, approved by the [place] Food and Drug Administration. The tests are used for clinical purposes. Billing Codes Specimen Charges Stain Charges 61828 41205 1 1 80291 40586 40239 02938 09420 81487 60373 59759 1 1 1 1 1 1 1 1 8 5:51 PM CDT DERMATOPATHOLOGY LABORATORY Embedded Images 8 5:51 PM CDT DERMATOPATHOLOGY LABORATORY Pathology/Cytology TISSUE SPECIMEN FROM SKIN / Unknown 02/02/2018 02/03/2018 12:29 PM CDT Miscellaneous samples (specimen) TISSUE SPECIMEN FROM SKIN / Unknown 02/02/2018 02/03/2018 12:29 PM CDT Evan Rand MD LAB - PATHOLOGY/CYTOLOGY ORD ERABLES Final Result DERMATOPATHOLOGY LABORATORY [facility] - Department of Dermatology [facility] [facility], 5th [place] [address], [facility] [phone] documented in this encounter Visit Diagnoses Not on filedocumented in this encounter
--- OUTSIDE RECORDS SUMMARY | 2024-10-03 15:57 | XMS_ITS | Encounter Summary ---
Author Organization [facility] Address [address] [place] [address] Care Team Providers Care Boss Miner Name Role Phone Unavailable Primary Care Provider Unavailabl e Encounter Details Date Type Department Care Team (Late st Contact Info) Description 04/16/2006 Outpatient Historical [facility] Nikita Duncan MD [facility] [place] [address] Er, Authorized P NO ADDRESS ON FILE Unspecified Chest Pain (Primary Dx) Social History Tobacco Use Types Packs/Day Years Used Date Smoking Tobacco: Never Assessed Sex and Gender Information Value Date Recorded Sex Assigned at Not on file Legal Sex Male 3:16 AM MUD WORKER Gender Identity Not on file Sexual Orientation Not on file documented as of this encounter Plan of Treatment Not on file documented as of this encounter Procedures Procedure Name Priority Date/Time Associated Diagnosis Comments CBC WITH DIFFERENTIAL Routine 04/16/2006 11:01 AM MUD WORKER CBC WITH DIFFERENTIAL Routine 04/16/2006 11:01 AM MUD WORKER documented in this encounter Results * (ABNORMAL) CBC WITH DIFFERENTIAL (04/16/2006 11:01 AM MUD WORKER) NEUTROPHILS 78(H) 45 - 70 % INTERFAC [...] K/uL INTERFACE SYSTEM 04/16/2006 11:0 1 AM MUD WORKER Nikita Sandoval MD HEMATOLOGY ORDERABLES Final Re sult INTERFACE SYSTEM Refer to clinic/hospital department * (ABNORMAL) CBC WITH DIFFERENTIAL (04/16/2006 11:01 AM MUD WORKER) WBC 8.6 4.0 - 9.8 K/uL INTERFACE [...] fL INTERFACE SYSTEM 04/16/2006 11:0 1 AM MUD WORKER Nikita Sandoval MD HEMATOLOGY ORDERABLES Final Re sult INTERFACE SYSTEM Refer to clinic/hospital department documented in this encounter Visit Diagnoses Diagnosis Chest pain, unspecified- Primary documented in this encounter
--- OUTSIDE RECORDS SUMMARY | 2024-10-03 15:57 | XMS_ITS | Encounter Summary ---
Author Organization [facility] Address [address] [facility] [place] [address] Care Team Providers Care Installation Technician Name Role Phone Unavailable Primary Care Provider Unavailabl e Encounter Details Date Type Department Care Team (Late st Contact Info) Description 10/02/2024 Lab Requisition [facility] - DermPath Lab [address] [facility], [place] [phone] Samantha Robledo MD [address] [facility] [address] [place] [address] Social History Tobacco Use Types Packs/Day Years Used Date Smoking Tobacco: Never Smokeless Tobacco: Never Sex and Gender Information Value Date Recorded Sex Assigned at Not on file Legal Sex Male 6:27 PM 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
--- OUTSIDE RECORDS SUMMARY | 2024-10-03 15:57 | XMS_ITS | Encounter Summary ---
Author Organization [facility] Address [address] [place] [address] Care Team Providers Care Engine Specialist Name Role Phone Unavailable Primary Care Provider Unavailabl e Encounter Details Date Type Department Care Team (Late st Contact Info) Description 04/16/2006 Outpatient Historical [facility] Support Serv. (Adt Cardiology-[facility]) [address] [place] [address] Nikita Carrera MD NO ADDRESS ON FILE Social History Tobacco Use Types Packs/Day Years Used Date Smoking Tobacco: Never Assessed Sex and Gender Information Value Date Recorded Sex Assigned at Not on file Legal Sex Male 3:16 AM FRONT DESK RECEPTIONIST Gender Identity Not on file Sexual Orientation Not on file documented as of this encounter Plan of Treatment Not on file documented as of this encounter Visit Diagnoses Not on filedocumented in this encounter
--- OUTSIDE RECORDS SUMMARY | 2024-10-03 16:23 | XMS_ITS | Encounter Summary ---
Author Organization [facility] Address [address] [facility] [place] [address] Care Team Providers Care Electrical Instrument Technician Name Role Phone Unavailable Primary Care Provider Unavailabl e Encounter Details Date Type Department Care Team (Late st Contact Info) Description 02/03/2018 Lab Requisition [facility] Care DermPath Lab [address] [place] [address] Evan Rand MD [address] [place] [address] Social History Tobacco Use Types Packs/Day Years Used Date Smoking Tobacco: Never Assessed Sex and Gender Information Value Date Recorded Sex Assigned at Not on file 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 Gender Identity Not on file Sexual Orientation Not on file documented as of this encounter Plan of Treatment Not on file documented as of this encounter Procedures Procedure Name Priority Date/Time Associated Diagnosis Comments DERMATOPATHOLOGY Routine 02/02/2018 12:0 0 AM CDT documented in this encounter Results * DERMATOPATHOLOGY (02/02/2018 12:00 AM CDT) Case Report Dermatopathology Report Case: [id number] Authorizing Provider: Evan Rand MD Collected: 02/02/2018 [...] (see microscopic description and comment) 5:51 PM [facility] DERMATOPATHOLOGY LABORATORY Clinical History A-B: R/O eczema, CTCL, other dermatitis. 5:51 PM [facility] DERMATOPATHOLOGY LABORATORY Gross Description Specimen A: Received is one formalin filled container labeled with the patient's name and designated left buttock. The specimen consists of a punch biopsy measuring [id number], bisected. Jar 0. Specimen B: Received is one formalin filled container labeled with the patient's name and designated right sup buttock. The specimen consists of a punch biopsy measuring [id number], bisected. Jar 0. 5:51 PM [facility] DERMATOPATHOLOGY LABORATORY Microscopic Description Specimen A. [...] characteristic determined by the Dermatopathology Laboratory at [facility]. These tests need not be, and therefore are not, approved by the [place] Food and Drug Administration. The tests are used for clinical purposes. Billing Codes Specimen Charges Stain Charges 50079 82612 1 1 46332 42810 66365 19846 71747 29130 05813 92725 1 1 1 1 1 1 1 1 8 5:51 PM CDT DERMATOPATHOLOGY LABORATORY Embedded Images 8 5:51 PM CDT DERMATOPATHOLOGY LABORATORY Pathology/Cytology TISSUE SPECIMEN FROM SKIN / Unknown 02/02/2018 02/03/2018 12:29 PM CDT Miscellaneous samples (specimen) TISSUE SPECIMEN FROM SKIN / Unknown 02/02/2018 02/03/2018 12:29 PM CDT Evan Rand MD LAB - PATHOLOGY/CYTOLOGY ORD ERABLES Final Result DERMATOPATHOLOGY LABORATORY [facility] - Department of Dermatology [facility] [facility], [address] [place] [address], [facility] [phone] documented in this encounter Visit Diagnoses Not on filedocumented in this encounter
--- OUTSIDE RECORDS SUMMARY | 2024-10-03 16:23 | XMS_ITS | Encounter Summary ---
Author Organization [facility] Address [address] [place] [address] Care Team Providers Care Associate Merchandise Planner Name Role Phone Unavailable Primary Care Provider Unavailabl e Encounter Details Date Type Department Care Team (Late st Contact Info) Description 04/16/2006 Outpatient Historical [facility] Support Serv. (Adt Cardiology-[facility]) [address] 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
--- OUTSIDE RECORDS SUMMARY | 2024-10-03 16:23 | XMS_ITS | Encounter Summary ---
Author Organization [facility] Address [address] [facility] [place] [address] Care Team Providers Care Sole Inker Name Role Phone Unavailable Primary Care Provider Unavailabl e Encounter Details Date Type Department Care Team (Late st Contact Info) Description 10/02/2024 Lab Requisition [facility] - DermPath Lab [address] [facility] [place] [address] Samantha Robledo MD [address] [facility] [address] [place] [address] Social History Tobacco Use Types Packs/Day Years Used Date Smoking Tobacco: Never Smokeless Tobacco: Never Sex and Gender Information Value Date Recorded Sex Assigned at Not on file 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
--- OUTSIDE RECORDS SUMMARY | 2024-10-03 16:23 | XMS_ITS | Clinical Summary ---
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 TECHNICIAN Gender Identity Not on file Sexual Orientation Not on file Obstetrics History Last Filed Vital Signs Vital Sign Reading Time Taken Comments Blood Pressure 135/84 08/06/2022 9:30 PM ELECTROMECHANICAL TECHNICIAN Pulse 69 08/06/2022 9:30 PM ELECTROMECHANICAL TECHNICIAN Temperature 36.4 C (97.6 F) 08/06/2022 6:27 PM ELECTROMECHANICAL TECHNICIAN Respiratory Rate 20 08/06/2022 9:30 PM ELECTROMECHANICAL TECHNICIAN Oxygen Saturation 95% 08/06/2022 9:30 PM ELECTROMECHANICAL TECHNICIAN Inhaled Oxygen Concentration - - Weight 126.2 kg (278 lb 3.2 oz) 021 11:08 AM ELECTROMECHANICAL TECHNICIAN Height 188 cm (6' 2 ) 07/24/2020 11:08 AM ELECTROMECHANICAL TECHNICIAN Body Mass Index 35.72 07/24/2020 11:08 AM ELECTROMECHANICAL TECHNICIAN Plan of Treatment Health Maintenance Due Date [...] Comments PSA SCREEN Routine 07/25/2020 9:08 AM ELECTROMECHANICAL TECHNICIAN Screening for hypothyroidism Screening for hyperlipidemia Screening PSA (prostate specific antigen) Screening for hypertension Fatigue, unspecified type Class 2 obesity with body mass index (BMI) of 35.0 to 35.9 in adult, unspecified obesity type, unspecified whether serious comorbidity present COLONOSCOPY Routine 06/14/2015 from Last 3 Months or Most Recently Relevant to Health Maintenance Results * (ABNORMAL) PSA screen (07/25/2020 9:08 AM ELECTROMECHANICAL TECHNICIAN) [facility] PSA 4.3(H) 0.0 - 4.0 ng/mL [facility] - Comment: Corinne ECLIA methodology. According to the [place] [employer], Serum PSA should decrease and [...] disease. Blood specimen (specimen) 07/25/2020 9:08 AM ELECTROMECHANICAL TECHNICIAN 07/25/2020 Narrative [facility] - 07/26/2020 9:37 AM ELECTROMECHANICAL TECHNICIAN Performed at: - [facility] [id number] Operating Systems Programmer: Rick Villalta PhD, Phone: [phone] us Tigre Gardiner MD LAB BLOOD ORDERABLES Final R esult [facility] - 01 * Colonoscopy (06/14/2015) Anatomical Region Laterality Modality Other us Historical Provider ENDOSCOPY PROCEDURES Toma l Result from Last 3 Months or Most Recently Relevant to Health Maintenance Insurance BLUE ACCESS OOS BLUE ACCESS OOS BLUE ACCESS OOS Care Teams In House Counsel Relationship Specialty Start Date End Date Tigre Gardiner MD [address] [address] PCP - General Family Medicine 07/24/20
--- OUTSIDE RECORDS SUMMARY | 2024-10-03 16:23 | XMS_ITS | Referral Summary ---
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 Gender Identity Not on file Sexual Orientation Not on file Last Filed Vital Signs Vital Sign Reading Time Taken Comments Blood Pressure 135/84 08/06/2022 9:30 PM MARINE MAMMAL TRAINER Pulse 69 08/06/2022 9:30 PM MARINE MAMMAL TRAINER Temperature 36.4 C (97.6 F) 08/06/2022 6:27 PM MARINE MAMMAL TRAINER Respiratory Rate 20 08/06/2022 9:30 PM MARINE MAMMAL TRAINER Oxygen Saturation 95% 08/06/2022 9:30 PM MARINE MAMMAL TRAINER Inhaled Oxygen Concentration - - Weight 126.2 kg (278 lb 3.2 oz) 021 11:08 AM MARINE MAMMAL TRAINER Height 188 cm (6' 2 ) 07/24/2020 11:08 AM MARINE MAMMAL TRAINER Body Mass Index 35.72 07/24/2020 11:08 AM MARINE MAMMAL TRAINER Plan of Treatment Not on file Procedures Procedure Name Priority Date/Time Associated Diagnosis Comments PSA SCREEN Routine 07/25/2020 9:08 AM MARINE MAMMAL TRAINER Screening for hypothyroidism Screening for hyperlipidemia Screening PSA (prostate specific antigen) Screening for hypertension Fatigue, unspecified type Class 2 obesity with body mass index (BMI) of 35.0 to 35.9 in adult, unspecified obesity type, unspecified whether serious comorbidity present COLONOSCOPY Routine 06/14/2015 from Last 3 Months or Most Recently Relevant to Health Maintenance Results * (ABNORMAL) PSA screen (07/25/2020 9:08 AM MARINE MAMMAL TRAINER) PSA 4.3(H) 0.0 - 4.0 ng/mL [facility] - 01 Comment: Corinne ECLIA methodology. According to the [place] [employer], Serum PSA should decrease and [...] disease. Blood specimen (specimen) 07/25/2020 9:08 AM MARINE MAMMAL TRAINER 07/25/2020 Narrative [facility] - 07/26/2020 9:37 AM MARINE MAMMAL TRAINER Performed at: [facility] [address] [id number] Excel Specialist: Rick Villalta PhD, Phone: [phone] us Tigre Gardiner MD LAB BLOOD ORDERABLES Final R esult [facility] - 01 * Colonoscopy (06/14/2015) Anatomical Region Laterality Modality Other us Historical Provider ENDOSCOPY PROCEDURES Toma l Result from Last 3 Months or Most Recently Relevant to Health Maintenance Insurance [employer] OOS BLUE ACCESS OOS Care Teams Roller Mill Operator Relationship Specialty Start Date End Date Tigre Gardiner MD [address] [facility] [address] [address] PCP - General Family Medicine 07/24/20
--- OUTSIDE RECORDS SUMMARY | 2024-10-03 16:23 | XMS_ITS | CONTINUITY OF CARE DOCUMENT ---
Author Name emilie aprilskylar Address Unknown Organization [facility] Address [address] [facility] [address] [place] [address] Phone [phone] Care Team Providers Care Shed Boss Name Role Phone Chandu Echeverria MD Unavailable DOTTY MENDOSA DO Unavailable [phone] DOTTY MENDOSA DO Unavailable [phone] PROBLEMS Condition Status Date Provider Notes Cardiology [...] encounter Office Visit Chandu Echeverria MD [facility] Office ÓSCAR--severeChest pain--stress nuc nl, echo ef nl, mild LVH, 05/2024 - In-person encounter Office Visit Chandu Echeverria MD [place] [facility] Cardiology examinationAtheroscl erosis, coronary, seen on CTFamily history of CVAOSA--severeShortn ess of breathChest pain--stress nuc nl, echo ef nl, mild LVH, 05/2024 VITAL SIGNS Date Observation Value Provider Body Mass Index (Ratio) 36.21 kg/m2 Francois Echeverria MD blood pressure, diastolic 77 mm[Hg] Evelin anne [facility] blood pressure, systolic 134 mm[Hg] Carolina atkins [facility] oxygen saturation, oximetry 96 % Mally [facility] pulse rate 60 /min Mally [facility] weight E&M 267 [lb_av] Mally [facility] height E&M 72 [in_i] [facility] Body [facility] Index (Ratio) 38.02 kg/m2 Francois Echeverria MD weight E&M 280.4 [lb_av] [facility] blood pressure, diastolic 85 mm[Hg] [facility] blood pressure, systolic 122 mm[Hg] Aminata tyler [place] blood pressure, cuff size regular [facility] oxygen saturation, oximetry 94 % [facility] pulse rate 79 /min [facility] height E&M 72 [in_i] [facility] ALLERGIES Allergy Name Onset Date Reaction Criticality [...] 0-149 1 cholesterol, serum 147 mg/dL [facility] [phone]/11/0 1 alanine aminotransferase (SGPT), serum 23 1/L [...] 3.5-5.2 1 sodium, serum 141 mmol/L [facility] [phone]/11/0 1 urea nitrogen/creatinine ratio, serum 10 [facility] [...] Estab. 1 platelet count 250 X10E3/UL [facility] [phone]/11/0 1 red blood cell distribution width 13.4 [...] Payer name Policy type / Coverage type [place] red constitution party ID [facility] Commercial insurance company [facility] [id number] ADVANCE DIRECTIVES Name Date DISCUSSED - NO DECISION MADE TREATMENT PLAN Date Name Performer Cardiology: H is updated medication list for this problem includes: Aspirin 81 Mg Tablet,delayed Release (dr/ec) (Aspirin) Chandu Ecehverria MD Cardiology: H is updated medication list [...] Echeverria MD Cardiology: O rders: E KG (CPT-91364) [facility] Study Home (CPT-21480) C omplete Echo (05597) S tress Exercise Cardiolite (CPT-84056) C OMPREHENSIVE METABOLIC PANEL, W/EGFR (03450) L IPID PANEL (7600) H EMOGLOBIN A1c (496) C BC (INCLUDES DIFF/PLT) (6399) L ipoprotein (a) (658923) P ROBNP, N TERMINAL (23058) C RP, high sensitivity (73889) His updated medication list for this problem includes: Aspirin 81 Mg Tablet,delayed Release (dr/ec) (Aspirin) Abimael Nascimento Cardiology: O rders: C omplete Echo (03525) S tress Exercise Cardiolite (CPT-70375) C OMPREHENSIVE METABOLIC PANEL, W/EGFR (81100) L IPID PANEL (7600) H EMOGLOBIN A1c (496) C BC (INCLUDES DIFF/PLT) (6399) L ipoprotein (a) (071642) P ROBNP, N TERMINAL (93519) C RP, high sensitivity (35144) Abimael Nascimento Cardiology: O rders: C omplete Echo (69678) S tress Exercise Cardiolite (CPT-45548) C OMPREHENSIVE METABOLIC PANEL, W/EGFR (47378) L IPID PANEL (7600) H EMOGLOBIN A1c (496) C BC (INCLUDES DIFF/PLT) (6399) L ipoprotein (a) (013106) P ROBNP, N TERMINAL (47848) C RP, high sensitivity (40087) Abimael Ahmedzai Cardiology: O rders: S lee Study Home (CPT-83167) C OMPREHENSIVE METABOLIC PANEL, W/EGFR (83905) L IPID PANEL (7600) H EMOGLOBIN A1c (496) C BC (INCLUDES DIFF/PLT) (6399) L ipoprotein (a) (668173) P ROBNP, N TERMINAL (81242) C RP, high sensitivity (10990) Abimael Ahmedzai Cardiology: O rders: E KG (CPT-63456) C OMPREHENSIVE METABOLIC PANEL, W/EGFR (77739) L IPID PANEL (7600) H EMOGLOBIN A1c (496) C BC (INCLUDES DIFF/PLT) (6399) L ipoprotein (a) (234124) P ROBNP, N TERMINAL (27286) C RP, high sensitivity (26943) Abimael Ahmedzai Date Name CRP, high sensitivit [...]
--- OUTSIDE RECORDS SUMMARY | 2024-10-03 16:23 | XMS_ITS | Clinical Summary ---
Author Organization [facility] Address [address] [facility] Attn: Epic Prelude ADT DARWNI FUNES [address] Care Team Providers Care Squirt Machine Operator Name Role Phone Unavailable Primary Care [...] on file Legal Sex Male 3:16 AM PURE CULTURE OPERATOR Gender Identity Not on file Sexual [...]
--- OUTSIDE RECORDS SUMMARY | 2024-10-03 16:23 | XMS_ITS | Encounter Summary ---
Author Organization [facility] Address [address] [place] [address] Care Team Providers Care Cement Patcher Name Role Phone Unavailable Primary Care Provider Unavailabl e Encounter Details Date Type Department Care Team (Late st Contact Info) Description 04/16/2006 Outpatient Historical [facility] Nikita Duncan MD [facility] [place] [address] Er, Authorized P NO ADDRESS ON FILE Unspecified Chest Pain (Primary Dx) Social History Tobacco Use Types Packs/Day Years Used Date Smoking Tobacco: Never Assessed Sex and Gender Information Value Date Recorded Sex Assigned at Not on file Legal Sex Male 3:16 AM TAX EXAMINER Gender Identity Not on file Sexual Orientation Not on file documented as of this encounter Plan of Treatment Not on file documented as of this encounter Procedures Procedure Name Priority Date/Time Associated Diagnosis Comments CBC WITH DIFFERENTIAL Routine 04/16/2006 11:01 AM TAX EXAMINER CBC WITH DIFFERENTIAL Routine 04/16/2006 11:01 AM TAX EXAMINER documented in this encounter Results * (ABNORMAL) CBC WITH DIFFERENTIAL (04/16/2006 11:01 AM TAX EXAMINER) NEUTROPHILS 78(H) 45 - 70 % INTERFAC [...] K/uL INTERFACE SYSTEM 04/16/2006 11:0 1 AM TAX EXAMINER Nikita Sandoval MD HEMATOLOGY ORDERABLES Final Re sult INTERFACE SYSTEM Refer to clinic/hospital department * (ABNORMAL) CBC WITH DIFFERENTIAL (04/16/2006 11:01 AM TAX EXAMINER) WBC 8.6 4.0 - 9.8 K/uL INTERFACE [...] fL INTERFACE SYSTEM 04/16/2006 11:0 1 AM TAX EXAMINER Nikita Sandoval MD HEMATOLOGY ORDERABLES Final Re sult INTERFACE SYSTEM Refer to clinic/hospital department documented in this encounter Visit Diagnoses Diagnosis Chest pain, unspecified- Primary documented in this encounter
--- OUTSIDE RECORDS SUMMARY | 2024-10-03 16:23 | XMS_ITS | Encounter Summary ---
Author Organization [facility] Address [address] [place] [address] Care Team Providers Care Marine Operations Coordinator Name Role Phone Unavailable Primary Care Provider Unavailabl e Encounter Details Date Type Department Care Team (Late st Contact Info) Description 04/16/2006 Outpatient Historical [facility] Support [facility] ([facility]) [address] 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
--- OUTSIDE RECORDS SUMMARY | 2024-10-03 16:23 | XMS_ITS | Clinical Summary ---
Author Organization [facility] [employer] Address [address] [facility] [place] [address] Care Team Providers Care Service Architect Name Role Phone Unavailable Primary Care Provider Unavailabl e Source Comments [facility],non-owned Affiliates and Associated Physician Practices is amultiple site organization consisting of ambulatory clinics and hospital sitesin [place], [place], [place] and [place]. This disclosure is being madepursuant to the Care Everywhere program and may not contain all information available regarding this patient. Last updated 18.[facility] Allergies Active Allergy Reactions Criticality Noted Date Comments Sulfa Drugs Headache 05/21/2018 Medications * Be aware that medications may not be up to date on this document. Alwaysverify current medications with the patient. No known medications Encounters Date Type Department Care Team Description 10/02/[address] 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 Gender Identity Not on file Sexual Orientation Not on file Last Filed Vital Signs Vital Sign Reading Time Taken Comments Blood Pressure 126/70 05/05/2021 11:54 AM SUPERVISOR PAINT DEPARTMENT Pulse 83 05/05/2021 11:54 AM SUPERVISOR PAINT DEPARTMENT Temperature 36.6 C (97.8 F) 05/05/2021 11:54 AM SUPERVISOR PAINT DEPARTMENT Respiratory Rate 16 05/05/2021 11:54 AM SUPERVISOR PAINT DEPARTMENT Oxygen Saturation 96% 05/05/2021 11:54 AM SUPERVISOR PAINT DEPARTMENT Inhaled Oxygen Concentration - - Weight 117.9 kg (260 lb) 05/21/2018 2:52 PM SUPERVISOR PAINT DEPARTMENT Height 182.9 cm (6') 05/21/2018 2:52 PM SUPERVISOR PAINT DEPARTMENT Body Mass Index 35.26 05/21/2018 2:52 PM SUPERVISOR PAINT DEPARTMENT Plan of Treatment Health Maintenance Due Date [...]
--- OUTSIDE RECORDS SUMMARY | 2024-10-03 16:23 | XMS_ITS | Clinical Summary ---
Author Organization [facility] Address [address] [place] [address] Care Team Providers Care Chief Accounting Officer Name Role Phone Unavailable Primary Care Provider [...]
== END 2024-10-03 16:04 | disposition home or self-care (01) ==
PROVIDERS: Emergency Provider Emergency Medicine; PCP Internal Medicine
DX: S30.22XA Contusion of scrotum and testes, initial encounter (principal); E11.9 Type 2 diabetes mellitus without complications; E78.5 Hyperlipidemia, unspecified; K21.9 Gastro-esophageal reflux disease without esophagitis; X58.XXXA Exposure to other specified factors, initial encounter
CPT/HCPCS: 36415; 76870; 80053; 81003; 85025; 85610; 85730; 93976; 99284

== ENCOUNTER 2024-11-23 10:51 | Outpatient (CLI) | payer BC, SELFPAY ==
--- NOTE | ~2024-11-23 | US_ITS ---
EXAMINATION: US soft tissue groin RT DATE: 11/23/2024 11:14 INDICATION: Right lower quadrant abdominal pain TECHNIQUE: Multiple grayscale and Doppler ultrasound images of the right inguinal canal were obtained . COMPARISON: CT dated 12/12/2023 FINDINGS: Again seen is increased fat within the right inguinal canal consistent with a previously seen large f at-containing right inguinal hernia which on CT extended into the scrotum. There is a new 3.8 x 2.1 x 3.0 cm complex anechoic and hypoechoic fluid collection positioned along side fat within the inguina l canal which could represent a residual hematoma/seroma post reported recent inguinal hernia repair. There is no significant movement of the fluid collection with the fat within the inguinal canal with Valsalva. IMPRESSION: 1. 3.8 x 2.1 x 3.0 cm complex fluid collection likely postoperative hematoma/seroma along side persis tent increased amount of fat within the right inguinal canal. There is no evident movement of the hem atoma or within the canal with Valsalva which could be due to successful repair at the entrance to th e inguinal canal. Reviewed, dictated and finalized at location A. IMPRESSION: 1. 3.8 x 2.1 x 3.0 cm complex fluid collection likely postoperative hematoma/se maximo along side persistent increased amount of fat within the right inguinal ca nal. There is no evident movement of the hematoma or within the canal with Vals marlow which could be due to successful repair at the entrance to the inguinal ca nal.
== END 2024-11-23 10:52 | disposition home or self-care (01) ==
LOC: GOSHIMG 10:52
PROVIDERS: PCP Surgery; Visit Provider Surgery
DX: R10.31 Right lower quadrant pain (principal); Z98.890 Other specified postprocedural states; Z87.19 Personal history of other diseases of the digestive system
CPT/HCPCS: 76882

== ENCOUNTER 2024-11-27 08:22 | Outpatient (CLI) | payer OTHER, SELFPAY ==
--- OUTSIDE RECORDS SUMMARY | 2024-11-27 08:36 | XMS_ITS | Encounter Summary ---
Author Organization [facility] Address [address] [place] [address] Care Team Providers Care Hydroelectric Systems Technician Name Role Phone Unavailable Primary Care Provider Unavailabl e Encounter Details Date Type Department Care Team (Late st Contact Info) Description 02/03/2018 Lab Requisition [facility] Care DermPath Lab [address] [place] [address] Evan Rand MD [address] [place] [address] Social History Tobacco Use Types Packs/Day Years Used Date Smoking Tobacco: Never Assessed Sex and Gender Information Value Date Recorded Sex Assigned at Not on file 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 Gender Identity Not on file Sexual Orientation Not on file documented as of this encounter Plan of Treatment Not on file documented as of this encounter Procedures Procedure Name Priority Date/Time Associated Diagnosis Comments DERMATOPATHOLOGY Routine 02/02/2018 12:0 0 AM CDT documented in this encounter Results * DERMATOPATHOLOGY (02/02/2018 12:00 AM CDT) Case Report Dermatopathology Report Case: [id number] Authorizing Provider: Evan Rand MD Collected: 02/02/2018 [...] DERMATITIS (L30.8) (see microscopic description and comment) 8 5:51 PM T DERMATOPATHOLOGY LABORATORY at 1751 CDT Clinical History A-B: R/O eczema, CTCL, other dermatitis. 8 5:51 PM CDT DERMATOPATHOLOGY LABORATORY Gross Description Specimen A: Received is one formalin filled container labeled with the patient's name and designated left buttock. The specimen consists of a punch biopsy measuring 7m8n5ym, bisected. Jar 0. Specimen B: Received is one formalin filled container labeled with the patient's name and designated right sup buttock. The specimen consists of a punch biopsy measuring 4p1x0yz, bisected. Jar 0. 8 5:51 PM T DERMATOPATHOLOGY LABORATORY Microscopic Description Specimen A. SKIN, [...] determined by the Dermatopathology Laboratory at [facility]. These tests need not be, and therefore are not, approved by the [place] Food and Drug Administration. The tests are used for clinical purposes. Billing Codes Specimen Charges Stain Charges 72336 56589 1 1 44501 72661 90986 42460 98594 29070 72444 00716 1 1 1 1 1 1 1 1 8 5:51 PM CDT DERMATOPATHOLOGY LABORATORY Embedded Images 8 5:51 PM CDT DERMATOPATHOLOGY LABORATORY Pathology/Cytology TISSUE SPECIMEN FROM SKIN / Unknown 02/02/2018 02/03/2018 12:29 PM CDT Miscellaneous samples (specimen) TISSUE SPECIMEN FROM SKIN / Unknown 02/02/2018 02/03/2018 12:29 PM CDT Evan Rand MD LAB - PATHOLOGY/CYTOLOGY ORD ERABLES Final Result DERMATOPATHOLOGY LABORATORY [facility] - Department of Dermatology [facility] [facility] 5th [place] [address], [facility] [phone] documented in this encounter Visit Diagnoses Not on filedocumented in this encounter
--- OUTSIDE RECORDS SUMMARY | 2024-11-27 08:36 | XMS_ITS | Referral Summary ---
Author Organization [facility] Address [address] [place] [address] Care Team Providers Care Kitchen Supervisor Name Role Phone Tigre Gardiner MD Primary Care Provider [phone] Allergies Active Allergy Reactions Criticality Noted Date [...] on file Legal Sex Male 2:25 AM PERSONAL INJURY LITIGATION PARALEGAL Gender Identity Not on file Sexual Orientation Not on file Last Filed Vital Signs Vital Sign Reading Time Taken Comments Blood Pressure 135/84 08/06/2022 9:30 PM PERSONAL INJURY LITIGATION PARALEGAL Pulse 69 08/06/2022 9:30 PM PERSONAL INJURY LITIGATION PARALEGAL Temperature 36.4 C (97.6 F) 08/06/2022 6:27 PM PERSONAL INJURY LITIGATION PARALEGAL Respiratory Rate 20 08/06/2022 9:30 PM PERSONAL INJURY LITIGATION PARALEGAL Oxygen Saturation 95% 08/06/2022 9:30 PM PERSONAL INJURY LITIGATION PARALEGAL Inhaled Oxygen Concentration - - Weight 126.2 kg (278 lb 3.2 oz) 021 11:08 AM PERSONAL INJURY LITIGATION PARALEGAL Height 188 cm (6' 2) 07/24/2020 11:08 AM PERSONAL INJURY LITIGATION PARALEGAL Body Mass Index 35.72 07/24/2020 11:08 AM PERSONAL INJURY LITIGATION PARALEGAL Plan of Treatment Not on file Procedures Procedure Name Priority Date/Time Associated Diagnosis Comments PSA SCREEN Routine 07/25/2020 9:08 AM PERSONAL INJURY LITIGATION PARALEGAL Screening for hypothyroidism Screening for hyperlipidemia Screening PSA (prostate specific antigen) Screening for hypertension Fatigue, unspecified type Class 2 obesity with body mass index (BMI) of 35.0 to 35.9 in adult, unspecified obesity type, unspecified whether serious comorbidity present COLONOSCOPY Routine 06/14/2015 from Last 3 Months or Most Recently Relevant to Health Maintenance Results * (ABNORMAL) PSA screen (07/25/2020 9:08 AM PERSONAL INJURY LITIGATION PARALEGAL) PSA 4.3(H) 0.0 - 4.0 ng/mL [facility] - 01 Comment: Corinne ECLIA methodology. According to the [place] [employer], Serum PSA should decrease and [...] disease. Blood specimen (specimen) 07/25/2020 9:08 AM PERSONAL INJURY LITIGATION PARALEGAL 07/25/2020 Narrative [facility] - 07/26/2020 9:37 AM PERSONAL INJURY LITIGATION PARALEGAL Performed at: [facility] [address] [id number] Attending Pathologist: Rick Villalta PhD, Phone: [phone] us Tigre Gardiner MD LAB BLOOD ORDERABLES Final R esult [facility] - 01 * Colonoscopy (06/14/2015) Anatomical Region Laterality Modality Other us Historical Provider ENDOSCOPY PROCEDURES Toma l Result from Last 3 Months or Most Recently Relevant to Health Maintenance Insurance [employer] OOS BLUE ACCESS OOS Care Teams Kitchen Supervisor Relationship Specialty Start Date End Date Tigre Gardiner MD [address] [facility] [address] [address] PCP - General Family Medicine 07/24/20
--- OUTSIDE RECORDS SUMMARY | 2024-11-27 08:36 | XMS_ITS | Clinical Summary ---
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
--- OUTSIDE RECORDS SUMMARY | 2024-11-27 08:36 | XMS_ITS | Encounter Summary ---
Author Organization [facility] Address [address] [place] [address] Care Team Providers Care Capital Project Engineer Name Role Phone Unavailable Primary Care Provider Unavailabl e Encounter Details Date Type Department Care Team (Late st Contact Info) Description 10/02/2024 Lab Requisition [facility] - DermPath Lab [address] [facility] [place] [address] Samantha Robledo MD [address] [facility] [address] [place] [address] Social History Tobacco Use Types Packs/Day Years Used Date Smoking Tobacco: Never Smokeless Tobacco: Never Sex and Gender Information Value Date Recorded Sex Assigned at Not on file 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 Gender Identity Not on file Sexual Orientation Not on file documented as of this encounter Plan of Treatment Not on file documented as of this encounter Procedures Procedure Name Priority Date/Time Associated Diagnosis Comments DERMATOPATHOLOGY Routine 10/02/2024 8:33 AM CDT documented in this encounter Results * DERMATOPATHOLOGY (10/02/2024 8:33 AM CDT) Case Report Dermatopathology Report Case: [id number] Authorizing Provider: Samantha Robledo MD Collected: 10/02/2024 08:33 AM Ordering Location: [facility] - Received: 10/03/2024 12:28 PM DermPath Lab Pathologist: Ariadne Lama MD Specimen: Skin, left anterior scalp 11:35 AM CDT DERMATOPATHOLOGY LABORATORY Final Diagnosis Specimen A. SKIN, left anterior scalp: SEBORRHEIC KERATOSIS, MACULAR (L82.1) 11:35 AM CDT DERMATOPATHOLOGY LABORATORY at 1135 CDT Clinical History R/O Nevus vs Lentigo vs MM 11:35 AM CDT DERMATOPATHOLOGY LABORATORY Gross Description Specimen A: Received is one formalin filled container labeled with the patient's name and designated left anterior scalp. The specimen consists of a shave biopsy measuring 50s51u4 mm. Jar 0. 11:35 AM CDT DERMATOPATHOLOGY LABORATORY Microscopic Description Specimen A. SKIN, left anterior scalp: Sections show a relatively broad, flat proliferation of small keratinocytes. The surface is gently papillated, and there is increased basilar pigmentation. 11:35 AM CDT DERMATOPATHOLOGY LABORATORY Disclaimer An external and internal positive and negative controls are appropriate for the histochemical, immunohistochemical and immunofluorescence stain(s) in this case (if any), except where stated explicitly. The performance characteristics of the stain(s) cited in this report were developed and its performance characteristic determined by the Dermatopathology Laboratory at [facility], directed by Dr. Blanca Brumfield. These tests need not be, and therefore are not, approved by the [place] Food and Drug Administration. The tests are used for clinical purposes. Billing Codes Specimen Charges Stain Charges 62673 1 11:35 AM CDT DERMATOPATHOLOGY LABORATORY Embedded Images 11:35 AM CDT DERMATOPATHOLOGY LABORATORY Pathology/Cytolo gy TISSUE SPECIMEN FROM SKIN / Unknown 10/02/2024 8:33 AM CDT 10/03/2024 12:28 PM CDT Samantha Robledo MD LAB - PATHOLOGY/CYTOLOGY OR DERABLES Final Result DERMATOPATHOLOGY LABORATORY [facility] - Department of Dermatology [address], [address] [phone] documented in this encounter Visit Diagnoses Not on filedocumented in this encounter
--- OUTSIDE RECORDS SUMMARY | 2024-11-27 08:36 | XMS_ITS | Encounter Summary ---
Author Organization [facility] Address [address] [place] [address] Care Team Providers Care Grape Cutter Name Role Phone Unavailable Primary Care Provider Unavailabl e Encounter Details Date Type Department Care Team (Late st Contact Info) Description 04/16/2006 Outpatient Historical [facility] ([facility]) [address] 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
--- OUTSIDE RECORDS SUMMARY | 2024-11-27 08:36 | XMS_ITS | CONTINUITY OF CARE DOCUMENT ---
Author Name emilie aprilskylar Address Unknown Organization [facility] Address [address] [place] [address] Phone [phone] Care Team Providers Care Rock Crushing Machine Operator Name Role Phone Chandu Echeverria MD Unavailable DOTTY MENDOSA DO Unavailable DOTTY MENDOSA DO [...] In-person encounter Office Visit Chandu Echeverria MD [facility] Office ÓSCAR--severeChest pain--stress nuc nl, echo ef nl, mild LVH, 05/2024 - In-person encounter Office Visit Chandu Echeverria MD [place] [facility] Cardiology examinationAtheroscl erosis, coronary, seen on CTFamily history of CVAOSA--severeShortn ess of breathChest pain--stress nuc nl, echo ef nl, mild LVH, 05/2024 VITAL SIGNS Date Observation Value Provider Body Mass Index (Ratio) 36.21 kg/m2 Francois Echeverria MD blood pressure, diastolic 77 mm[Hg] Evelin anne [facility] blood pressure, systolic 134 mm[Hg] Carolina atkins [facility] oxygen saturation, oximetry 96 % Mally [facility] pulse rate 60 /min Mally [facility] weight E&M 267 [lb_av] Mally [facility] height E&M 72 [in_i] [facility] Body Mass Index (Ratio) 38.02 kg/m2 Francois Echeverria MD weight E&M 280.4 [lb_av] [facility] blood pressure, diastolic 85 mm[Hg] [facility] blood pressure, systolic 122 mm[Hg] Aminata tyler Brady blood pressure, cuff size regular [facility] oxygen saturation, oximetry 94 % [facility] pulse rate 79 /min [facility] height E&M 72 [in_i] [facility] ALLERGIES Allergy Name Onset Date Reaction [...] 0-149 1 cholesterol, serum 147 mg/dL [employer] [phone]/11/0 1 alanine aminotransferase (SGPT), serum 23 1/L [...] 3.5-5.2 1 sodium, serum 141 mmol/L [employer] [phone]/11/0 1 urea nitrogen/creatinine ratio, serum 10 [employer] [...] Estab. 1 platelet count 250 X10E3/UL [employer] [phone]/11/0 1 red blood cell distribution width 13.4 [...] Payer name Policy type / Coverage type Uneeda red democrat ID [facility] Commercial insurance company [employer] [id number] ADVANCE DIRECTIVES Name Date DISCUSSED - NO [...] Echeverria MD Cardiology: O rders: E KG (CPT-16495) S [facility] Study Home (CPT-11912) C omplete Echo (06873) S tress Exercise Cardiolite (CPT-59678) C OMPREHENSIVE METABOLIC PANEL, W/EGFR (60552) L IPID PANEL (7600) H EMOGLOBIN A1c (496) C BC (INCLUDES DIFF/PLT) (6399) L ipoprotein (a) (772026) P ROBNP, N TERMINAL (45197) C RP, high sensitivity (62962) His updated medication list for this problem includes: Aspirin 81 Mg Tablet,delayed Release (dr/ec) (Aspirin) Abimael Nascimento Cardiology: O rders: C omplete Echo (27073) S tress Exercise Cardiolite (CPT-40326) C OMPREHENSIVE METABOLIC PANEL, W/EGFR (64810) L IPID PANEL (7600) H EMOGLOBIN A1c (496) C BC (INCLUDES DIFF/PLT) (6399) L ipoprotein (a) (691806) P ROBNP, N TERMINAL (56564) C RP, high sensitivity (82124) Abimael Nascimento Cardiology: O rders: C omplete Echo (31110) S tress Exercise Cardiolite (CPT-49256) C OMPREHENSIVE METABOLIC PANEL, W/EGFR (45915) L IPID PANEL (7600) H EMOGLOBIN A1c (496) C BC (INCLUDES DIFF/PLT) (6399) L ipoprotein (a) (544794) P ROBNP, N TERMINAL (30614) C RP, high sensitivity (87685) Abimael Ahmedzai Cardiology: O rders: S lee Study Home (CPT-39647) C OMPREHENSIVE METABOLIC PANEL, W/EGFR (32118) L IPID PANEL (7600) H EMOGLOBIN A1c (496) C BC (INCLUDES DIFF/PLT) (6399) L ipoprotein (a) (895082) P ROBNP, N TERMINAL (32670) C RP, high sensitivity (63103) Abimael Ahmedzai Cardiology: O rders: E KG (CPT-64153) C OMPREHENSIVE METABOLIC PANEL, W/EGFR (05377) L IPID PANEL (7600) H EMOGLOBIN A1c (496) C BC (INCLUDES DIFF/PLT) (6399) L ipoprotein (a) (373780) P ROBNP, N TERMINAL (27809) C RP, high sensitivity (34782) Abimael Ahmedzai Date Name CRP, high sensitivit [...]
--- OUTSIDE RECORDS SUMMARY | 2024-11-27 08:36 | XMS_ITS | Encounter Summary ---
Author Organization [facility] Address [address] [place] [address] Care Team Providers Care Pit Hand Name Role Phone Unavailable Primary Care Provider Unavailabl e Encounter Details Date Type Department Care Team (Late st Contact Info) Description 04/16/2006 Outpatient Historical [facility] Nikita Duncan MD [facility] [place] [address] Er, Authorized P NO ADDRESS ON FILE Unspecified Chest Pain (Primary Dx) Social History Tobacco Use Types Packs/Day Years Used Date Smoking Tobacco: Never Assessed Sex and Gender Information Value Date Recorded Sex Assigned at Not on file Legal Sex Male 3:16 AM RESOLUTION ANALYST Gender Identity Not on file Sexual Orientation Not on file documented as of this encounter Plan of Treatment Not on file documented as of this encounter Procedures Procedure Name Priority Date/Time Associated Diagnosis Comments CBC WITH DIFFERENTIAL Routine 04/16/2006 11:01 AM RESOLUTION ANALYST CBC WITH DIFFERENTIAL Routine 04/16/2006 11:01 AM RESOLUTION ANALYST documented in this encounter Results * (ABNORMAL) CBC WITH DIFFERENTIAL (04/16/2006 11:01 AM RESOLUTION ANALYST) NEUTROPHILS 78(H) 45 - 70 % INTERFAC [...] K/uL INTERFACE SYSTEM 04/16/2006 11:0 1 AM RESOLUTION ANALYST Nikita Sandoval MD HEMATOLOGY ORDERABLES Final Re sult INTERFACE SYSTEM Refer to clinic/hospital department * (ABNORMAL) CBC WITH DIFFERENTIAL (04/16/2006 11:01 AM RESOLUTION ANALYST) WBC 8.6 4.0 - 9.8 K/uL INTERFACE [...] fL INTERFACE SYSTEM 04/16/2006 11:0 1 AM RESOLUTION ANALYST Nikita Sandoval MD HEMATOLOGY ORDERABLES Final Re sult INTERFACE SYSTEM Refer to clinic/hospital department documented in this encounter Visit Diagnoses Diagnosis Chest pain, unspecified- Primary documented in this encounter
--- OUTSIDE RECORDS SUMMARY | 2024-11-27 08:36 | XMS_ITS | Clinical Summary ---
Author Organization [facility] [employer] Address [address] [place] [address] Care Team Providers Care Associate Media Director Name Role Phone Unavailable Primary Care Provider Unavailabl e Source Comments [facility],non-owned Affiliates and Associated Physician Practices is amultiple site organization consisting of ambulatory clinics and hospital sitesin [place], [place], [place] and [place]. This disclosure is being madepursuant to the Care Everywhere program and may not contain all information available regarding this patient. Last updated 18.[facility] [employer] Allergies Active Allergy Reactions Criticality Noted Date Comments Sulfa Drugs Headache 05/21/2018 Medications * Be aware that medications may not be up to date on this document. Alwaysverify current medications with the patient. 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 Gender Identity Not on file Sexual Orientation Not on file Last Filed Vital Signs Vital Sign Reading Time Taken Comments Blood Pressure 126/70 05/05/2021 11:54 AM AIRCONDITIONING PLANT OPERATOR Pulse 83 05/05/2021 11:54 AM AIRCONDITIONING PLANT OPERATOR Temperature 36.6 C (97.8 F) 05/05/2021 11:54 AM AIRCONDITIONING PLANT OPERATOR Respiratory Rate 16 05/05/2021 11:54 AM AIRCONDITIONING PLANT OPERATOR Oxygen Saturation 96% 05/05/2021 11:54 AM AIRCONDITIONING PLANT OPERATOR Inhaled Oxygen Concentration - - Weight 117.9 kg (260 lb) 05/21/2018 2:52 PM AIRCONDITIONING PLANT OPERATOR Height 182.9 cm (6') 05/21/2018 2:52 PM AIRCONDITIONING PLANT OPERATOR Body Mass Index 35.26 05/21/2018 2:52 PM AIRCONDITIONING PLANT OPERATOR Plan of Treatment Health Maintenance Due [...] Comments DERMATOPATHOLOGY Routine 10/02/2024 8:33 AM CDT from Last 3 Months Results * DERMATOPATHOLOGY (10/02/2024 8:33 AM CDT) Case Report Dermatopathology Report Case: [id number] Authorizing Provider: Samantha Robledo MD Collected: 10/02/2024 08:33 AM Ordering Location: [facility] - Received: 10/03/2024 12:28 PM DermPath Lab [...] specimen consists of a shave biopsy measuring [id number] mm. Jar 0. 11:35 AM CDT DERMATOPATHOLOGY [...] characteristic determined by the Dermatopathology Laboratory at [facility], directed by Dr. Blanca Brumfield. These tests need not be, and therefore are not, approved by the [place] Food and Drug Administration. The tests are used for clinical purposes. Billing Codes Specimen Charges Stain Charges 69841 1 11:35 AM CDT DERMATOPATHOLOGY LABORATORY Embedded Images 11:35 AM CDT DERMATOPATHOLOGY LABORATORY Pathology/Cytolo gy TISSUE SPECIMEN FROM SKIN / Unknown 10/02/2024 8:33 AM CDT 10/03/2024 12:28 PM CDT Samantha Robledo MD LAB - PATHOLOGY/CYTOLOGY OR DERABLES Final Result DERMATOPATHOLOGY LABORATORY [facility] - Department of Dermatology [facility] [address] [place], [place] [id number] [place] [address] from Last 3 Months Insurance [employer]
--- OUTSIDE RECORDS SUMMARY | 2024-11-27 08:36 | XMS_ITS | Clinical Summary ---
Author Organization [facility] Address [address] [place] [address] Care Team Providers Care Dental Scheduler Name Role Phone Tigre Gardiner MD Primary [...] on file Legal Sex Male 2:25 AM RADIO PERFORMER Gender Identity Not on file Sexual Orientation Not on file Obstetrics History Last Filed Vital Signs Vital Sign Reading Time Taken Comments Blood Pressure 135/84 08/06/2022 9:30 PM RADIO PERFORMER Pulse 69 08/06/2022 9:30 PM RADIO PERFORMER Temperature 36.4 C (97.6 F) 08/06/2022 6:27 PM RADIO PERFORMER Respiratory Rate 20 08/06/2022 9:30 PM RADIO PERFORMER Oxygen Saturation 95% 08/06/2022 9:30 PM RADIO PERFORMER Inhaled Oxygen Concentration - - Weight 126.2 kg (278 lb 3.2 oz) 021 11:08 AM RADIO PERFORMER Height 188 cm (6' 2) 07/24/2020 11:08 AM RADIO PERFORMER Body Mass Index 35.72 07/24/2020 11:08 AM RADIO PERFORMER Plan of Treatment Health Maintenance Due Date Last Done Comments Hepatitis C Screening 1960 DTaP/Tdap/Td Vaccine (1 - Tdap) 01/24/1971 Hepatitis B Screening 01/24/1978 Regular Well Visit/Exam 18-64 01/24/1978 Zoster Vaccine (1 of 2) 01/24/2010 Depression Screening 07/24/2021 07/24/2020 Prostate Cancer Screening-PSA 07/25/2022 07/25/2020 Influenza Vaccine (Season Ended) 2025 04/06/2020, 03/04/2019, 03/05/2018, Additional history exists Colon Cancer Screening-Colonoscopy 06/14/2025 06/14/2015 Colon Cancer Screening-CT Colonography Discontinued 06/14/2015 Colon Cancer Screening-DNA Stool Discontinued 06/14/2015 Colon Cancer Screening-FIT Discontinued 06/14/2015 Colon Cancer Screening-Sigmoidoscopy Discontinued 06/14/2015 Pneumococcal vaccine <65 Aged Out No longer eligible based on patient's age to complete this topic Procedures Procedure Name Priority Date/Time Associated Diagnosis Comments PSA SCREEN Routine 07/25/2020 9:08 AM RADIO PERFORMER Screening for hypothyroidism Screening for hyperlipidemia Screening PSA (prostate specific antigen) Screening for hypertension Fatigue, unspecified type Class 2 obesity with body mass index (BMI) of 35.0 to 35.9 in adult, unspecified obesity type, unspecified whether serious comorbidity present COLONOSCOPY Routine 06/14/2015 from Last 3 Months or Most Recently Relevant to Health Maintenance Results * (ABNORMAL) PSA screen (07/25/2020 9:08 AM RADIO PERFORMER) Pathologist [facility] PSA 4.3(H) 0.0 - 4.0 ng/mL [facility] - Comment: Corinne ECLIA methodology. According to the [employer] [employer], Serum PSA should decrease and [...] disease. Blood specimen (specimen) 07/25/2020 9:08 AM RADIO PERFORMER 07/25/2020 Narrative [facility] - 07/26/2020 9:37 AM RADIO PERFORMER Performed at: - [facility] [id number] Staple Fiber Washer: Rick Villalta PhD, Phone: [phone] us Tigre Gardiner MD LAB BLOOD ORDERABLES Final R esult [facility] - * Colonoscopy (06/14/2015) Anatomical Region Laterality Modality Other us Historical Provider ENDOSCOPY PROCEDURES Toma l Result from Last 3 Months or Most Recently Relevant to Health Maintenance Insurance BLUE ACCESS OOS BLUE ACCESS OOS BLUE ACCESS OOS Care Teams Dental Scheduler Relationship Specialty Start Date End Date Tigre Gardiner MD [address] [place] [address] PCP - General Family Medicine 07/24/20
--- OUTSIDE RECORDS SUMMARY | 2024-11-27 08:36 | XMS_ITS | Encounter Summary ---
Author Organization [facility] Address [address] [place] [address] Care Team Providers Care Hammer Driver Name Role Phone Unavailable Primary Care Provider Unavailabl e Encounter Details Date Type Department Care Team (Late st Contact Info) Description 04/16/2006 Outpatient Historical [facility] ([facility]) [address] 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
[2024-11-27 09:37] LABS: Basophils Absolute Auto 0.1 K/mm3 (0.0-0.1); Basophils Percent Auto 1.1 % (0.2-1.2); Eosinophils Absolute Auto 0.5 K/mm3 (0-0.3); Eosinophils Percent Auto 6.4 % (0-4.4); Hematocrit 46.8 % (42.0-52.0); Hemoglobin 15.2 g/dL (14.0-18.0); Immature Granulocyte Absolute 0.03 K/mm3 (0.00-0.031); Immature Granulocyte Percent A 0.4 % (0-0.5); Lymphocytes Absolute Auto 1.45 K/mm3 (0.9-3.2); Lymphocytes Percent Auto 20.1 % (18.3-44.2); Mean Corpuscular HGB Conc 32.5 g/dl (32-36); Mean Corpuscular Volume 86.2 fl (80-100); Monocytes Absolute Auto 0.7 K/mm3 (0.1-0.6); Monocytes Percent Auto 10.1 % (2.6-8.5); Neutrophils Absolute Auto 4.5 K/mm3 (1.3-6.7); Neutrophils Percent Auto 61.9 % (45.5-73.1); Platelet Count Result 202 k/mm3 (150-375); Red Blood Count 5.43 M/mm3 (4.6-6.20); Red Cell Distribution Width 13.1 % (11.5-14.5); White Blood Count 7.2 K/mm3 (4.5-10.0)
== END 2024-11-27 08:23 | disposition home or self-care (01) ==
LOC: ANHSURGERY 08:27
PROVIDERS: PCP Internal Medicine; Visit Provider Surgery
DX: R10.31 Right lower quadrant pain (principal); Z98.890 Other specified postprocedural states; Z87.19 Personal history of other diseases of the digestive system
CPT/HCPCS: 36415; 85025

== ENCOUNTER 2024-11-29 09:46 | Outpatient (CLI) | payer OTHER, SELFPAY ==
--- NOTE | ~2024-11-29 | CT_ITS ---
Non-contrast CT scan of the Abdomen and Pelvis Clinical indication: Pain, prior hernia repair Technique: 2.5 mm axial scans were obtained through the abdomen and pelvis without intravenous or or al contrast. Dose reduction technique was used on this scan by utilizing automated exposure control a nd iterative reconstruction technique. The dose-length product (DLP) was 1173.76 mGy-cm. COMPARISON: 12/12/2023 Findings: Images through the lung bases reveal no abnormalities. There is no evidence of renal or ureteral calculi. The kidneys and the ureters are nondilated. The liver, spleen, pancreas, and adrenals appear normal. Cholecystectomy clips are present. There is no aortic aneurysm. There is no evidence of bowel obstruction. Images through the pelvis were performed. There is no evidence of ascites or lymphadenopathy. Urinary bladder unremarkable. Prostate gland is enlarged. There are bilateral fat-containing inguinal hernia s, left larger than right. Impression: Bilateral fat-containing inguinal hernias, left larger than right. Enlarged prostate gland. Reviewed, dictated and finalized at location . Impression: Bilateral fat-containing inguinal hernias, left larger than right. Enlarged prostate gland.
== END 2024-11-29 09:47 | disposition home or self-care (01) ==
LOC: MICIMG 09:47
PROVIDERS: PCP Internal Medicine; Visit Provider Surgery
DX: K40.20 Bilateral inguinal hernia, without obstruction or gangrene, not specified as recurrent (principal); R10.31 Right lower quadrant pain; Z87.19 Personal history of other diseases of the digestive system; Z98.890 Other specified postprocedural states; N40.0 Benign prostatic hyperplasia without lower urinary tract symptoms
CPT/HCPCS: 74176

== ENCOUNTER 2024-12-13 10:00 | Outpatient (RCR) | payer OTHER, SELFPAY ==
--- NOTE | 2024-12-05 15:20 | OPREHPOC ---
Outpatient Therapy Plan of Care This is a Multidisciplinary Plan of Care that may contain components documented by all disciplines (PT, OT, and ST.) PT Problem 1 PT Problem #1 Knowledge Deficit PT Goal 1 Goal / Goal Update Patient to demonstrate independence with HEP for improved self-reliance of symptom management. Target Visit 3 PT Problem 2 PT Problem #2 Pain PT Goal 1 Goal / Goal Update Patient to decrease subjective reports of pain to <4/10 with prolonged walking for improved ADL tolerance. Target Visit 6 PT Problem 3 PT Problem #3 Impaired Strength PT Goal 1 Goal / Goal Update Patient to demonstrate R hip strength >=5/5 for improved functional stability required for ADLs. Target Visit 6 PT Problem 4 PT Problem #4 Impaired Range of Motion PT Goal 1 Goal / Goal Update Pt to demonstrate an increase of R hip IR AROM of 30 degrees to improve LE dressing. Target Visit 6
--- NOTE | 2024-12-05 15:21 | PTOPEVAL1 ---
Assessment and note entered by Jennifer Roth, PT Evaluation Information Assessment Status Evaluation Subjective Information Pt presents s/p Right inguinal hernia repair on 04/07. Pt reports no complications with his surgery. He was doing really well since surgery and was about to go back to work. He was about 4-6 weeks after surgery when he got up from his recliner and felt a severe pain in the front of his abdomen on the R side of his belly button. He immediately though something was wrong so he call his doctor and they were supposed to redo his surgery last week. However, they were not sure it was the same issue so they cancelled his surgery and ordered a CT scan. Pt needs to get back to work, ADLS and IADLS. He wears support underwear to help with this pain. He is climbing inside equipment, getting down the ground, prolonged walking and standing. he notes an increase in pain wiht prolonged standing and walking, can have pain radiate into the testicle and anterior thigh. Reported Pain Level Pain Score 0: Self Report Assessment PT Clinical Summary Pt is a 64 year old male who presents to physical therapy with a primary complaint of R lower quadrant pain following inguinal hernia repair. Pt demonstrates R hip weakness, pain, decreased standing and walking tolerance, abnormal posture, and decreased flexibility that limit their ability to perform ADLs. Pt will benefit from skilled physical therapy to address the above listed deficits and return to PLOF. HEP instructed and written handout provided, EX tolerated well with no adverse effects to note post-session. Pt was educated on importance of adherence to HEP. Pt was also educated on anatomy, prognosis, home modalities, and PT POC. Pt educated on the importance of reducing the strain on the abdominal musculature post hernia repair and was provided instructions against excessive bending, lifting, and twisting. Plan of Care Interventions Gait Training,Hot Pack/Cold Pack,Manual Therapy, Neuro Re-education,Therapeutic Activities, Therapeutic Exercise PT Services Indicated Yes Treatment Frequency and 1x/wk for 6 sessions Duration These treatments will address the objective and functional deficits as defined above. The patient will be advanced safely and appropriately in order for the patient to progress towards his/her prior level of function. Additional exercises will be introduced and as well as a comprehensive home exercise program upon discharge, if needed, ?to ensure carryover of functional gains achieved in the clinic. This treatment plan has been reviewed and agreement upon by the patient.
--- NOTE | 2024-12-19 13:50 | PTOPDC ---
Assessment and note entered by Jennifer Roth, PT Evaluation Information Assessment Status Discharge - Pt Not Present Subjective Information Pt will have upcoming hernia repair surgery. Assessment PT Clinical Summary Pt called the clinic to report he is having hernia repair surgery again. He was informed his current case will be discharged at this time. He was coming in for unremitting groin pain and reports he is hopeful this upcoming surgery will take care of that and he will not need to return to PT. Pt educated he would need a new PT order from his physician to return to therapy post op. Plan of Care PT Services Indicated Yes
== END 2024-12-20 11:43 | disposition home or self-care (01) ==
LOC: ANHGOSHPT 10:00
PROVIDERS: PCP Internal Medicine; Visit Provider Surgery
DX: R10.31 Right lower quadrant pain (principal); Z98.890 Other specified postprocedural states; Z87.19 Personal history of other diseases of the digestive system
CPT/HCPCS: 97110; 97161; 97530

== ENCOUNTER 2025-02-21 08:00 | Outpatient (RCR) | payer OTHER, SELFPAY ==
--- NOTE | 2025-01-17 11:01 | OPREHPOC ---
Outpatient Therapy Plan of Care This is a Multidisciplinary Plan of Care that may contain components documented by all disciplines (PT, OT, and ST.) PT Problem 1 PT Problem #1 Knowledge Deficit PT Goal 1 Goal / Goal Update *iindependent with HEP Target Visit 6 PT Problem 2 PT Problem #2 Pain PT Goal 1 Goal / Goal Update 1* pt report pain rating of 3/10 at worst 2* pt report walking/standing tolerance of 75 minutes Target Visit 6 PT Problem 3 PT Problem #3 Impaired Strength PT Goal 1 Goal / Goal Update increase strength of trunk and hips to gross 4+ /5, to improve stability to abdomen and area of hernia Target Visit 6
--- NOTE | 2025-01-17 11:02 | PTOPEVAL1 ---
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, climbing on ladders & scaffolds; currently not working, not worked since hernia surgery in September 2024; Reported Pain Level Pain Score Self Report Additional Pain Score Comments pain range in the past week 0- 5/10 dull ache in R anterior hip crease and medial groin, pressure on testicle with sometimes swelling over testicle increase pain: walking/standing 30- 60 minutes; lifting, physical work, yard work decrease pain: sit, rest, meloxicam PRN, ice PRN have tighter briefs and they tend to help sleeping is OK Assessment PT Clinical Summary Armond has the diagnosis of R lower abdominal pain s/p R inguinal hernia repair. Continues to have pain and issues, going to see a hernia specialist for possible need for additional repair. LE functional scale rating of 44% limitation in activity level. He is currently off work and has a 20# lifting restriction. He has not been doing any exercises at home and is doing most of the home chores. Walking and standing activity tolerance about 30-60 minutes before pain increases. With the evaluation: pain over R lower abdomen, anterior crease of hip and groin areas; weakness over trunk and hips; supine to side lying on his R is the only motion that increased his abdominal pain; 6 minute walk test distance of 1425' with increased SOB. Medical history: chronic low back pain, diabetes. Skilled PT services are indicated for therapeutic exercises and activities to increase strengthen of trunk and hips; education for HEP and use of modalities PRN for pain. Plan of Care Interventions Hot Pack/Cold Pack,Manual Therapy,Neuro Re- education,Patient/Caregiver Education,Therapeutic Activities,Therapeutic Exercise,Other Other Interventions taping PT Services Indicated Yes Treatment Frequency and 1x/wk for 6 visits Duration These treatments will address the objective and functional deficits as defined above. The patient will be advanced safely and appropriately in order for the patient to progress towards his/her prior level of function. Additional exercises will be introduced and as well as a comprehensive home exercise program upon discharge, if needed, ?to ensure carryover of functional gains achieved in the clinic. This treatment plan has been reviewed and agreement upon by the patient.
--- NOTE | 2025-02-21 08:28 | OPREHPOC ---
Outpatient Therapy Plan of Care This is a Multidisciplinary Plan of Care that may contain components documented by all disciplines (PT, OT, and ST.) PT Problem 1 PT Problem #1 Knowledge Deficit PT Goal 1 Goal / Goal Update *iindependent with HEP 02-21-25 d/c goal met Target Visit 6 Progress Met PT Problem 2 PT Problem #2 Pain PT Goal 1 Goal / Goal Update 1* pt report pain rating of 3/10 at worst 2* pt report walking/standing tolerance of 75 minutes 02-21-25 d/c goals not met: #1 6/10 and #2 60 minutes Target Visit 6 Progress Not Met PT Problem 3 PT Problem #3 Impaired Strength PT Goal 1 Goal / Goal Update increase strength of trunk and hips to gross 4+ /5, to improve stability to abdomen and area of hernia 02-21-25 d/c goal not met, 4/5 due to pain Target Visit 6 Progress Not Met
--- NOTE | 2025-02-21 08:28 | PTOPDC ---
Assessment and note entered by Haily Jack, PT Assessment Status Discharge Onset R10.30 lower abdominal pain Subjective Information have appt with specialist at [facility] Apr 04 and cannot get in any earlier than that; when getting up out of recliner, feel like I made the hernia worse and pulled something; worse since then. Therapy did not really help for my pain. Have been doing the exercises and moving around as I can. Just waiting to get into the hernia specialist and get surgery. Reported Pain Level Pain Score Self Report Additional Pain Score Comments pain range of 3-6/10 in the past week-- R inner groin area and testicles swollen; reported tolerance with standing/walking about 1 hour; increase pain: lifting more than 5-10#; decrease pain: sit, rest, compression briefs oxycodone- PRN, help some/ meloxicam not help still working, but having more pain with work. is not using ice, instructed on PRN use of ice 10- 15 minutes Assessment PT Clinical Summary Armond has received a total of 6 PT sessions. Compared to the initial evaluation: pain from 0-5/ 10 to 3-6/10; self assessment with LE functional scale 44 to 51% limitation in activity level; reported time with standing/walking activity from 30-60 minutes to 60 minutes at most; education completed for HEP, pain management with compression briefs, ice, positional changes. The goals were partially met. Discharge PT services. He is to see the hernia specialist in March about surgery. Plan of Care PT Services Indicated No
== END 2025-02-21 10:42 | disposition home or self-care (01) ==
LOC: ANHPT 08:00
PROVIDERS: PCP Internal Medicine; Visit Provider Surgery
DX: R10.30 Lower abdominal pain, unspecified (principal)
CPT/HCPCS: 97110; 97161; 97530

== ENCOUNTER 2025-03-01 16:46 | Emergency (ER) | payer OTHER, SELFPAY ==
--- NOTE | ~2025-03-01 | XR_ITS ---
EXAMINATION: XR foot LT min 3V, 03/01/2025 17:05 CDT HISTORY: FALL YESTERDAY IS NOW HAVING NON SPECIFIC LEFT COMPARISON: No comparisons available. Findings: No acute fracture or malalignment. No significant degenerative changes. Soft tissues unremarkable. Impression: No acute fracture or malalignment. Reviewed, dictated and finalized at location A. Impression: No acute fracture or malalignment.
[2025-03-01 17:12] VITALS: BP 128/73; PULSE 77; RESP 16; TEMP 36.9; O2SAT 97
--- NOTE | 2025-03-01 17:22 | ED.FALL ---
HPI - Fall General Chief Complaint: Fall <Brooke Green APRN - Last Filed: 03/01/25 17:23> Stated Complaint: left foot injury <Brooke Green APRN - Last Filed: 03/01/25 17:23> Time Seen by Provider: 03/01/25 17:22 <Brooke Green APRN - Last Filed: 03/01/25 17:23> Focused HPI: Patient is a 65-year-old female who presents to the ER with complaints of left foot pain. He reports he was getting out of bed last night and his left leg was numb which caused him to fall and hit his leg twice on the nightstand. Patient endorses pain to the top and bottom of his left foot. He endorses a history of prediabetes, cholecystectomy, and hernia repair. Patient denies any calf pain, extreme swelling, or inability to move his toes. GENERAL: Well-appearing, obese, and in no acute distress. HEAD: Normocephalic, atraumatic. CHEST: Clear to auscultation. ?No respiratory distress. HEART: Regular rate and rhythm.? NEURO: ?Alert and oriented x3. Patient screened in triage and initial orders placed.? ?Additional care and disposition to be based upon?diagnostic testing and treatment. <Brooke Green APRN - Last Filed: 03/01/25 17:23> Source: patient <John Haddad MD - Last Filed: 03/01/25 20:07> Mode of arrival: ambulatory <John Haddad MD - Last Filed: 03/01/25 20:07> Limitations: no limitations <John Haddad MD - Last Filed: 03/01/25 20:07> History of Present Illness HPI Narrative: 65-year-old with a history of hypercholesteremia here with the complaints of left foot pain and swelling. Patient states that his left leg when asleep and advised to stand lost his balance and hit is foot against the night stand twice <John Haddad MD - Last Filed: 03/01/25 20:07> Onset (ago): day(s) <John Haddad MD - Last Filed: 03/01/25 20:07> Fall from: standing <John Haddad MD - Last Filed: 03/01/25 20:07> Place fall occurred: home <John Haddad MD - Last Filed: 03/01/25 20:07> Loss of consciousness: none <John Haddad MD - Last Filed: 03/01/25 20:07> Related Data Home Medications: Home Medications ?Medication ?Instructions ?Recorded ?Confirmed ?Last Taken ?Type aspirin 81 mg tablet,delayed 81 mg PO DAILY 05/08/24 12/18/24 Unknown History release (Adult Low Dose Aspirin) bempedoic acid 180 mg tablet 180 mg PO DAILY 12/11/24 12/20/24 Unknown History (Nexletol) <Brooke Green, COUNTERINTELLIGENCE/HUMINT SPECIALIST - Last Filed: 03/01/25 17:23> Allergies/Adverse Reactions: Allergies Allergy/AdvReac Type Severity Reaction Status Date / Time Sulfa (Sulfonamide Allergy Mild Hives Verified 12/20/24 09:22 Antibiotics) sulfanilamide Allergy Mild Hives Verified 12/20/24 09:22 atorvastatin AdvReac Dizziness Verified 12/20/24 09:22 AND PAIN IN RT LOWER BACK <Brooke Green, COUNTERINTELLIGENCE/HUMINT SPECIALIST - Last Filed: 03/01/25 17:23> Review of Systems Review of Systems: All systems reviewed & are unremarkable except as noted in HPI and below <John Haddad MD - Last Filed: 03/01/25 20:07> Constitutional: Constitutional: Reports no additional constitutional complaints <John Haddad MD - Last Filed: 03/01/25 20:07> Eyes: Eyes: Reports no additional eye complaints <John Haddad MD - Last Filed: 03/01/25 20:07> ENT: Reports system reviewed and no additional complaints, except as documented <John Haddad MD - Last Filed: 03/01/25 20:07> Cardiovascular: Cardiovascular: Reports no additional cardiovascular complaints <John Haddad MD - Last Filed: 03/01/25 20:07> Respiratory: Respiratory: Reports no additional respiratory complaints <John Haddad MD - Last Filed: 03/01/25 20:07> Gastrointestinal: Gastrointestinal: Reports no additional gastrointestinal complaints <John Haddad MD - Last Filed: 03/01/25 20:07> Musculoskeletal: Musculoskeletal: Reports as per HPI <John Haddad MD - Last Filed: 03/01/25 20:07> Neurologic: Reports system reviewed and no additional complaints, except as documented <John Haddad MD - Last Filed: 03/01/25 20:07> PMFSH Past Medical History Medical History: Medical History Diabetes mellitus Hyperlipidemia Gastroesophageal reflux disease Hypertension Not currently on medication. <Brooke Green COUNTERINTELLIGENCE/HUMINT SPECIALIST - Last Filed: 03/01/25 17:23> Surgical History Surgical History: Surgical History Hx of inguinal hernia repair 09/22/24 Robotic laparoscopic repair right inguinal hernia with mesh Dr. Scott History of breast lump/mass excision History of laparoscopic cholecystectomy History of tonsillectomy <Brooke Green COUNTERINTELLIGENCE/HUMINT SPECIALIST - Last Filed: 03/01/25 17:23> Family History Family History: Family History Father Cerebrovascular accident Family history of diabetes mellitus in first degree relative Sibling Family history of diabetes mellitus in first degree relative Mother Cancer <Brooke Green COUNTERINTELLIGENCE/HUMINT SPECIALIST - Last Filed: 03/01/25 17:23> Social History Social History: Social History Social History: Surrogate medical decision maker: Bailey Edwards, spouse. Code status: Full code. Smoking packs per day: 2 Smoking cigarettes per day: 40.0 Years smoked: 10 Smoking pack-years: 20.00 Smoking status: Former smoker Tobacco type: cigarettes Smoking end date: 06/14/91 Alcohol intake: current Drinks per week: 2 Substance use type: does not use Do You Feel Safe in your Home?: Yes Lack of Transportation: No Lack of Food: Never True Current Housing: I Have Housing Concerned About Future Housing: No Difficulty Paying Gas/Electric Bills: No Difficulty Paying for Meds: No Currently Unemployed: No Education: Trade/Vocational Certificate Difficulty w/ Childcare or Family Care: No Living arrangements: with family Spiritual care concerns: No <Brooke Green, COUNTERINTELLIGENCE/HUMINT SPECIALIST - Last Filed: 03/01/25 17:23> Exam Narrative: GENERAL: Well-appearing, well-nourished, and in no acute distress. HEAD: Normocephalic, atraumatic. EYES: PERRLA and EOMI. ENT: Nares clear, no rhinorrhea or epistaxis. Mucous membranes moist. NECK: Supple. CHEST: Clear to auscultation. No respiratory distress. HEART: Regular rate and rhythm. No murmur heard. Normal peripheral pulses. EXTREMITIES: Normal range of motion. No edema. left foot normal appearance ,no sign of trauma SKIN: Warm, dry, no rash. NEURO: No focal deficits. Alert and oriented x3. PSYCH: Normal mood and affect. <John Haddad MD - Last Filed: 03/01/25 20:07> Course Vital Signs Vital signs: Vital Signs Temperature 36.9 C 03/01/25 17:12 Pulse Rate 77 03/01/25 17:12 Respiratory Rate 16 03/01/25 17:12 Blood Pressure 128/73 03/01/25 17:12 Pulse Oximetry 97 03/01/25 17:12 Temperature 36.9 C 03/01/25 17:12 Pulse Rate 77 03/01/25 17:12 Respiratory Rate 16 03/01/25 17:12 Blood Pressure 128/73 03/01/25 17:12 Pulse Oximetry 97 03/01/25 17:12 <Brooke Green, COUNTERINTELLIGENCE/HUMINT SPECIALIST - Last Filed: 03/01/25 17:23> Vital Signs Temperature 36.9 C 03/01/25 17:12 Pulse Rate 77 03/01/25 17:12 Respiratory Rate 16 03/01/25 17:12 Blood Pressure 128/73 03/01/25 17:12 Pulse Oximetry 97 03/01/25 17:12 Temperature 36.9 C 03/01/25 17:12 Pulse Rate 77 03/01/25 17:12 Respiratory Rate 16 03/01/25 17:12 Blood Pressure 128/73 03/01/25 17:12 Pulse Oximetry 97 03/01/25 17:12 <John Haddad MD - Last Filed: 03/01/25 20:07> MDM - Fall Differential Diagnosis Differential diagnosis: Likely other (foot sprain , fx foot) <John Haddad MD - Last Filed: 03/01/25 20:07> Medical Records Attestation: I reviewed the patient's medical records. <John Haddad MD - Last Filed: 03/01/25 20:07> Imaging Data Radiologist's impression: ITS Impressions Foot X-Ray 03/01/25 17:12 Impression: No acute fracture or malalignment. <John Haddad MD - Last Filed: 03/01/25 20:07> Discharge Plan Discharge Clinical Impression: Contusion of foot, left Qualifiers: Encounter type: initial encounter Qualified Code(s): S90.32XA - Contusion of left foot, initial encounter <Brooke Green APRN - Last Filed: 03/01/25 17:23> Patient Disposition: Home <Brooke Green APRN - Last Filed: 03/01/25 17:23> Condition: Stable <Brooke Green APRN - Last Filed: 03/01/25 17:23> Instructions: Contusion in Adults (ED) <Brooke Green APRN - Last Filed: 03/01/25 17:23> Patient Language: [place] <Brooke Green APRN - Last Filed: 03/01/25 17:23> Prescriptions: New naproxen 500 mg tablet 500 mg PO BID PRN (Reason: pain) Qty: 14 0RF No Action Nexletol 180 mg tablet 180 mg PO DAILY aspirin [Adult Low Dose Aspirin] 81 mg tablet,delayed release (DR/EC) 81 mg PO DAILY meloxicam 7.5 mg tablet See Rx Instructions .ROUTE .COMPLEX Qty: 30 3RF Dose Instruction: TAKE 1 TABLET BY MOUTH DAILY Rx Instructions: TAKE 1 TABLET BY MOUTH DAILY <Brooke Green APRN - Last Filed: 03/01/25 17:23> Follow-up/Referrals: Francois Zimmer DO [Primary Care Provider, Internal Medicine] <Brooke Green APRN - Last Filed: 03/01/25 17:23> Time of Disposition: 20:06 <Brooke Green APRN - Last Filed: 03/01/25 17:23> 20:06 <John Haddad MD - Last Filed: 03/01/25 20:07>
--- OUTSIDE RECORDS SUMMARY | 2025-03-01 19:56 | XMS_ITS | Clinical Summary ---
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
--- OUTSIDE RECORDS SUMMARY | 2025-03-01 19:56 | XMS_ITS | Encounter Summary ---
Author Organization [facility] Address 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 Gender Identity Not on file Sexual Orientation Not on file documented as of this encounter Plan of Treatment Not on file documented as of this encounter Procedures Procedure Name Priority Date/Time Associated Diagnosis Comments CBC WITH DIFFERENTIAL Routine 04/16/2006 11:01 AM DRAWBENCH OPERATOR HELPER CBC WITH DIFFERENTIAL Routine 04/16/2006 11:01 AM DRAWBENCH OPERATOR HELPER documented in this encounter Results * (ABNORMAL) CBC WITH DIFFERENTIAL (04/16/2006 11:01 AM DRAWBENCH OPERATOR HELPER) NEUTROPHILS 78(H) 45 - 70 % INTERFAC [...] K/uL INTERFACE SYSTEM 04/16/2006 11:0 1 AM DRAWBENCH OPERATOR HELPER Nikita Sandoval MD HEMATOLOGY ORDERABLES Final Re sult INTERFACE SYSTEM Refer to clinic/hospital department * (ABNORMAL) CBC WITH DIFFERENTIAL (04/16/2006 11:01 AM DRAWBENCH OPERATOR HELPER) WBC 8.6 4.0 - 9.8 K/uL INTERFACE [...] fL INTERFACE SYSTEM 04/16/2006 11:0 1 AM DRAWBENCH OPERATOR HELPER Nikita Sandoval MD HEMATOLOGY ORDERABLES Final Re sult INTERFACE SYSTEM Refer to clinic/hospital department documented in this encounter Visit Diagnoses Diagnosis Chest pain, unspecified- Primary documented in this encounter
--- OUTSIDE RECORDS SUMMARY | 2025-03-01 19:56 | XMS_ITS | Encounter Summary ---
Author Organization [facility] Address [address] [facility] [place] [address] Care Team Providers Care Transitional Living Specialist Name Role Phone Unavailable Primary Care Provider Unavailabl e Encounter Details Date Type Department Care Team (Late st Contact Info) Description 10/02/2024 Lab Requisition [facility] - DermPath Lab [address] [facility] [address] [place] [address] Samantha Robledo MD [address] 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 Gender Identity Not on file Sexual Orientation Not on file documented as of this encounter Plan of Treatment Not on file documented as of this encounter Procedures Procedure Name Priority Date/Time Associated Diagnosis Comments DERMATOPATHOLOGY Routine 10/02/2024 8:33 AM CDT documented in this encounter Results * DERMATOPATHOLOGY (10/02/2024 8:33 AM CDT) Case Report Dermatopathology Report Case: [id number] Authorizing Provider: Samantha Robledo MD Collected: 10/02/2024 08:33 AM Ordering Location: [facility] - Received: 10/03/2024 12:28 PM DermPath Lab [...] specimen consists of a shave biopsy measuring [id number] mm. Jar 0. 11:35 AM CDT DERMATOPATHOLOGY [...] characteristic determined by the Dermatopathology Laboratory at [facility], directed by Dr. Blanca Brumfield. These tests need not be, and therefore are not, approved by the [place] Food and Drug Administration. The tests are used for clinical purposes. Billing Codes Specimen Charges Stain Charges 48101 1 11:35 AM CDT DERMATOPATHOLOGY LABORATORY Embedded Images 11:35 AM CDT DERMATOPATHOLOGY LABORATORY Pathology/Cytolo gy TISSUE SPECIMEN FROM SKIN / Unknown 10/02/2024 8:33 AM CDT 10/03/2024 12:28 PM CDT Samantha Robledo MD LAB - PATHOLOGY/CYTOLOGY OR DERABLES Final Result DERMATOPATHOLOGY LABORATORY [facility] - Department of Dermatology [address], [address] [phone] documented in this encounter Visit Diagnoses Not on filedocumented in this encounter
--- OUTSIDE RECORDS SUMMARY | 2025-03-01 19:56 | XMS_ITS | Clinical Summary ---
Author Organization [facility] Address [address] [place] [place] [address] Care Team Providers Care Housekeeping Associate Name Role Phone Unavailable Primary Care Provider Unavailabl e Source Comments [facility]non-owned Affiliates and Associated Physician Practices is amultiple site organization consisting of ambulatory clinics and hospital sitesin [place], [place], [place] and [place]. This disclosure is being madepursuant to the Care Everywhere program and may not contain all information available regarding this patient. Last updated 18.[facility] Allergies Active Allergy Reactions Criticality Noted Date Comments Sulfa Drugs Headache 05/21/2018 Medications * Be aware that medications may not be up to date on this document. Alwaysverify current medications with the patient. No known medications Immunizations Immunization Administration Dates Next Due Covid [...] on file Legal Sex Male 6:27 PM RN STAFF Gender Identity Not on file Sexual Orientation Not on file Last Filed Vital Signs Vital Sign Reading Time Taken Comments Blood Pressure 126/70 05/05/2021 11:54 AM RN STAFF Pulse 83 05/05/2021 11:54 AM RN STAFF Temperature 36.6 C (97.8 F) 05/05/2021 11:54 AM RN STAFF Respiratory Rate 16 05/05/2021 11:54 AM RN STAFF Oxygen Saturation 96% 05/05/2021 11:54 AM RN STAFF Inhaled Oxygen Concentration - - Weight 117.9 kg (260 lb) 05/21/2018 2:52 PM RN STAFF Height 182.9 cm (6') 05/21/2018 2:52 PM RN STAFF Body Mass Index 35.26 05/21/2018 2:52 PM RN STAFF Plan of Treatment Health Maintenance Due Date [...] 01/24/2010 ZOSTER VACCINE (1 of 2) 01/24/2010 DEPRESSION SCREENING 06/14/2024 COVID-19 VACCINE ( - season) 2025 10/11/2021, 10/19/2020, 10/05/2020 INFLUENZA VACCINE (#1) 2025 , 04/06/2020, 03/04/2019, Additional history exists Respiratory Syncytial [...]
--- OUTSIDE RECORDS SUMMARY | 2025-03-01 19:56 | XMS_ITS | Clinical Summary ---
Author Organization [facility] Address [address] [place] [address] Care Team Providers Care Kiosk Sales Representative Name Role Phone Unavailable Primary Care Provider [...] Colorectal Cancer Screening Colonoscopy (10 Years) 1960 Hepatitis C 01/24/1978 DTaP, Tdap and Td Vaccines ( 1 - Tdap) 01/24/1979 Pneumococcal Vaccine: 50+ Ye ars (1 of 1 - PCV) 01/24/2010 Zoster Vaccines (1 of 2) 01/24/2010 COVID-19 Vaccine (1 - 2023-2 5 season) 2025 RSV Immunization or 60+ Years (1 - [...]
--- OUTSIDE RECORDS SUMMARY | 2025-03-01 19:56 | XMS_ITS | Encounter Summary ---
Author Organization [facility] Address [address] [place] [address] Care Team Providers Care Quality Assurance Specialist Name Role Phone Unavailable Primary Care Provider Unavailabl e Encounter Details Date Type Department Care Team (Late st Contact Info) Description 04/16/2006 Outpatient Historical [facility] ([facility]t [facility]iology[facility]) [address] [place] [address] Nikita Carrera MD NO ADDRESS ON FILE Social History Tobacco Use Types Packs/Day Years Used Date Smoking Tobacco: Never Assessed Sex and Gender Information Value Date Recorded Sex Assigned at Not on file Legal Sex Male 3:16 AM MANAGER CREATIVE Gender Identity Not on file Sexual Orientation Not on file documented as of this encounter Plan of Treatment Not on file documented as of this encounter Visit Diagnoses Not on filedocumented in this encounter
--- OUTSIDE RECORDS SUMMARY | 2025-03-01 19:56 | XMS_ITS | Encounter Summary ---
Author Organization [facility] Address [address] [place] [address] Care Team Providers Care Fiber Heel Piece Shaper Name Role Phone Unavailable Primary Care Provider Unavailabl e Encounter Details Date Type Department Care Team (Late st Contact Info) Description 04/16/2006 Outpatient Historical [facility] ([facility]t [facility]iology[facility]) [address] [place] [phone] Nikita Carrera MD NO ADDRESS ON FILE Social History Tobacco Use Types Packs/Day Years Used Date Smoking Tobacco: Never Assessed Sex and Gender Information Value Date Recorded Sex Assigned at Not on file Legal Sex Male 3:16 AM SEISMOGRAPH CHIEF Gender Identity Not on file Sexual Orientation Not on file documented as of this encounter Plan of Treatment Not on file documented as of this encounter Visit Diagnoses Not on filedocumented in this encounter
--- OUTSIDE RECORDS SUMMARY | 2025-03-01 19:56 | XMS_ITS | Clinical Summary ---
Author Organization [facility] Address [address] [place] [address] Care Team Providers Care Concrete Swimming Pool Installer Name Role Phone Tigre Gardiner MD Primary Care Provider [phone] Allergies Active Allergy Reactions Criticality Noted Date [...] right knee 09/26/2018 Induratio penis plastica 10/24/2008 Encounters Date Type Department Care Team Description 2025 12:41 PM CDT - 2025 11:59 PM CDT Hospital Encounter [facility] [address] [place] [address] Discharge Disposition: Discharge to home or self care 2025 12:41 PM CDT - 2025 11:59 PM CDT Hospital Encounter [facility]) [address] [place] [address] Discharge Disposition: Discharge to home or self care 2025 12:40 PM CDT - 2025 11:59 PM CDT Hospital Encounter [facility] ([facility]) [address] [place] [address] Discharge Disposition: Discharge to home or self care 2025 12:39 PM CDT - 2025 11:59 PM CDT Hospital Encounter [facility] ([facility]) [address] [place] [address] Discharge Disposition: Discharge to home or self care 12/20/2024 [facility]ally Invasive Surgery [address] [place] [address] Advanced Medicine 12th Floor, [place] [address] Sony Moore MD Medical Question/Miscellane ous from Last 3 Months Immunizations Immunization Administration Dates Next Due Flucelvax [...] on file Legal Sex Male 2:25 AM GAS DISTRIBUTION PLANT OPERATOR Gender Identity Not on file Sexual Orientation Not on file Obstetrics History Last Filed Vital Signs Vital Sign Reading Time Taken Comments Blood Pressure 135/84 08/06/2022 9:30 PM GAS DISTRIBUTION PLANT OPERATOR Pulse 69 08/06/2022 9:30 PM GAS DISTRIBUTION PLANT OPERATOR Temperature 36.4 C (97.6 F) 08/06/2022 6:27 PM GAS DISTRIBUTION PLANT OPERATOR Respiratory Rate 20 08/06/2022 9:30 PM GAS DISTRIBUTION PLANT OPERATOR Oxygen Saturation 95% 08/06/2022 9:30 PM GAS DISTRIBUTION PLANT OPERATOR Inhaled Oxygen Concentration - - Weight 126.2 kg (278 lb 3.2 oz) 021 11:08 AM GAS DISTRIBUTION PLANT OPERATOR Height 188 cm (6' 2) 07/24/2020 11:08 AM GAS DISTRIBUTION PLANT OPERATOR Body Mass Index 35.72 07/24/2020 11:08 AM GAS DISTRIBUTION PLANT OPERATOR Plan of Treatment Health Maintenance Due Date Last Done Comments Fall Risk Assessment 1960 Hepatitis C Screening 1960 DTaP/Tdap/Td Vaccine (1 - Tdap) 01/24/1971 Hepatitis B Screening 01/24/1978 Pneumococcal vaccine 65+ (1 of 1 - PCV) 01/24/2010 Zoster Vaccine (1 of 2) 01/24/2010 Depression Screening 07/24/2021 07/24/2020 Prostate Cancer Screening-PSA 07/25/2022 07/25/2020 Abdominal Aortic Aneurysm (A AA) Screen 01/24/2025 Well Visit 65+ 01/24/2025 Influenza Vaccine (#1) 2025 0, 03/04/2019, 03/05/2018, Additional history exists Colon Cancer Screening-Colonoscopy 06/14/2025 06/14/2015 Colon Cancer Screening-CT Colonography Discontinued 06/14/2015 Colon Cancer Screening-DNA Stool Discontinued 06/14/19 16 Colon Cancer Screening-FIT Discontinued 06/14/2015 Colon Cancer Screening-Sigmoidoscopy Discontinued 06/14/2015 Procedures Procedure Name Priority Date/Time Associated Diagnosis Comments CT BODY OUTSIDE REFERENCE Routine 2025 12:[address] BODY OUTSIDE REFERENCE Routine 2025 12:41 PM CDT XR TRANSFER OF OUTSIDE FILMS Routine 2025 12:40 PM CDT XR TRANSFER OF OUTSIDE FILMS Routine 2025 12:39 PM CDT PSA SCREEN Routine 07/25/2020 9:08 AM GAS DISTRIBUTION PLANT OPERATOR Screening for hypothyroidism Screening for hyperlipidemia Screening PSA (prostate specific antigen) Screening for hypertension Fatigue, unspecified type Class 2 obesity with body mass index (BMI) of 35.0 to 35.9 in adult, unspecified obesity type, unspecified whether serious comorbidity present COLONOSCOPY Routine 06/14/2015 from Last 3 Months or Most Recently Relevant to Health Maintenance Results * CT Body Outside Reference (2025 12:41 PM CDT) Impressions RAD_PACS_[facility] - 2025 12:41 PM CDT These images are for Reference purposes only and have not been reviewed by [facility]. There will be no report generated by a [facility] Radiologist. Narrative RAD_PACS_[facility] - 2025 12:41 PM CDT EXAMINATION: Images For Reference Purposes Only Sony Moore MD [facility] PROCEDURES Final Result Performing Organization Address [facility] de Phone Number [email or web address] * CT Body Outside Reference (2025 12:41 PM CDT) Impressions RAD_PACS_[facility] - 2025 12:41 PM CDT These images are for Reference purposes only and have not been reviewed by [facility]. There will be no report generated by a [facility] Radiologist. Narrative RAD_PACS_[facility] - 2025 12:41 PM CDT EXAMINATION: Images For Reference Purposes Only Sony Moore MD [facility] [place] PROCEDURES Final Result Performing Organization Address [facility] Co de Phone Number [email or web address] * XR Outside Reference (2025 12:40 PM CDT) Impressions RAD_BEAN_[facility] - 2025 12:40 PM CDT These images are for Reference purposes only and have not been reviewed by [facility]. There will be no report generated by a [facility] Radiologist. Narrative RAD_PACS_[facility] - 2025 12:40 PM CDT EXAMINATION: Images For Reference Purposes Only Sony Moore MD IMG XR PROCEDURES Final Result Performing Organization Address [facility] Co de Phone Number [email or web address] * XR Outside Reference (2025 12:39 PM CDT) Impressions RAD_BEAN_[facility] - 2025 12:39 PM CDT These images are for Reference purposes only and have not been reviewed by [facility]. There will be no report generated by a [facility] Radiologist. Narrative RAD_PACRobert_MINE - 2025 12:39 PM CDT EXAMINATION: Images For Reference Purposes Only Sony Moore MD IMG XR PROCEDURES Final Result Performing Organization Address [facility] Co de Phone Number [email or web address] * (ABNORMAL) PSA screen (07/25/2020 9:08 AM GAS DISTRIBUTION PLANT OPERATOR) PSA 4.3(H) 0.0 - 4.0 ng/mL [facility] - 01 Comment: Corinne ECLIA methodology. According to the [place] [employer], Serum PSA should decrease [...] disease. Blood specimen (specimen) 07/25/2020 9:08 AM GAS DISTRIBUTION PLANT OPERATOR 07/25/2020 Narrative [facility] - 07/26/2020 9:37 AM GAS DISTRIBUTION PLANT OPERATOR Performed at: - [address] [id number] Strapping Machine Operator: Rick Villalta PhD, Phone: [phone] Tigre Gardiner MD LAB BLOOD ORDERABLES Final R esult [facility] - 01 * Colonoscopy (06/14/2015) Anatomical Region Laterality Modality Other us Historical Provider MD ENDOSCOPY PROCEDURES Toma l Result from Last 3 Months or Most Recently Relevant to Health Maintenance Insurance [employer] OOS [employer] ACCESS OOS BLUE ACCESS OOS [employer] Care Teams Concrete Swimming Pool Installer Relationship Specialty Start Date End Date Tigre Gardiner MD [address] [place] [address] PCP - General Family Medicine 07/24/20
--- OUTSIDE RECORDS SUMMARY | 2025-03-01 19:56 | XMS_ITS | Encounter Summary ---
Author Organization [facility] Address [address] [facility] [place] [address] Care Team Providers Care Digital Sales Director Name Role Phone Unavailable Primary Care Provider Unavailabl e Encounter Details Date Type Department Care Team (Late st Contact Info) Description 02/03/2018 Lab Requisition [facility] Care DermPath Lab [address] [place] [address] Evan Rand MD [address] [place] [address] Social History Tobacco Use Types Packs/Day Years Used Date Smoking Tobacco: Never Assessed Sex and Gender Information Value Date Recorded Sex Assigned at Not on file Legal Sex Male 6:27 PM HAND STITCHER Gender Identity Not on file Sexual Orientation Not on file documented as of this encounter Plan of Treatment Not on file documented as of this encounter Procedures Procedure Name Priority Date/Time Associated Diagnosis Comments DERMATOPATHOLOGY Routine 02/02/2018 12:0 0 AM CDT documented in this encounter Results * DERMATOPATHOLOGY (02/02/2018 12:00 AM CDT) Case Report Dermatopathology Report Case: [id number] Authorizing Provider: Evan Rand MD Collected: 02/02/2018 [...] specimen consists of a punch biopsy measuring [id number], bisected. Jar 0. Specimen B: Received is one formalin filled container labeled with the patient's name and designated right sup buttock. The specimen consists of a punch biopsy measuring [id number], bisected. Jar 0. 8 5:51 PM T [...] characteristic determined by the Dermatopathology Laboratory at [facility]. These tests need not be, and therefore are not, approved by the [place] Food and Drug Administration. The tests are used for clinical purposes. Billing Codes Specimen Charges Stain Charges 20257 02809 1 1 24645 10835 77624 91397 18920 09822 89169 42143 1 1 1 1 1 1 1 1 8 5:51 PM CDT DERMATOPATHOLOGY LABORATORY Embedded Images 8 5:51 PM CDT DERMATOPATHOLOGY LABORATORY Pathology/Cytology TISSUE SPECIMEN FROM SKIN / Unknown 02/02/2018 02/03/2018 12:29 PM CDT Miscellaneous samples (specimen) TISSUE SPECIMEN FROM SKIN / Unknown 02/02/2018 02/03/2018 12:29 PM CDT Evan Rand MD LAB - PATHOLOGY/CYTOLOGY ORD ERABLES Final Result DERMATOPATHOLOGY LABORATORY [facility] - Department of Dermatology [facility] [facility], 5th [place] [address], [facility] [phone] documented in this encounter Visit Diagnoses Not on filedocumented in this encounter
== END 2025-03-01 20:15 | disposition home or self-care (01) ==
PROVIDERS: Emergency Provider Family Medicine; PCP Internal Medicine
DX: S90.32XA Contusion of left foot, initial encounter (principal); E78.5 Hyperlipidemia, unspecified; E11.9 Type 2 diabetes mellitus without complications; K21.9 Gastro-esophageal reflux disease without esophagitis; Z87.891 Personal history of nicotine dependence; Z90.49 Acquired absence of other specified parts of digestive tract; Z79.82 Long term (current) use of aspirin; W01.190A Fall on same level from slipping, tripping and stumbling with subsequent striking against furniture, initial encounter
CPT/HCPCS: 73630; 99283

== ENCOUNTER 2025-05-04 14:46 | Outpatient (CLI) | payer OTHER, SELFPAY ==
--- NOTE | ~2025-05-04 | US_ITS ---
EXAM/PROCEDURE: US scrotum doppler HISTORY: Right groin pain COMPARISON: October 03, 2024 TECHNIQUE: Scrotal ultrasound performed FINDINGS: Ectasia of the rete testes again noted not grossly changed. Echotexture and vascular flow for both testicles otherwise within normal limits. RIGHT TESTICLE: 4.6 x 3.1 x 3.2 cm 8 x 7 x 7 mm epididymal head cyst or spermatocele. Small right-sided hydrocele. No varicocele. LEFT TESTICLE: 4.4 x 2.2 x 3.0 cm 4 x 3 x 3 mm epididymal head cyst or spermatocele. No hydrocele or varicocele on the right side. IMPRESSION: Significantly decreased size of previously described right-sided fluid accumulation and small bilateral benign-appearing spermatoceles or epididymal head cyst. 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 Reviewed, dictated and finalized at location A. TE MANAGER IMPRESSION: Significantly decreased size of previously described right-sided fl uid accumulation and small bilateral benign-appearing spermatoceles or epididym al head cyst. 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
--- NOTE | ~2025-05-04 | US_ITS ---
EXAM/PROCEDURE: US soft tissue groin RT HISTORY: Right groin pain COMPARISON: November 23, 2024 TECHNIQUE: Directed evaluation of the right groin performed by technologist FINDINGS: Fluid area described on the previous exam is not seen on today's study. No suspicious lesion mass or abnormal fluid collection in the right inguinal/groin region. IMPRESSION: No fluid collection seen in the right groin which and on today's exam. Reviewed, dictated and finalized at location A. ROAD WATCHMAN
--- OUTSIDE RECORDS SUMMARY | 2025-05-04 14:49 | XMS_ITS | Encounter Summary ---
Author Organization [facility] Address [address] [place] [address] Care Team Providers Care Torch Straightener Name Role Phone Unavailable Primary Care Provider Unavailabl e Encounter Details Date Type Department Care Team (Late st Contact Info) Description 04/16/2006 Outpatient Historical [facility] ([facility]) [address] [place] [address] Nikita Carrera MD NO ADDRESS ON FILE Social History Tobacco Use Types Packs/Day Years Used Date Smoking Tobacco: Never Assessed Sex and Gender Information Value Date Recorded Sex Assigned at Not on file Legal Sex Male 3:16 AM DIRECTOR OF TRAUMA Gender Identity Not on file Sexual Orientation Not on file documented as of this encounter Plan of Treatment Not on file documented as of this encounter Visit Diagnoses Not on filedocumented in this encounter
--- OUTSIDE RECORDS SUMMARY | 2025-05-04 14:49 | XMS_ITS | Clinical Summary ---
Author Organization [facility] Address [address] [place] [address] Care Team Providers Care Form Setter Supervisor Name Role Phone Francois Zimmer DO Primary Care Provider [phone] Allergies Active Allergy Reactions Criticality Noted Date Comments Sulfa (Sulfonamide Antibiotics) Headache Reaction: Headache, Medications gabapentin (NEURONTIN) 100 mg capsule Take 1 capsule (100 mg total) by mouth 2 (two) times a day For 2 weeks: once nightly. Then increase to twice daily 90 capsule 3 04/30/2025 Active Active Problems Problem Noted Date Diagnosed Date Recurrent right inguinal hernia 04/04/2025 Chronic fatigue 07/24/2020 Chronic pain of left knee 09/26/2018 Chronic pain of right knee 09/26/2018 Induratio penis plastica 10/24/2008 Encounters Date Type Department Care Team Description 04/30/2025 9:00 AM WILDLIFE REFUGE SPECIALIST Office Visit [facility] Urology [address] [place] [address] Medical Office Building [address] [place] [address] Mega Berg MD Right testicular pain (Primary Dx); Right inguinal pain 04/04/2025 2:00 PM CDT Office Visit [facility] Minimally Invasive Surgery [address] [facility] Medical Office Building [address] [place] [address] Sony Moore MD Recurrent right inguinal hernia (Primary Dx); Groin pain, chronic, right from Last 3 Months Immunizations Immunization Administration Dates Next Due Flucelvax Influenza Quad 04/06/2020,03/05/2018,0 07/24/2016 Influenza, Quadrivalent, Spl it, Preservative Free, Intramuscular 03/04/2019,07/10/2017 Surgical History Surgery Date Site/Laterality Comments BREAST LUMPECTOMY Left Breast Lumpectomy - 04/2005 (Added by TW Conv) CHOLECYSTECTOMY 06/14/2009 - 06/13/2010 INGUINAL HERNIA REPAIR 09/12/2024 - 10/11/2024 Right Robotic repair Medical History Medical History Date Comments Migraine [...] Cigarettes Q uit: 1986 Smokeless Tobacco: Never Tobacco Cessation:Counseling Given: Not Answered Alcohol Use Standard Drinks/Week Comments Not Currently [...] on file Legal Sex Male 2:25 AM WILDLIFE REFUGE SPECIALIST Gender Identity Not on file Sexual Orientation Not on file Last Filed Vital Signs Vital Sign Reading Time Taken Comments Blood Pressure 108/66 04/04/2025 1:58 PM CDT Pulse 75 04/04/2025 1:58 PM CDT Temperature 36.5 C (97.7 F) 04/04/2025 1:58 PM CDT Respiratory Rate 20 08/06/2022 9:30 PM WILDLIFE REFUGE SPECIALIST Oxygen Saturation 94% 04/04/2025 1:58 PM CDT Inhaled Oxygen Concentration - - Weight 121.4 kg (267 lb 9.6 oz) 04/04/2025 1:58 PM CDT Height 182.9 cm (6') 04/04/2025 1:58 PM CDT Body Mass Index 36.29 04/04/2025 1:58 PM CDT Plan of Treatment Health Maintenance Due Date Last Done Comments Fall Risk Assessment 1960 Hepatitis C Screening 1960 DTaP/Tdap/Td Vaccine (1 - Tdap) 01/24/1971 Hepatitis B Screening 01/24/1978 Pneumococcal vaccine 65+ (1 of 1 - PCV) 01/24/2010 Depression Screening 07/24/2021 07/24/2020 Prostate Cancer Screening-PSA 07/25/2022 07/25/2020 Abdominal Aortic Aneurysm (A AA) Screen 01/24/2025 Well Visit 65+ 01/24/2025 Influenza Vaccine (#1) 2025 4, 02/13/2023, 03/27/2022, Additional history exists Colon Cancer Screening-Colonoscopy 06/14/2025 06/14/2015 Colon Cancer Screening-CT Colonography Discontinued 06/14/2015 Colon Cancer Screening-DNA Stool Discontinued 06/14/19 16 Colon Cancer Screening-FIT Discontinued 06/14/2015 Colon Cancer Screening-Sigmoidoscopy Discontinued 06/14/2015 Zoster Vaccine Completed 07/11/2022, 05/09/2022 Procedures Procedure Name Priority Date/Time Associated Diagnosis Comments PSA SCREEN Routine 07/25/2020 9:08 AM WILDLIFE REFUGE SPECIALIST Screening for hypothyroidism Screening for hyperlipidemia Screening PSA (prostate specific antigen) Screening for hypertension Fatigue, unspecified type Class 2 obesity with body mass index (BMI) of 35.0 to 35.9 in adult, unspecified obesity type, unspecified whether serious comorbidity present COLONOSCOPY Routine 06/14/2015 from Last 3 Months or Most Recently Relevant to Health Maintenance Results * (ABNORMAL) PSA screen (07/25/2020 9:08 AM WILDLIFE REFUGE SPECIALIST) PSA 4.3(H) 0.0 - 4.0 ng/mL [facility] - 01 Comment: Corinne ECLIA methodology. According to the [place] [employer], Serum PSA should decrease and [...] disease. Blood specimen (specimen) 07/25/2020 9:08 AM WILDLIFE REFUGE SPECIALIST 07/25/2020 Narrative [facility] - 07/26/2020 9:37 AM WILDLIFE REFUGE SPECIALIST Performed at: 01 - [facility] [id number] Rn Forensic: Rick Villalta PhD, Phone: [phone] Tigre Gardiner MD LAB BLOOD ORDERABLES Final R esult [facility] - 01 * Colonoscopy (06/14/2015) Anatomical Region Laterality Modality Other Historical Provider ENDOSCOPY PROCEDURES Toma l Result from Last 3 Months or Most Recently Relevant to Health Maintenance Insurance [employer] OOS [employer] OOS BLUE ACCESS OOS AETNA Care Teams Form Setter Supervisor Relationship Specialty Start Date End Date Francois Zimmer DO [address] [facility] [place] [address] PCP - General Internal Medicine 04/04/25
--- OUTSIDE RECORDS SUMMARY | 2025-05-04 14:49 | XMS_ITS | Encounter Summary ---
Author Organization [facility] Address [address] [place] [address] Care Team Providers Care Staff Development Educator Name Role Phone Unavailable Primary Care Provider Unavailabl e Encounter Details Date Type Department Care Team (Late st Contact Info) Description 10/02/2024 Lab Requisition [facility] - DermPath Lab [address] [facility] [place] [address] Samantha Robledo MD [address] [facility] [address] [place] [address] Social History Tobacco Use Types Packs/Day Years Used Date Smoking Tobacco: Never Smokeless Tobacco: Never Sex and Gender Information Value Date Recorded Sex Assigned at Not on file Legal Sex Male 6:27 PM DOOR CLOSER Gender Identity Not on file Sexual Orientation Not on file documented as of this encounter Plan of Treatment Not on file documented as of this encounter Procedures Procedure Name Priority Date/Time Associated Diagnosis Comments DERMATOPATHOLOGY Routine 10/02/2024 8:33 AM CDT documented in this encounter Results * DERMATOPATHOLOGY (10/02/2024 8:33 AM CDT) Case Report Dermatopathology Report Case: [id number] Authorizing Provider: Samantha Robledo MD Collected: 10/02/2024 08:33 AM Ordering Location: [facility] Physician [facility] - Received: 10/03/2024 12:28 PM DermPath Lab [...] specimen consists of a shave biopsy measuring [id number] mm. Jar 0. 11:35 AM CDT DERMATOPATHOLOGY [...] characteristic determined by the Dermatopathology Laboratory at [facility], directed by Dr. Blanca Brumfield. These tests need not be, and therefore are not, approved by the [place] Food and Drug Administration. The tests are used for clinical purposes. Billing Codes Specimen Charges Stain Charges 45500 1 11:35 AM CDT DERMATOPATHOLOGY LABORATORY Embedded Images 11:35 AM CDT DERMATOPATHOLOGY LABORATORY Pathology/Cytolo gy TISSUE SPECIMEN FROM SKIN / Unknown 10/02/2024 8:33 AM CDT 10/03/2024 12:28 PM CDT Samantha Robledo MD LAB - PATHOLOGY/CYTOLOGY OR DERABLES Final Result DERMATOPATHOLOGY LABORATORY [facility] - Department of Dermatology [address], [address] [phone] documented in this encounter Visit Diagnoses Not on filedocumented in this encounter
--- OUTSIDE RECORDS SUMMARY | 2025-05-04 14:49 | XMS_ITS | Encounter Summary ---
Author Organization [facility] Address [address] [place] [address] Care Team Providers Care Solderer Dipper Name Role Phone Unavailable Primary Care Provider Unavailabl e Encounter Details Date Type Department Care Team (Late st Contact Info) Description 02/03/2018 Lab Requisition [facility] Care DermPath Lab [address] [place] [address] Evan Rand MD [address] [place] [address] Social History Tobacco Use Types Packs/Day Years Used Date Smoking Tobacco: Never Assessed Sex and Gender Information Value Date Recorded Sex Assigned at Not on file Legal Sex Male 6:27 PM CIRCULAR STUFFER Gender Identity Not on file Sexual Orientation Not on file documented as of this encounter Plan of Treatment Not on file documented as of this encounter Procedures Procedure Name Priority Date/Time Associated Diagnosis Comments DERMATOPATHOLOGY Routine 02/02/2018 12:0 0 AM CDT documented in this encounter Results * DERMATOPATHOLOGY (02/02/2018 12:00 AM CDT) Case Report Dermatopathology Report Case: [id number] Authorizing Provider: Evan Rand MD Collected: 02/02/2018 [...] specimen consists of a punch biopsy measuring [id number], bisected. Jar 0. Specimen B: Received is one formalin filled container labeled with the patient's name and designated right sup buttock. The specimen consists of a punch biopsy measuring [id number], bisected. Jar 0. 8 5:51 PM T [...] purposes. Billing Codes Specimen Charges Stain Charges 43547 08906 1 1 23857 73683 03096 51548 24518 09135 64375 08848 1 1 1 1 1 1 1 1 8 5:51 PM CDT DERMATOPATHOLOGY LABORATORY Embedded Images 8 5:51 PM CDT DERMATOPATHOLOGY LABORATORY Pathology/Cytology TISSUE SPECIMEN FROM SKIN / Unknown 02/02/2018 02/03/2018 12:29 PM CDT Miscellaneous samples (specimen) TISSUE SPECIMEN FROM SKIN / Unknown 02/02/2018 02/03/2018 12:29 PM CDT Evan Rand MD LAB - PATHOLOGY/CYTOLOGY ORD ERABLES Final Result DERMATOPATHOLOGY LABORATORY [facility] - Department of Dermatology [facility] [facility] [place] [address], [facility] [phone] documented in this encounter Visit Diagnoses Not on filedocumented in this encounter
--- OUTSIDE RECORDS SUMMARY | 2025-05-04 14:49 | XMS_ITS | Encounter Summary ---
Author Organization [facility] Address 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 Gender Identity Not on file Sexual Orientation Not on file documented as of this encounter Plan of Treatment Not on file documented as of this encounter Procedures Procedure Name Priority Date/Time Associated Diagnosis Comments CBC WITH DIFFERENTIAL Routine 04/16/2006 11:01 AM CAKE FROSTER CBC WITH DIFFERENTIAL Routine 04/16/2006 11:01 AM CAKE FROSTER documented in this encounter Results * (ABNORMAL) CBC WITH DIFFERENTIAL (04/16/2006 11:01 AM CAKE FROSTER) NEUTROPHILS 78(H) 45 - 70 % INTERFAC [...] K/uL INTERFACE SYSTEM 04/16/2006 11:0 1 AM CAKE FROSTER Nikita Sandoval MD HEMATOLOGY ORDERABLES Final Re sult Performing Organization Address City/[facility] de Phone Number INTERFACE SYSTEM Refer to clinic/hospital department * (ABNORMAL) CBC WITH DIFFERENTIAL (04/16/2006 11:01 AM CAKE FROSTER) WBC 8.6 4.0 - 9.8 K/uL INTERFACE [...] fL INTERFACE SYSTEM 04/16/2006 11:0 1 AM CAKE FROSTER Nikita Sandoval MD HEMATOLOGY ORDERABLES Final Re darynt Performing Organization Address [facility] de Phone Number INTERFACE SYSTEM Refer to clinic/hospital department documented in this encounter Visit Diagnoses Diagnosis Chest pain, unspecified- Primary documented in this encounter
--- OUTSIDE RECORDS SUMMARY | 2025-05-04 14:49 | XMS_ITS | Clinical Summary ---
Author Organization [facility] Address [address] [place] [id number] Care Team Providers Care Retail Loan Officer Name Role Phone Unavailable Primary Care [...] of 2) 01/24/2010 COVID-19 Vaccine ( - 2024-2 6 season) 2025 Influenza Adult (#1) 2025 RSV Immunization or 60+ Years (1 - 1-dose 75+ series) 01/24/2035 Hepatitis A Vaccines Aged Out No long er eligible based on patient's age to complete this topic Meningococcal B Vaccine Aged Out No l onger eligible based on patient's age to complete this topic Meningococcal Vaccine Aged Out No senthil jeannette eligible based on patient's age to complete this topic RSV Immunizations Under 20 Months Aged Out No longer eligible based on patient's age to complete this topic
--- OUTSIDE RECORDS SUMMARY | 2025-05-04 14:49 | XMS_ITS | Clinical Summary ---
Author Organization [facility] Address [address] [place] [address] Care Team Providers Care Air And Missile Defense Crewmember Name Role Phone Unavailable Primary Care Provider Unavailabl e Source Comments [facility],non-owned Affiliates and Associated Physician Practices is amultiple site organization consisting of ambulatory clinics and hospital sitesin [place], [place], [place] and [place]. This disclosure is being madepursuant to the Care Everywhere program and may not contain all information available regarding this patient. Last updated 18.[facility] Allergies Active Allergy Reactions Criticality Noted Date [...] on file Legal Sex Male 6:27 PM SNUFF GRINDER Gender Identity Not on file Sexual Orientation Not on file Last Filed Vital Signs Vital Sign Reading Time Taken Comments Blood Pressure 126/70 05/05/2021 11:54 AM SNUFF GRINDER Pulse 83 05/05/2021 11:54 AM SNUFF GRINDER Temperature 36.6 C (97.8 F) 05/05/2021 11:54 AM SNUFF GRINDER Respiratory Rate 16 05/05/2021 11:54 AM SNUFF GRINDER Oxygen Saturation 96% 05/05/2021 11:54 AM SNUFF GRINDER Inhaled Oxygen Concentration - - Weight 117.9 kg (260 lb) 05/21/2018 2:52 PM SNUFF GRINDER Height 182.9 cm (6') 05/21/2018 2:52 PM SNUFF GRINDER Body Mass Index 35.26 05/21/2018 2:52 PM SNUFF GRINDER Plan of Treatment Health Maintenance Due Date [...]
--- OUTSIDE RECORDS SUMMARY | 2025-05-04 14:49 | XMS_ITS | Clinical Summary ---
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
--- OUTSIDE RECORDS SUMMARY | 2025-05-04 14:49 | XMS_ITS | Encounter Summary ---
Author Organization [facility] Address [address] [place] [address] Care Team Providers Care Glue Mounter Operator Name Role Phone Unavailable Primary Care Provider Unavailabl e Encounter Details Date Type Department Care Team (Late st Contact Info) Description 04/16/2006 Outpatient Historical [facility] [address] 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
== END 2025-05-04 14:47 | disposition home or self-care (01) ==
PROVIDERS: PCP Internal Medicine; Visit Provider Surgery
DX: R10.31 Right lower quadrant pain (principal); R19.09 Other intra-abdominal and pelvic swelling, mass and lump
CPT/HCPCS: 76870; 76882; 93976